=== PATIENT | female | born 1975 | race Caucasian/White ===

== ENCOUNTER 2016-06-17 10:33 | Emergency (ER) | payer OTHER ==
[2016-06-17] MEDS ORDERED: predniSONE TAB* 20 MG PO ONE (16:19)
[2016-06-17] MEDS ORDERED: Albuterol/Ipratropium NEB.SOL* Albuterol 2.5 MG/Ipratropium 0.5 MG 3 ML INH ONE (16:19)
[2016-06-17] MEDS ORDERED: Levofloxacin TAB* 250 MG PO ONE (16:20)
--- NOTE | 2016-06-17 17:21 | RAD ---
INDICATION: Shortness of breath and cough COMPARISON: Most recent comparison chest x-rays dated August 14, 2014 TECHNIQUE: PA and lateral views of the chest were obtained. FINDINGS: The heart and mediastinum are normal in size and contour. The lungs are grossly clear. There is no evidence of large pleural effusion. Visualized bones are normal for the patient's age. There is no radiographic evidence of free air beneath the diaphragm IMPRESSION: No radiographic evidence of acute cardiopulmonary disease.
[2016-06-17] MEDS ORDERED: Albuterol HFA INHALER* 8 gm MDI INH ONE (18:18)
[2016-06-17 18:36] VITALS: BP 128/88
--- NOTE | 2016-06-20 07:59 | ED ---
Yadira Petit Rebecca, scribed for Abdias Mccormick MD on 06/17/16 at 1607 . Asthma - HPI Summary HPI Summary: Pt is a 40 y/o F who presents to ED c/o asthma exacerbation characterized as SOB and wheezing. SOB began suddenly 2 days ago and has been intermittent since onset. Sx aggravated by walking, alleviated by nothing. Additionally c/o HARRIS, vomiting, coughing and R ear pain. HARRIS is currently ranked 8/10. Denies CP, fever , hematemesis, abd pain, dysuria, rhinorrhea, sore throat and edema. SHx smoking. Denies recent travel. PMHx asthma. Does not have an inhaler due to losing her insurance, which he has regained but has not found a PCP yet. IF THERE IS ONE, PLEASE SEE DICTATION BY DR. MCCORMICK FOR FURTHER INFORMATION. - History of Current Complaint Chief Complaint: EDAsthma Stated Complaint: HEADACHE/VOMITING/SOB Time Seen by Provider: 06/17/16 16:05 Hx Obtained From: Patient Onset/Duration: Sudden Onset, Lasting Days - 2 days, Still Present Timing: Intermittent Episode Lasting Initial Severity: Moderate Current Severity: Severe Pain Intensity: 8 Pain Scale Used: 0-10 Numeric Location/Character: Wheezing Aggravating Symptoms: Exertion Alleviating Symptoms: Nothing Associated Signs and Symptoms: Positive: Shortness of Breath - Allergy/Home Medications Allergies/Adverse Reactions: Allergies Allergy/AdvReac Type Severity Reaction Status Date / Time Penicillins Allergy Severe Hives Verified 07/23/15 10:38 Raspberry Allergy Hives Verified 07/23/15 10:38 PMH/Surg Hx/FS Hx/Imm Hx Endocrine/Hematology History: Denies: Hx Anticoagulant Therapy Respiratory History: Reports: Hx Asthma Psychiatric History: Reports: Hx Depression - Cancer History Hx Chemotherapy: No Hx Radiation Therapy: No - sister has uterine cancer Infectious Disease History: No Infectious Disease History: Denies: Traveled Outside the [place] in Last 30 Days - Family History Known Family History: Positive: Other - Breast CA, COPD - Social History Alcohol Use: Occasionally Alcohol Amount: 2/day Substance Use Type: Reports: None Hx Tobacco Use: Yes Smoking Status (MU): Heavy Every Day Tobacco Smoker Review of Systems - ROS Summary Review of Systems Summary: IF THERE IS ONE, PLEASE SEE DICTATION BY DR. MCCORMICK FOR FURTHER INFORMATION. Positive: Ear Ache - right. Negative: Sore Throat, Nasal Discharge Negative: Chest Pain Positive: Shortness Of Breath, Cough, Other - wheezing Positive: Vomiting, Other - Denies hematemesis. Negative: Abdominal Pain Negative: dysuria Negative: Edema Positive: Headache All Other Systems Reviewed And Are Negative: Yes Physical Exam - Summary Physical Exam Summary: GENERAL: Awake, alert, oriented, no acute distress, very pleasant HEAD/FACE: Head is normocephalic, atraumatic EYES: Anicteric sclera, clear conjunctiva ENT: Mucous membranes moist, no erythema, no discharge, no lesions, neck is supple, trachea is midline, no JVD CARDIAC: Regular rate and rhythm, S1, S2, no rub, no murmur, no gallop, 2+ radial and pedal pulses bilaterally RESPIRATORY: Clear to auscultation bilaterally with no rales or rhonchi, non- tender. Diffuse wheezing. ABDOMEN: Bowel sounds positive, no bruit, soft, non-tender, no CVA tenderness EXTREMITIES: No edema, warm, dry, moving all extremities in a grossly normal manner NEUROLOGICAL: Mood is appropriate, moving all extremities in a grossly normal manner IF THERE IS ONE, PLEASE SEE DICTATION BY DR. MCCORMICK FOR FURTHER INFORMATION. Triage Information Reviewed: Yes Vital Signs On Initial Exam: Initial Vitals Temp Pulse Resp BP Pulse Ox 98.8 F 94 24 157/101 98 06/17/16 10:42 06/17/16 10:42 06/17/16 10:42 06/17/16 10:42 06/17/16 10:42 Vital Signs Reviewed: Yes Diagnostics - Vital Signs Vital Signs Temp Pulse Resp BP Pulse Ox 06/17/16 10:42 98.8 F 94 24 157/101 98 - Laboratory Lab Statement: Any lab studies that have been ordered have been reviewed, and results considered in the medical decision making process. - Radiology CXR Xray Interpretation: No Acute Changes Radiology Interpretation Completed By: Radiologist Asthma Course/Dx - Diagnoses Provider Diagnoses: Bronchitis Discharge - Discharge Plan Condition: Stable Disposition: HOME Prescriptions: Levofloxacin TAB* [Levaquin TAB*] 750 mg PO DAILY #10 tab predniSONE TAB* [Deltasone TAB*] 60 mg PO DAILY #4 tab Patient Education Materials: Acute Bronchitis (ED) Referrals: Eufemia Alvarado MD [Primary Care Provider] - 3 Days Additional Instructions: Follow up with your primary care physician within the next 3 days. PLEASE RETURN TO THE EMERGENCY DEPARTMENT FOR NAUSEA, VOMITING, FEVER, PHOTOPHOBIA, CHEST PAIN, OR IF SYMPTOMS WORSEN. The documentation as recorded by the Yadira argueta Rebecca accurately reflects the service I personally performed and the decisions made by me, Abdias Mccormick MD.
== END 2016-06-17 16:45 | disposition home or self-care (01) ==
LOC: ED 10:33
DX: J40 Bronchitis, not specified as acute or chronic (principal); J45.901 Unspecified asthma with (acute) exacerbation; R06.02 Shortness of breath; R06.2 Wheezing; R05 Cough; H92.09 Otalgia, unspecified ear; F17.210 Nicotine dependence, cigarettes, uncomplicated
CPT/HCPCS: 71020; 99284; A9270-GY; J7512

== ENCOUNTER 2016-11-01 09:01 | Emergency (ER) | payer OTHER ==
[2016-11-01] MEDS ORDERED: Morphine INJ* 4 MG/ML 1 ML SYRINGE IV ONE (09:19)
[2016-11-01] MEDS ORDERED: NS 0.9% 1000 ML* 1,000 ML IV ONE (09:19)
[2016-11-01] MEDS ORDERED: Ketorolac INJ* 30 MG/ML 1 ML VIAL IV PUSH ONE (09:19)
--- NOTE | 2016-11-01 09:21 | ED ---
Abdominal Pain/Female - HPI Summary HPI Summary: 41F presents with left side flank pain since last night. It started with left sided back pain last night. Has history of back pain but not in this location. Denies any loss of bowel or bladder or saddle anaesthesia. Sates the pain now radiates to front of abdomen to LLQ. She sandeep any n/v/d/c. She denies any fever. She denies any vaginal discharge or bleeding. She denies any dysuria, hematuria, frequency, or urgency. She has never had this pain before. She states nothing makes it better or worst. She has history of cholecystectomy. - History of Current Complaint Chief Complaint: EDFlankPain Stated Complaint: LT SIDE FLANK PAIN Time Seen by Provider: 11/01/16 09:09 Pain Intensity: 10 Allergies/Adverse Reactions: Allergies Allergy/AdvReac Type Severity Reaction Status Date / Time Penicillins Allergy Severe Hives Verified 07/23/15 10:38 Raspberry Allergy Hives Verified 07/23/15 10:38 PMH/Surg Hx/FS Hx/Imm Hx Endocrine/Hematology History: Denies: Hx Anticoagulant Therapy Respiratory History: Reports: Hx Asthma Psychiatric History: Reports: Hx Depression - Cancer History Hx Chemotherapy: No Hx Radiation Therapy: No - sister has uterine cancer Infectious Disease History: No Infectious Disease History: Denies: Traveled Outside the [place] in Last 30 Days - Family History Known Family History: Positive: Unknown, Other - Breast CA, COPD - Social History Alcohol Use: Occasionally Alcohol Amount: 2/day Substance Use Type: Reports: None Hx Tobacco Use: Yes Smoking Status (MU): Heavy Every Day Tobacco Smoker Review of Systems Negative: Fever Negative: Chest Pain Negative: Shortness Of Breath Positive: Abdominal Pain - left side. Negative: Vomiting, Diarrhea, Nausea Positive: flank pain - left. Negative: dysuria, frequency, urgency All Other Systems Reviewed And Are Negative: Yes Physical Exam Triage Information Reviewed: Yes Vital Signs On Initial Exam: Initial Vitals Temp Pulse Resp BP Pulse Ox 97.7 F 74 16 154/86 97 11/01/16 09:04 11/01/16 09:04 11/01/16 09:04 11/01/16 09:04 11/01/16 09:04 Vital Signs Reviewed: Yes Appearance: Positive: Well-Appearing Skin: Positive: Warm, Dry Head/Face: Positive: Normal Head/Face Inspection Eyes: Positive: Normal, Conjunctiva Clear ENT: Positive: Normal ENT inspection, Pharynx normal, TMs normal Respiratory/Lung Sounds: Positive: Clear to Auscultation, Breath Sounds Present Cardiovascular: Positive: Normal, RRR Abdomen Description: Positive: Nontender, Soft, Other: - tenderness over lower back. Negative: CVA Tenderness (L) Bowel Sounds: Positive: Present Musculoskeletal: Positive: Other - neg SLR Diagnostics - Vital Signs Vital Signs Temp Pulse Resp BP Pulse Ox 11/01/16 09:04 97.7 F 74 16 154/86 97 - Laboratory Result Diagrams: 11/01/16 09:50 11/01/16 09:50 Lab Statement: Any lab studies that have been ordered have been reviewed, and results considered in the medical decision making process. - CT abd CT Interpretation: No Acute Changes - IMPRESSION: STATUS POST CHOLECYSTECTOMY. NO HYDRONEPHROSIS OR NEPHROLITHIASIS. CT Interpretation Completed By: Radiologist Re-Evaluation - Re-Evaluation First Eval Re-Evaluation Time: 11:00 Change: Improved Comment: pain improved Abdominal Pain Fem Course/Dx - Course Course Of Treatment: 41F presents with flank pain since yesterday. states started in lower back and since then has radiated to front. denies any UTI symptoms. denies any n/v/d. On exam pain is a little low to be kidney but will work up for kideny stone. CT abdomen normal. labs normal WBC and crp. u/a normal. will treat as musculoskeletal back pain with muscle relaxer. patient understands and agrees with plan - Diagnoses Differential Diagnosis: Positive: Renal Colic, Urinary Tract Infection, Other - pyelonephritis, back pain Provider Diagnoses: Back pain Discharge - Discharge Plan Condition: Good Disposition: HOME Prescriptions: Cyclobenzaprine TAB* [Flexeril 10 MG TAB*] 10 mg PO TID PRN #9 tab PRN Reason: Pain Patient Education Materials: Flank Pain (ED) Referrals: Eufemia Alvarado MD [Primary Care Provider] - Additional Instructions: Take muscle relaxers three times a day for 3 days Use ibuprofen or Tylenol for pain every 6 hours ice/heat area, move as much as possible Follow up with primary within 5 days Return to ED if unable to ambulate or develop any new or worsening symptoms
[2016-11-01 10:03] LABS: Hematocrit 43 % (35-47); Hemoglobin 14.4 g/dl (12.0-16.0); Mean Corpuscular HGB Conc 33 g/dl (31-36); Mean Corpuscular Hemoglobin 33 pg (27-31); Mean Corpuscular Volume 100 fL (80-97); Mean Platelet Volume 9 um3 (7.4-10.4); Red Blood Count 4.35 10^6/ul (4.0-5.4); Red Cell Distribution Width 15 % (10.5-15); White Blood Count 4.3 10^3/ul (3.5-10.8)
[2016-11-01 10:07] LABS: Urine Bilirubin Negative (Negative); Urine Glucose Negative (Negative); Urine Nitrite Negative (Negative)
[2016-11-01 10:19] LABS: Albumin 4.2 g/dL (3.2-5.2); BUN/Creatinine Ratio 13.9 (8-20); Calcium 9.7 mg/dL (8.6-10.3); EGFR Non-African American 90.2 (>60); Globulin 3.6 g/dL (2-4); Total Protein 7.8 g/dL (6.4-8.9)
--- NOTE | 2016-11-01 10:31 | RAD ---
CLINICAL HISTORY: Left flank pain COMPARISON: February 01, 2014 TECHNIQUE: Multiple contiguous axial CT scans were obtained of the abdomen and pelvis, without intravenous contrast enhancement. Coronal and sagittal multiplanar reformations are submitted for review. Oral contrast was not administered. FINDINGS: The study is limited by the lack of intravenous contrast. This limits evaluation of the solid organs and vasculature. LUNG BASES: The lung bases are clear. LIVER: The liver is normal in shape, size, contour, and attenuation. BILE DUCTS: There is no intrahepatic or extrahepatic biliary dilatation. GALLBLADDER: The gallbladder is not visualized. Surgical clips are noted in the gallbladder fossa. PANCREAS: The pancreas is normal, without mass or ductal dilatation. SPLEEN: Normal in size and appearance. UPPER GI TRACT: Evaluation of the gastrointestinal tract is limited by incomplete gastric distention. The upper GI tract is unremarkable. SMALL BOWEL AND MESENTERY: The small bowel is normal in contour, course, and caliber. There is no obstruction or dilatation. COLON: The colon is normal in contour, course, caliber. There is no pericolonic inflammatory change. There is a tubular, vermiform, hollow viscus that is blind ending, and originates from the cecum, consistent with a normal appendix. There is no periappendiceal inflammatory change. This is best seen on axial images 102 through 112 ADRENALS: Normal bilaterally. KIDNEYS: The kidneys are normal in shape, size, contour, and axis. There is no hydronephrosis or nephrolithiasis. BLADDER: The bladder is smooth in contour. PELVIC ORGANS: The uterus and adnexa are grossly normal for technique. AORTA: The aorta is normal. IVC: Unremarkable LYMPH NODES: There is no lymphadenopathy by size criteria. ABDOMINAL WALL: There is no evidence for abdominal wall hernia. BONES AND SOFT TISSUES: The bones and soft tissues are unremarkable. OTHER: None IMPRESSION: STATUS POST CHOLECYSTECTOMY. NO HYDRONEPHROSIS OR NEPHROLITHIASIS.
[2016-11-01 12:08] LABS: Potassium 4.7 mmol/L (3.5-5.0)
[2016-11-01 12:32] VITALS: BP 137/89
== END 2016-11-01 12:32 | disposition home or self-care (01) ==
LOC: ED 09:01
DX: R10.84 Generalized abdominal pain (principal); F17.210 Nicotine dependence, cigarettes, uncomplicated; M54.9 Dorsalgia, unspecified
CPT/HCPCS: 36415; 74176; 80053; 81003; 83690; 84702; 85025; 86141; 96374; 96375; 99283; J1885; J2270

== ENCOUNTER 2017-08-25 14:27 | Observation (INO) | payer OTHER ==
[2017-08-25 14:56] LABS: ABS Basophils 0 10^3/ul (0-0.2); ABS Eosinophils 0.1 10^3/ul (0-0.6); ABS Lymphocytes 1.8 10^3/ul (1.0-4.8); ABS Monocytes 0.2 10^3/ul (0-0.8); ABS Neutrophils 2.9 10^3/ul (1.5-7.7); ABS Nucleated RBC 0 10^3/ul; Eosinophil % 1.7 % (0-6); Hematocrit 36 % (35-47); Hemoglobin 12.5 g/dl (12.0-16.0); Lymphocyte % 35.6 % (25-47); Mean Corpuscular HGB Conc 35 g/dl (31-36); Mean Corpuscular Hemoglobin 35 pg (27-31); Mean Corpuscular Volume 102 fL (80-97); Mean Platelet Volume 7 um3 (7.4-10.4); Nucleated Red Blood Cells % 0; Platelet Count 274 10^3/ul (150-450); Red Blood Count 3.56 10^6/ul (4.0-5.4); Red Cell Distribution Width 14 % (10.5-15)
[2017-08-25 15:30] LABS: EGFR Non-African American 75.5 (>60)
--- NOTE | 2017-08-25 15:44 | RAD ---
INDICATION: Chest pain. COMPARISON: Comparison is made with a prior study from June 17, 2016. TECHNIQUE: Dual-energy PA and lateral views of the chest were obtained. FINDINGS: The heart is within normal limits in size. Mediastinal and hilar contours appear within normal limits. The lungs are clear. No pleural effusion or pneumothorax is seen. IMPRESSION: NO EVIDENCE FOR ACTIVE CARDIOPULMONARY DISEASE.
[2017-08-25] MEDS ORDERED: Nitroglycerin 2% OINT* 1 GM PAK TOPICAL ONE (17:33)
[2017-08-25] MEDS ORDERED: Albuterol 2.5 MG/3 ML NEB.SOL* (0.083%) INH PRN (18:02)
[2017-08-25] MEDS ORDERED: NS 0.9% 1000 ML* 1,000 ML IV SCH (18:15)
[2017-08-25] MEDS ORDERED: Azithromycin IV(*) 500 MG in NS 0.9% 250 ML* 250 ML IVPB SCH (19:00)
[2017-08-25] MEDS: Mometasone/Formoter 200/5 MDI INH SCH ×2 (19:25→19:40)
[2017-08-25] MEDS: Albuterol/Ipratropium NEB.SOL* Albuterol 2.5 MG/Ipratropium 0.5 MG 3 ML INH SCH ×2 (19:25→19:41)
[2017-08-25] MEDS: predniSONE TAB* 20 MG PO SCH (19:41)
--- NOTE | 2017-08-26 01:57 | HP ---
HISTORY AND PHYSICAL: DATE OF ADMISSION: 08/25/17 PRIMARY CARE PROVIDER: None. ATTENDING PHYSICIAN WHILE IN THE HOSPITAL: Dr. Joe Murphy* (report being dictated by Dom Espinal NP). CHIEF COMPLAINT: 1. Presyncope. 2. Chest pain. HISTORY OF PRESENT ILLNESS: Ms. Newberry is a 41-year-old female patient. She carries a history of asthma and depression and a remote history of IV drug use in the past. She comes in. She states the last couple of days, she has not been feeling well. She has had cold-like symptoms, sore throat, cough, aching all over, chills. No documented fevers. She has had episodes of occasional diarrhea. She denied having any abdominal pain or chest pain prior to today. She did admit to having again the cough, worsening shortness of breath, and just not feeling well, generalized malaise. She states her appetite has been okay, but she was concerned because today she was sitting on her bed, around 1: 30, she was getting ready for work and it was noted that everything went black. She felt like she was going to faint, she did not faint. She said she started having a pressure on her chest and at that point, she called her boyfriend into the room and they called 911 and she came into the hospital. She says the discomfort, she does not know how long it lasted. She described it as a tightness, heaviness in her chest going into the right side, down the right arm, in addition to this, worse with taking a deep breath. She denied having any discomfort like this previously. Denied having any exertional discomfort. She says that she is not having any discomfort now. The only discomfort she has now is on the right arm and the right neck area. She denies having any chest discomfort. Currently, she denies having any abdominal pain. She says she has not been vomiting. Again, there have been no urinary symptoms , but there has been a cough, and just not feeling well over the last couple of days. She came into the ED today. There was concern for the chest discomfort. We were asked to evaluate for admission. PAST MEDICAL HISTORY: Significant for: 1. Asthma. 2. Depression. 3. Remote history of IV drug use in the past. PAST SURGICAL HISTORY: She has had cholecystectomy. MEDICATIONS: Her home meds include only albuterol 2 puffs every 4 hours as needed. ALLERGIES TO MEDICATIONS: Include PENICILLIN. FAMILY HISTORY: Mother had a history of breast cancer. Father has history of lung cancer. SOCIAL HISTORY: She is about a qvud-b-qlle-a-day smoker. She has been smoking for about 23 years. She does drink 1 to 2 beers a day. Surrogate decision maker is not appointed at this point. She did admit to using crack cocaine occasionally. REVIEW OF SYSTEMS: There is no documented fever. She denied having any significant weight change. There was no double vision. She denies having any ear discharge. There was rhinorrhea. There was sore throat. There was no thyroid enlargement. She does admit to chest pain from my HPI. There is shortness of breath particularly with exertion. There is no orthopnea. There is no nocturnal dyspnea. She denies having any abdominal discomfort. She did admit to having some diarrhea, but no nausea, vomiting. No dysuria, no frequency. There was no seizure, no loss of consciousness. No pruritus and no skin ulcerations. Review of 14 systems was completed, all others negative. PHYSICAL EXAMINATION GENERAL: At this time, Ms. Newberry is a 41-year-old female patient. She is sitting in the ED stretcher. She does not appear to be in any acute distress. VITAL SIGNS: Blood pressure 152/91, pulse 62, respirations 15, O2 sat 95%, temperature 99.1. HEENT: Head: Atraumatic. Eyes: EOMs are intact. Sclerae anicteric and not pale. Throat: Oral mucosa appears to be dry. No oropharyngeal erythema. NECK: Supple. LUNGS: She did have expiratory wheezing noted in the upper lobes. Equal diaphragmatic expansion. HEART: Sounds S1, S2. Regular rate and rhythm. No murmurs, rubs, or gallops. ABDOMEN: Soft, it was flat, nontender. Bowel sounds were present. EXTREMITIES: Pulses were 2+ throughout. She is moving all 4 extremities with 5 /5 strength. NEUROLOGICAL: The patient is awake, alert, she is oriented x3. Tongue midline. Software Development Coordinator were equal. No gross focal deficits. SKIN: Intact. DIAGNOSTIC STUDIES/LAB DATA: WBC 5.0, RBC of 3.56, hemoglobin of 12.5, hematocrit of 36, platelet count of 274. D-dimer less than 200. Sodium 136, potassium 3.6, chloride 106, bicarb 25, BUN 7, creatinine 0.84, glucose 93, lactate 2.1, calcium 8.2. Total bili 0.2, AST 19, ALT 16, alk phos 70. Troponin 0, repeat 0. Albumin 3.2. EKG today, normal sinus rhythm, rate of 79. No ST elevation or T-wave inversions are noted. She had a chest x-ray, showed no evidence of active cardiopulmonary disease. Old medical records were reviewed. ASSESSMENT AND PLAN: Ms. Newberry is a 41-year-old female patient coming into the ED today with complaints of presyncopal episodes. In addition to this, complains of chest discomfort and cold symptoms. We were asked to evaluate for admission. She will be admitted under observation status for: 1. Chest pain. I suspect this is probably respiratory related. She said the pain got worse with taking a deep breath, it is mostly on the right side. She has been coughing for the last couple of days. In addition to this, she had upper respiratory infection symptoms. I will cycle another set of enzymes, get an echo in the morning to be sure. At this point, because she is wheezing on exam, I do not think a stress test is a good idea, but we will rule her out and get the echo and place her on telemetry and we will continue to follow this closely. I will check an ESR and CRP. 2. Asthma with mild exacerbation. She is having some wheezing on exam. I am going to give her some steroids, prednisone 40 mg daily. In addition to this, I have ordered azithromycin. I will order nebulizers every 6 hours while awake and we will continue Dulera and I am concerned that she might have an early bronchitis. I am also checking her for the flu. Sputum culture, legionella antigen, Streptococcus pneumoniae antigen. 3. History of depression. Supportive care. 4. Polysubstance abuse. Continue supportive care. 5. DVT prophylaxis. I have ordered SCDs. 6. Code status. Full code. 7. Fluids, electrolytes, and nutrition. She can have a heart-healthy diet. TIME SPENT: On admission 60 minutes, greater than half the time spent face-to- face with the patient obtaining my history and physical, other half of the time was spent going over the plan of care with the patient and implementing the plan of care. I did discuss the plan of care with my attending, Dr. Murphy; he is in agreement. DOM ESPINAL NP [id number]/[facility] #: [id number] SABRINA
[2017-08-26] MEDS: Albuterol/Ipratropium NEB.SOL* Albuterol 2.5 MG/Ipratropium 0.5 MG 3 ML INH SCH ×2 (04:28→08:33)
[2017-08-26 06:40] LABS: ABS Basophils 0 10^3/ul (0-0.2); ABS Eosinophils 0 10^3/ul (0-0.6); ABS Lymphocytes 0.7 10^3/ul (1.0-4.8); ABS Monocytes 0.1 10^3/ul (0-0.8); ABS Neutrophils 3.8 10^3/ul (1.5-7.7); ABS Nucleated RBC 0 10^3/ul; Eosinophil % 0 % (0-6); Hematocrit 36 % (35-47); Hemoglobin 12.6 g/dl (12.0-16.0); Lymphocyte % 14.6 % (25-47); Mean Corpuscular HGB Conc 35 g/dl (31-36); Mean Corpuscular Hemoglobin 35 pg (27-31); Mean Corpuscular Volume 102 fL (80-97); Mean Platelet Volume 8 um3 (7.4-10.4); Nucleated Red Blood Cells % 0; Platelet Count 238 10^3/ul (150-450); Red Blood Count 3.56 10^6/ul (4.0-5.4); Red Cell Distribution Width 14 % (10.5-15); White Blood Count 4.6 10^3/ul (3.5-10.8)
[2017-08-26 07:22] LABS: EGFR Non-African American 83.5 (>60)
[2017-08-26] MEDS: predniSONE TAB* 20 MG PO SCH (08:00)
[2017-08-26] MEDS: Mometasone/Formoter 200/5 MDI INH SCH (08:33)
[2017-08-26] MEDS ORDERED: Albuterol/Ipratropium NEB.SOL* Albuterol 2.5 MG/Ipratropium 0.5 MG 3 ML INH PRN (09:43)
--- NOTE | 2017-08-26 11:18 | ECHO ---
Patient: VIJAY SHAVER [facility] Rec#: [id number] : 1975 Date: 08/26/2017 Age: 41y Height: 165.1 cm / 65.0 in Weight: 87.09 kg / 191.9 lbs Sex: F BSA: 1.94 Room#: 453 Admit Date#: 08/25/2017 Type: Inpatient Referring: Naeem Carlson NP Reading: Claudia Luna MD Outbound Sales Professional: [facility] Transthoracic Echocardiogram Indication: Chest pain BP: 143/81 HR: 140 Rhythm: Tachycardia Findings History: Asthma, remote IVDA, SOB, smoker. Technical Comments: The study quality is good. Completed at 1000. Left Ventricle: The left ventricular chamber size is normal. There is no left ventricular hypertrophy. Global left ventricular wall motion and contractility are within normal limits. There is normal left ventricular systolic function. The estimated ejection fraction is 55-60%. There is no consistent Doppler evidence of clinically significant diastolic dysfunction. Left Atrium: The left atrium is mildly dilated. Right Ventricle: Moderator Band present. The right ventricular cavity size is normal. The right ventricular global systolic function is normal. Right Atrium: The right atrial cavity size is normal. Aortic Valve: The aortic valve is trileaflet. There is no evidence of aortic valve thickening. There is no evidence of aortic regurgitation. There is no evidence of aortic stenosis. Mitral Valve: The mitral valve leaflets are mildly thickened. There is trace to mild mitral regurgitation. There is no evidence of mitral stenosis. Tricuspid Valve: The tricuspid valve leaflets are normal. There is trace tricuspid regurgitation. Unable to estimate the right ventricular systolic pressure. There is no tricuspid stenosis. Pulmonic Valve: The pulmonic valve appears normal. There is no evidence of pulmonic regurgitation. There is no pulmonic stenosis. Pericardium: There is no significant pericardial effusion. Aorta: There is borderline dilatation of the ascending aorta. There is no dilatation of the aortic arch. The aortic root is normal in size. Pulmonary Artery: The main pulmonary artery is not well visualized. Venous: The inferior vena cava appears normal in size. There is an approximate 50% respiratory change in the inferior vena cava dimension. Conclusions The left ventricular chamber size is normal. Global left ventricular wall motion and contractility are within normal limits. The estimated ejection fraction is 55-60%. The right ventricular global systolic function is normal. There is trace to mild mitral regurgitation. There is trace tricuspid regurgitation. No prior echo to compare. Measurements Name Value Normal Range RVIDd (AP) 2D 2.8 cm (0.9 - 2.6) RVDdMajor (2D) 3.9 cm (2.2 - 4.4) RVAW (2D) 0.5 cm (0.2 - 0.5) RAd ISD 4CH 4.7 cm (3.4 - 4.9) RA (A4C)W 3.8 cm (2.9 - 4.6) IVSd (2D) 0.9 cm (0.6 - 1) LVPWd (2D) 1 cm (0.6 - 1) LVIDd (2D) 5 cm (3.6 - 5.4) LVIDs (2D) 3.4 cm - LV FS (2D) 31 % (25 - 45) Aortic Annulus 2.1 cm (1.4 - 2.6) Ao root diameter (2D) 2.9 cm (2.1 - 3.5) Ascending Ao 3.4 cm (2.1 - 3.4) Aortic arch 2.7 cm (1.8 - 3.4) LA dimension (AP) 2D 3.9 cm (2.3 - 3.8) LAd ISD 4CH 5.6 cm (2.9 - 5.3) LA ISD 4CH W 4 cm (2.5 - 4.5) Name Value Normal Range LA ESV SP 4CH (A/L) 59 ml - LA ESV SP 2CH (A/L) 69 ml - LA ESV BP (A/L) 65 ml - LA ESV BP (A/L) index 33 ml/m2 - LA ESV SP 4CH (MOD) 55 ml - LA ESV SP 2CH (MOD) 68 ml - Name Value Normal Range MV E-wave Vmax 1.18 m/sec - MV deceleration time 153.5 msec - MV A-wave Vmax 0.88 m/sec - MV E:A ratio 1.33 ratio - LV septal e' Vmax 0.08 m/sec - LV lateral e' Vmax 0.11 m/sec - LV E:e' septal ratio 14.75 ratio - LV E:e' lateral ratio 10.73 ratio - Name Value Normal Range AV Vmax 1.7 m/sec - AV VTI 35 cm - AV peak gradient 11.1 mmHg - AV mean gradient 5.46 mmHg - LVOT Vmax 1.3 m/sec - LVOT VTI 27.7 cm - LVOT peak gradient 6.76 mmHg - LVOT mean gradient 3.13 mmHg - RUSSEL Vmax 1.13 m/sec - Name Value Normal Range IVC diameter 2 cm - Name Value Normal Range PV Vmax 1.19 m/sec - PV peak gradient 5.74 mmHg -
[2017-08-26 11:38] VITALS: BP 156/92
--- NOTE | 2017-08-27 05:31 | DS ---
CC: Dr. Eufemia Alvarado; [facility] * DISCHARGE SUMMARY: DATE OF ADMISSION: 08/25/17 DATE OF DISCHARGE: 08/26/17 PRIMARY CARE PROVIDER: Dr. Eufemia Alvarado. The patient is also switching her providers to [facility]. She does not know who she is going to have in [facility]. DISCHARGE DIAGNOSES: 1. Asthma exacerbation. 2. Acute bronchitis. 3. Chest pain likely related to dyspnea due to above. 4. Near syncope due to above. SECONDARY DIAGNOSES: 1. History of asthma. 2. History of depression. 3. History of remote IV drug use. 4. Status post cholecystectomy remotely. MEDICATIONS AT DISCHARGE: Include: 1. Ventolin inhaler on a p.r.n. basis. 2. Azithromycin 250 mg p.o. daily for 4 days total. 3. Prednisone 50 mg daily for 4 days total. LABORATORY DATA AND STUDIES PERFORMED DURING THE HOSPITAL STAY: Included: On 08/26/17, sodium of 134, potassium 2.7, chloride 104, carbon dioxide 22, BUN 10 , creatinine 0.77. CBC: White blood cell count 4.6, hemoglobin of 12.6, hematocrit of 36, MCV of 102, and platelets of 238. Influenza testing was negative. Transthoracic echocardiogram obtained on the day of discharge showed EF of 55% to 60% with global left ventricular wall motion and contractility within normal limits. There was [id number] mitral regurgitation and trace tricuspid regurgitation. The patient's troponins were at 0 throughout her hospital stay. HOSPITALIZATION COURSE: Nadira Newberry is a 41-year-old female who has history of smoking and asthma, who has had problems with upper respiratory infection symptoms with coughing and shortness of breath and wheezing for a few days and she had an episode of near syncope and substernal chest pressure. She presented to the ED. She was observed overnight. She was diagnosed with asthma exacerbation and bronchitis. At the time of discharge, she feels much better. She was observed on telemetry monitored bed with no evidence of arrhythmia apart from tachycardia when she was on nebulizer treatments. Her near syncope was like related to dyspnea due to asthma exacerbation. Nevertheless, a transthoracic echocardiogram was obtained which showed no evidence of wall motion abnormality. Her EF was good. Once again, her telemetry showed no arrhythmias. The patient does have history of smoking and obesity and she would be an appropriate candidate for cardiac stress test, although we decided not to do it today during her asthma exacerbation period. She is recommended to follow up with her primary care provider whether it is Dr. Eufemia Alvarado or at [facility] and to have an outpatient cardiac stress test scheduled once her upper respiratory infection symptoms resolve. PHYSICAL EXAM AT THE TIME OF DISCHARGE: Blood pressure of 156/92, heart rate of 65 and regular, respiratory rate 18, oxygen saturation 97% on room air, temperature 99.0. General: The patient is a very pleasant 41-year-old female, who is in no acute distress. Alert, awake, and oriented x3. HEENT: Head: Atraumatic, normocephalic. Eyes: Pupils are equal, reactive to light and accommodation. Oropharynx clear. Mucosa moist. Neck: Supple. No JVD. No bruits bilaterally. Cardiovascular: Regular rate and rhythm. No murmur. Respiratory: Scattered wheezes in the bilateral mid lungs left more than right. Abdomen: Soft, nontender. Bowel sounds are present in all 4 quadrants. Extremities: There is no edema. Pulses +2 bilaterally. No clubbing or cyanosis. Neuro Evaluation: Speech clear. Cranial nerves II through XII are grossly intact. Motor strength is 5/5 bilaterally. Please note that this is a short summary of the patient's hospitalization. Please refer to further medical records for details. [id number]/[facility] #: [id number] MTDD
== END 2017-08-26 14:25 | disposition home or self-care (01) ==
LOC: ED 14:27 → MEDTELE 18:00
PROVIDERS: ADMIT Internal Medicine; ATTEND Internal Medicine
DX: J45.901 Unspecified asthma with (acute) exacerbation (principal); J20.9 Acute bronchitis, unspecified; R07.9 Chest pain, unspecified; R55 Syncope and collapse; F32.9 Major depressive disorder, single episode, unspecified; Z79.899 Other long term (current) drug therapy; Z88.0 Allergy status to penicillin; F17.210 Nicotine dependence, cigarettes, uncomplicated
CPT/HCPCS: 36415; 71046; 80048; 80053; 83605; 84484; 85025; 85379; 85652; 86140; 87502; 87899; 93005; 93306; 94640; 96360; 96361; 99284; 99406; A9270-GY; G0378; J0456; J7512

== ENCOUNTER 2018-01-04 14:53 | Emergency (ER) | payer SELFPAY ==
--- NOTE | 2018-01-04 16:25 | RAD ---
INDICATION: Left leg swelling. COMPARISON: There are no prior studies available for comparison. TECHNIQUE: Multiple real-time, color flow and Doppler tracings of the left lower extremity were obtained. FINDINGS: The common femoral, femoral, profunda femoral and popliteal veins all demonstrate normal compressibility, augmentation with compression and phasic response with respiration. The posterior tibial and peroneal veins appear patent on color Doppler imaging. Evaluation of the calf is limited due to swelling. IMPRESSION: LIMITED EXAM OF THE CALF, NO EVIDENCE FOR DEEP VENOUS THROMBOSIS.
[2018-01-04 18:45] LABS: EGFR Non-African American 102.8 (>60)
[2018-01-04] MEDS ORDERED: Ibuprofen TAB* 800 MG PO ONE (19:02)
[2018-01-04 19:19] LABS: Hematocrit 43 % (35-47); Hemoglobin 14.5 g/dl (12.0-16.0); Mean Corpuscular HGB Conc 34 g/dl (31-36); Mean Corpuscular Hemoglobin 37 pg (27-31); Mean Corpuscular Volume 108 fL (80-97); Mean Platelet Volume 7.6 um3 (7.4-10.4); Platelet Count 359 10^3/ul (150-450); Red Blood Count 3.96 10^6/ul (4.00-5.40); Red Cell Distribution Width 16 % (10.5-15); White Blood Count 6.5 10^3/ul (3.5-10.8)
--- NOTE | 2018-01-04 19:22 | UC ---
Lower Extremity/Ankle HPI - HPI Summary HPI Summary: This is ellie Gonzalez documenting for Cade Valderrama MD. This patient is a 42 y/o female presenting to [facility] with swelling with pain in the L leg and L foot since a month ago. The CC complaint is described as constant but waxing and waning. She reports her L leg is pruritic with occasional numbness in her L foot. She reports worsening pain when she moves or ambulates. She took Advil at 0900 but does not remember the amount. She smokes cigarettes (0.5 PPD). She currently has higher than normal BP and is not taking meds for it. - History of Current Complaint Chief Complaint: EDExtremityLower Stated Complaint: LT LEG SWELLING Time Seen by Provider: 01/04/18 18:45 Hx Obtained From: Patient Onset/Duration: Sudden Onset, Lasting Weeks - It has hurt ot move and walk on it for one month now, Still Present Severity Initially: Severe Severity Currently: Severe Pain Intensity: 10 Pain Scale Used: 0-10 Numeric Aggravating Factor(s): Ambulation Alleviating Factor(s): Nothing - Allergies/Home Medications Allergies/Adverse Reactions: Allergies Allergy/AdvReac Type Severity Reaction Status Date / Time Penicillins Allergy Hives Verified 01/04/18 15:00 raspberry Allergy Hives Verified 01/04/18 15:00 PMH/Surg Hx/FS Hx/Imm Hx Cardiovascular History: Other - pericardial effusion Other Cardiovascular History: pericardial effusion Respiratory History: Asthma - childhood Other Respiratory History: Gallbladder removal, dental issues GI/ History: Other - Gallbladder removal, dental issues Other GI/ History: Gallbladder removal, dental issues Psychological History: Depression, Post Traumatic Stress Disorder Other History Of: Negative For: Anticoagulant Therapy - Surgical History Surgical History: None - Family History Known Family History: Positive: Other - Breast CA, COPD - Social History Alcohol Use: Daily Alcohol Amount: 2-3/day Substance Use Type: None Smoking Status (MU): Light Every Day Tobacco Smoker Household Exposure Type: Cigarettes - Immunization History Most Recent Influenza Vaccination: 2012 Most Recent Tetanus Shot: unknown Most Recent Pneumonia Vaccination: never Review of Systems Skin: Other - Swelling and pruritic of L leg. Swelling and occasional numbness in L foot. Cardiovascular: Other - currently has high BP Neurological: Numbness - left foot All Other Systems Reviewed And Are Negative: Yes Physical Exam - Summary Physical Exam Summary: VITAL SIGNS: Reviewed. GENERAL: Patient is a well-developed and nourished FEMALE who is lying comfortable in the stretcher. Patient is not in any acute respiratory distress. HEAD AND FACE: No signs of trauma. No ecchymosis, hematomas or skull depressions. No sinus tenderness. EYES: PERRLA, EOMI x 2, No injected conjunctiva, no nystagmus. EARS: Hearing grossly intact. Ear canals and tympanic membranes are within normal limits. MOUTH: Oropharynx within normal limits. NECK: Supple, trachea is midline, no adenopathy, no JVD, no carotid bruit, no c- spine tenderness, neck with full ROM. CHEST: Symmetric, no tenderness at palpation LUNGS: Clear to auscultation bilaterally. No wheezing or crackles. CVS: Regular rate and rhythm, S1 and S2 present, no murmurs or gallops appreciated. ABDOMEN: Soft, non-tender. No signs of distention. No rebound no guarding, and no masses palpated. Bowel sounds are normal. EXTREMITIES: FROM in all major joints. Erythema, tenderness, and slight swelling in LLE. Good pulses and good capillary refill. NEURO: Alert and oriented x 3. No acute neurological deficits. Speech is normal and follows commands. SKIN: Dry and warm Triage Information Reviewed: Yes Vital Signs: Initial Vital Signs Temp 98.1 F 01/04/18 14:55 Pulse 101 01/04/18 14:55 Resp 18 01/04/18 14:55 BP 144/110 01/04/18 14:55 Pulse Ox 96 01/04/18 14:55 Vital Signs Reviewed: Yes Diagnostics - Radiology Venous Doppler Study Radiology Interpretation Completed By: Radiologist - LIMITED EXAM OF THE CALF, NO EVIDENCE FOR DEEP VENOUS THROMBOSIS. ED physician has reviewed this radiology report. Lower Extremity Course/Dx - Course Course Of Treatment: Patient is a 42-year-old female who presents to the emergency department with a chief complaint of having left lower extremity pain , redness and swelling. Patient reports that the symptoms started couple weeks ago and has worsened. Patient denies any history of recent traveling or flying. Test results without a significant abnormality. Ultrasound of left lower extremity shows no DVT. Therefore the patient will be healing a prescription for antibiotics since I believe that the patient is having cellulitis. Patient has weak pulses in both lower extremities possibly poor due to chronic peripheral vascular disease. Therefore the patient will be referred to a vascular surgeon to and also will be given a prescription for Bactrim. The patient was instructed to return to the emergency room if she develops more pain, decreased pulses, although has cold lower extremities. The patient understands and agrees. All questions were answered and she has no further concerns. - Differential Dx/Diagnosis Differential Diagnosis/HQI/PQRI: Cellulitis Provider Diagnoses: cellulitis Discharge - Sign-Out/Discharge Documenting (check all that apply): Patient Departure - Discharge Plan Condition: Stable Disposition: HOME Prescriptions: Sulfamethox/Trimethoprim DS* [Bactrim DS 800/160 TAB*] 1 tab PO BID #20 tab Patient Education Materials: Cellulitis (ED) Forms: *Work Release Referrals: Eufemia Alvarado MD [Primary Care Provider] - 3 Days Additional Instructions: RETURN TO ED FOR ANY WORSENING OR NEW SYMPTOMS. FOLLOW UP WITH YOUR PRIMARY CARE PROVIDER WITHIN ONE WEEK FOR HIGH BLOOD PRESSURE NOTED TODAY. - Billing Disposition and Condition Condition: STABLE Disposition: Home
[2018-01-04 19:47] LABS: ABS Basophils 0 10^3/ul (0-0.2); ABS Eosinophils 0.2 10^3/ul (0-0.6); ABS Lymphocytes 1.4 10^3/ul (1.0-4.8); ABS Monocytes 0.3 10^3/ul (0-0.8); ABS Neutrophils 4.6 10^3/ul (1.5-7.7); ABS Nucleated RBC 0 10^3/ul; Eosinophil % 3.1 % (0-6); Lymphocyte % 21.4 % (25-47); Nucleated Red Blood Cells % 0.1
[2018-01-04 20:30] VITALS: BP 147/106
[2018-01-04] MEDS ORDERED: Sulfamethox/Trimethoprim DS 800/160* TAB PO SCH (21:00)
== END 2018-01-04 20:32 | disposition home or self-care (01) ==
LOC: ED 14:53
DX: L03.116 Cellulitis of left lower limb (principal); F17.210 Nicotine dependence, cigarettes, uncomplicated; Z88.0 Allergy status to penicillin
CPT/HCPCS: 36415; 80053; 83605; 83880; 85025; 87040; 99283; A9270-GY

== ENCOUNTER 2018-02-13 13:03 | Emergency (ER) | payer SELFPAY ==
[2018-02-13] MEDS ORDERED: methylPREDNISolone 125 MG* 2 ML VIAL IV ONE (13:07)
[2018-02-13] MEDS ORDERED: Albuterol/Ipratropium NEB.SOL* Albuterol 2.5 MG/Ipratropium 0.5 MG 3 ML INH ONE ×2 (13:07→14:10)
[2018-02-13] MEDS ORDERED: Azithromycin IV(*) 500 MG in NS 0.9% 250 ML* 250 ML IVPB ONE (13:07)
[2018-02-13] MEDS ORDERED: cefTRIAXone(*) 1 GM in NS 0.9% 50 ML* 50 ML IVPB ONE (13:07)
--- NOTE | 2018-02-13 13:14 | ED ---
Shortness of Breath - HPI Summary HPI Summary: This patient is a 42 year old F BIBA to [facility] with a chief complaint of a productive cough with green sputum last night worsening this morning with SOB. EMS reports wheezing on expiration and an SaO2 of 85% on RA. Patient was placed on 1L NC and SaO2 improved to 92. Patient given nebulizer treatment and SaO2 improved to 99%. Patient reports recent LE swelling. Denies CP. Patient was admitted roughly 2 months ago for PNA. PMHx of asthma. Patient is smoker. - History of Current Complaint Chief Complaint: EDShortnessOfBreath Time Seen by Provider: 02/13/18 13:05 Hx Obtained From: Patient Onset/Duration: Lasting Hours Timing: Constant Dyspnea At: Rest Alleviating Factors: EMS Tx Associated Signs & Symptoms: Cough (Productive), Wheezing Related History: Similar Episode - Allergy/Home Medications Allergies/Adverse Reactions: Allergies Allergy/AdvReac Type Severity Reaction Status Date / Time Penicillins Allergy Hives Verified 01/04/18 15:00 raspberry Allergy Hives Verified 01/04/18 15:00 PMH/Surg Hx/FS Hx/Imm Hx Endocrine/Hematology History: Denies: Hx Anticoagulant Therapy Respiratory History: Reports: Hx Asthma Denies: Hx Chronic Obstructive Pulmonary Disease (COPD) Sensory History: Denies: Hx Contacts or Glasses, Hx Eye Injury, Hx Hearing Aid Opthamlomology History: Denies: Hx Contacts or Glasses, Hx Eye Injury Psychiatric History: Reports: Hx Depression - Cancer History Hx Chemotherapy: No Hx Radiation Therapy: No - sister has uterine cancer Infectious Disease History: No - Family History Known Family History: Positive: Respiratory Disease - COPD, Other - Breast CA, COPD - Social History Alcohol Use: Daily Alcohol Amount: 2-3/day Substance Use Type: Reports: None Hx Tobacco Use: Yes Smoking Status (MU): Light Every Day Tobacco Smoker Review of Systems Negative: Chest Pain Positive: Shortness Of Breath, Cough Positive: Edema - BLE All Other Systems Reviewed And Are Negative: Yes Physical Exam - Summary Physical Exam Summary: General: mild respiratory distress Skin: warm, color reflects adequate perfusion, dry Head: normal Eyes: EOMI, NAYANA ENT: normal Neck: supple, nontender Respiratory: breath sounds present, bilateral wheezes and rhonci Cardiovascular: RRR Abdomen: soft, nontender Bowel: present Musculoskeletal: normal, strength/ROM intact Neurological: sensory/motor intact, A&O x3 Psychological: affect/mood appropriate Triage Information Reviewed: Yes Vital Signs Reviewed: Yes Diagnostics - Laboratory Result Diagrams: 02/13/18 13:21 02/13/18 13:21 Lab Statement: Any lab studies that have been ordered have been reviewed, and results considered in the medical decision making process. - Radiology CXR Radiology Interpretation Completed By: Radiologist - Stigmata of obstructive lung disease. No acute pulmonary or cardiac process evident. ED Physician has reviewed this report. - CT Brain CT CT Interpretation Completed By: Radiologist - #. No acute intracranial process evident compared with the January 31, 2018 exam. #. 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 #. Metallic foreign body at the LEFT orbit precludes MRI examination. ED Physician has reviewed this report. - EKG 1319 Cardiac Rate: NL - 79 BPM EKG Rhythm: Sinus Rhythm ST Segment: Normal Ectopy: None EKG Interpretation: QTc prolonged at 488 Course/Dx - Course Course Of Treatment: IMPROVED IN ED. PATIENT DECLINED ADMISSION; WISHES TO GO HOME. F/U PMD; RETURN TO ED IF WORSE. - Diagnoses Provider Diagnoses: Bronchitis, COPD (chronic obstructive pulmonary disease) with acute bronchitis Discharge - Sign-Out/Discharge Documenting (check all that apply): Patient Departure - Discharge Plan Condition: Stable Disposition: HOME Prescriptions: Azithromycin 250 mg PO DAILY #4 tablet predniSONE TAB* [Deltasone 20 MG TAB*] 40 mg PO DAILY #8 tab Patient Education Materials: Acute Bronchitis (ED), COPD (Chronic Obstructive Pulmonary Disease) (ED), Bronchospasm (ED) Forms: *Work Release Referrals: Eufemia Alvarado MD [Primary Care Provider] - Additional Instructions: FOLLOW UP WITH YOUR DOCTOR. RETURN TO THE EMERGENCY DEPARTMENT FOR ANY WORSENING OF YOUR CONDITION OR QUESTIONS OR CONCERNS. - Billing Disposition and Condition Condition: STABLE Disposition: Home - Attestation Statements Document Initiated by Scribe: Yes Documenting Scribe: Mary Ayon Provider For Whom Alexa is Documenting (Include Credential): Edilson Barrios MD Scribe Attestation: Mary Petit scribed for Edilson Barrios MD on 02/13/18 at 1851. Scribe Documentation Reviewed: Yes Provider Attestation: The documentation as recorded by the scribe, Mary Roetzer accurately reflects the service I personally performed and the decisions made by me, Edilson Barrios MD
[2018-02-13 13:33] LABS: ABS Basophils 0 10^3/ul (0-0.2); ABS Eosinophils 0.1 10^3/ul (0-0.6); ABS Lymphocytes 1.4 10^3/ul (1.0-4.8); ABS Monocytes 0.2 10^3/ul (0-0.8); ABS Neutrophils 3.1 10^3/ul (1.5-7.7); ABS Nucleated RBC 0 10^3/ul; Eosinophil % 1.1 % (0-6); Hematocrit 44 % (35-47); Hemoglobin 14.9 g/dl (12.0-16.0); Lymphocyte % 28.4 % (25-47); Mean Corpuscular HGB Conc 34 g/dl (31-36); Mean Corpuscular Hemoglobin 36 pg (27-31); Mean Corpuscular Volume 106 fL (80-97); Mean Platelet Volume 7.8 um3 (7.4-10.4); Nucleated Red Blood Cells % 0.1; Platelet Count 272 10^3/ul (150-450); Red Blood Count 4.11 10^6/ul (4.00-5.40); Red Cell Distribution Width 16 % (10.5-15); White Blood Count 4.8 10^3/ul (3.5-10.8)
--- NOTE | 2018-02-13 13:35 | RAD ---
Indication: Cough and shortness of breath. History of tobacco use and asthma. Comparison: August 25, 2017 Technique: Upright AP 1315 hours Report: Elevated lung volumes and mild prominence of the interstitial markings. No focal pulmonary lesion, compelling alveolar consolidation, pleural effusion, pneumothorax. Upper normal heart size. Unremarkable central pulmonary vasculature and mediastinal contours. IMPRESSION: #. Stigmata of obstructive lung disease. No acute pulmonary or cardiac process evident.
[2018-02-13 13:44] LABS: INR 0.91 (0.77-1.02)
[2018-02-13 13:49] LABS: EGFR Non-African American 84.3 (>60)
[2018-02-13] MEDS ORDERED: Ondansetron INJ* 2 MG/ML VIAL ONE (14:00)
[2018-02-13] MEDS ORDERED: Ondansetron INJ* 2 MG/ML VIAL IV ONE (14:01)
[2018-02-13 14:05] LABS: Urine Appearance Cloudy; Urine Blood Negative (Negative); Urine Color Yellow; Urine Ketones Negative (Negative); Urine Protein Negative (Negative); Urine Specific Gravity 1.018 (1.010-1.030); Urine Urobilinogen Negative (Negative)
[2018-02-13] MEDS ORDERED: Albuterol HFA INHALER* 8 gm MDI INH ONE (18:19)
[2018-02-13 18:49] VITALS: BP 144/93
== END 2018-02-13 18:49 | disposition home or self-care (01) ==
LOC: ED 13:03
DX: J44.9 Chronic obstructive pulmonary disease, unspecified (principal); R60.0 Localized edema; Z88.0 Allergy status to penicillin; Z91.018 Allergy to other foods; F17.200 Nicotine dependence, unspecified, uncomplicated
CPT/HCPCS: 36415; 71045; 80053; 81003; 82550; 82553; 83605; 83690; 83735; 83880; 84484; 85025; 85610; 85730; 86140; 87040; 93005; 96365; 96375; 99283; A9270-GY; J0456; J0696; J2405; J2930

== ENCOUNTER 2018-04-03 16:10 | Inpatient (IN) | payer SELFPAY ==
[2018-04-03] MEDS ORDERED: Albuterol/Ipratropium NEB.SOL* Albuterol 2.5 MG/Ipratropium 0.5 MG 3 ML INH ONE (16:23)
[2018-04-03] MEDS ORDERED: NS 0.9% 1000 ML* 1,000 ML IV ONE (16:23)
[2018-04-03] MEDS ORDERED: Albuterol/Ipratropium NEB.SOL* Albuterol 2.5 MG/Ipratropium 0.5 MG 3 ML ONE (16:23)
[2018-04-03] MEDS ORDERED: methylPREDNISolone 125 MG* 2 ML VIAL IV ONE (16:24)
--- NOTE | 2018-04-03 16:29 | ED ---
Shortness of Breath - HPI Summary HPI Summary: Pt is a 42 y/o F BIBA to [facility] c/o sudden onset SOB. Notes right lower back pain and right scapular pain since 14:00 today, runny nose, chest pain, and irregular periods. Rates her pain a 7/10 in severity. Denies fever or sore throat. Pt does not use oxygen at home. PMHx of COPD and asthma. Multiple breathing treatments provided by EMS with some improvement. History of same in the past but never admitted for it. Continues to smoke heavily. - History of Current Complaint Chief Complaint: EDShortnessOfBreath Time Seen by Provider: 04/03/18 16:18 Hx Obtained From: Patient Onset/Duration: Sudden Onset, Lasting Minutes, Still Present Current Severity: Moderate - 7/10 Dyspnea At: Rest Associated Signs & Symptoms: Chest Pain Unrelated to Cough, Fever - NEGATIVE - Allergy/Home Medications Allergies/Adverse Reactions: Allergies Allergy/AdvReac Type Severity Reaction Status Date / Time Penicillins Allergy Hives Verified 01/04/18 15:00 raspberry Allergy Hives Verified 01/04/18 15:00 PMH/Surg Hx/FS Hx/Imm Hx Endocrine/Hematology History: Denies: Hx Anticoagulant Therapy Respiratory History: Reports: Hx Asthma, Hx Chronic Obstructive Pulmonary Disease (COPD) Sensory History: Denies: Hx Contacts or Glasses, Hx Eye Injury, Hx Hearing Aid Opthamlomology History: Denies: Hx Contacts or Glasses, Hx Eye Injury Psychiatric History: Reports: Hx Depression - Cancer History Hx Chemotherapy: No Hx Radiation Therapy: No - sister has uterine cancer Infectious Disease History: No Infectious Disease History: Denies: Traveled Outside the [place] in Last 30 Days - Family History Known Family History: Positive: Respiratory Disease - COPD, Other - Breast CA, COPD - Social History Alcohol Use: Daily Alcohol Amount: 2-3/day Substance Use Type: Reports: None Hx Tobacco Use: Yes Smoking Status (MU): Heavy Every Day Tobacco Smoker Review of Systems Negative: Fever Positive: Nasal Discharge. Negative: Sore Throat Positive: Chest Pain Positive: Shortness Of Breath Positive: other - irregular periods Positive: Other - right lower back pain, right scapular pain All Other Systems Reviewed And Are Negative: Yes Physical Exam - Summary Physical Exam Summary: Appearance: Well appearing, no pain distress Skin: warm, dry, reflects adequate perfusion Head/face: normal Eyes: EOMI, NAYANA ENT: mucous membranes tacky Neck: supple, non-tender Respiratory: wheeze left base, wheeze diffuse with right side, breath sounds present Cardiovascular: tachycardic, pulses symmetrical Abdomen: non-tender, soft Bowel Sounds: present Musculoskeletal: normal, strength/ROM intact Neuro: normal, sensory motor intact, A&Ox3 Triage Information Reviewed: Yes Vital Signs On Initial Exam: Initial Vitals Temp Pulse Resp BP Pulse Ox 99.2 F 96 22 151/101 93 04/03/18 16:14 04/03/18 16:14 04/03/18 16:14 04/03/18 16:14 04/03/18 16:14 Vital Signs Reviewed: Yes Diagnostics - Vital Signs Vital Signs Temp Pulse Resp BP Pulse Ox 04/03/18 16:14 99.2 F 96 22 151/101 93 - Laboratory Result Diagrams: 04/03/18 16:35 04/03/18 16:35 Lab Statement: Any lab studies that have been ordered have been reviewed, and results considered in the medical decision making process. - Radiology CXR Radiology Interpretation Completed By: ED Physician - COPD with hyperinflation. No infiltrate. - EKG 1621 Cardiac Rate: NL - 91 bpm EKG Rhythm: Sinus Rhythm EKG Interpretation: normal axis, borderline prolonged QT interval, normal ST Course/Dx - Course Course Of Treatment: Patient with history of COPD and asthma since childhood. She continues to smoke heavily. She presents with diffuse wheezing and hypoxia. She requires oxygen. 2 additional breathing treatments along with IV fluids, magnesium and IV steroids are provided here. The patient remains hypoxic off oxygen. She will require admission. Discussed the case with the hospitalist who will admit. - Diagnoses Differential Diagnosis/HQI/PQRI: Positive: Asthma, Bronchitis, COPD Exacerbation , Pneumonia, Pneumothorax Provider Diagnoses: COPD exacerbation, Hypoxia - Physician Notifications Discussed Care of Patient With: Bj Castaneda Time Discussed With Above Provider: 17:24 Instructed by Provider To: Other - Accepts pt for admission. - Critical Care Time Critical Care Time: 30-74 min - Critical care time is exclusive of separately billable procedures Discharge - Sign-Out/Discharge Documenting (check all that apply): Patient Departure - Admit - Discharge Plan Condition: Fair Disposition: ADMITTED TO [facility] Referrals: Eufemia Alvarado MD [Medical Doctor] - - Billing Disposition and Condition Condition: FAIR Disposition: Admitted to [facility] - Attestation Statements Document Initiated by Alexa: Yes Documenting Scribe: Nacho Van Provider For Whom Alexa is Documenting (Include Credential): Dr Berumen Scribe Attestation: INacho, scribed for Dr Berumen on 04/03/18 at 1759. Scribe Documentation Reviewed: Yes Provider Attestation: The documentation as recorded by the mileibdayana, Nacho Van accurately reflects the service I personally performed and the decisions made by me, Dr Berumen
[2018-04-03] MEDS ORDERED: Ondansetron INJ* 2 MG/ML VIAL ONE (16:51)
[2018-04-03] MEDS ORDERED: Ondansetron INJ* 2 MG/ML VIAL IV ONE (16:52)
[2018-04-03 16:58] LABS: ABS Basophils 0 10^3/ul (0-0.2); ABS Eosinophils 0.1 10^3/ul (0-0.6); ABS Lymphocytes 1.4 10^3/ul (1.0-4.8); ABS Monocytes 0.2 10^3/ul (0-0.8); ABS Neutrophils 2.4 10^3/ul (1.5-7.7); ABS Nucleated RBC 0 10^3/ul; Eosinophil % 1.6 % (0-6); Hematocrit 45 % (35-47); Hemoglobin 15.3 g/dl (12.0-16.0); Lymphocyte % 34.2 % (25-47); Mean Corpuscular HGB Conc 34 g/dl (31-36); Mean Corpuscular Hemoglobin 38 pg (27-31); Mean Corpuscular Volume 110 fL (80-97); Nucleated Red Blood Cells % 0.2; Platelet Count 225 10^3/ul (150-450); Red Blood Count 4.06 10^6/ul (4.00-5.40); Red Cell Distribution Width 18 % (10.5-15); White Blood Count 4.2 10^3/ul (3.5-10.8)
[2018-04-03 17:12] LABS: EGFR Non-African American 84.3 (>60)
[2018-04-03] MEDS ORDERED: Azithromycin IV(*) 500 MG in NS 0.9% 250 ML* 250 ML IVPB ONE (17:21)
--- NOTE | 2018-04-03 18:05 | RAD ---
HISTORY: COPD exac COMPARISONS: February 13, 2018 VIEWS: 4: Frontal dual-energy and lateral views of the chest. The right costophrenic angle is cut off. FINDINGS: CARDIOMEDIASTINAL SILHOUETTE: The cardiomediastinal silhouette is normal. CHIO: The chio are normal. PLEURA: The costophrenic angles are sharp. No pleural abnormalities are noted. LUNG PARENCHYMA: There is hyperinflation with flattening of the diaphragm and expansion of the AP diameter of the chest. ABDOMEN: The upper abdomen is clear. There is no subphrenic gas. BONES AND SOFT TISSUES: No bone or soft tissue abnormalities are noted. OTHER: None. IMPRESSION: NO ACTIVE CARDIOPULMONARY DISEASE.
[2018-04-03] MEDS ORDERED: Albuterol/Ipratropium NEB.SOL* Albuterol 2.5 MG/Ipratropium 0.5 MG 3 ML INH PRN (18:07)
[2018-04-03] MEDS ORDERED: Mouth Piece, Nicotine* 1 EACH CARTRIDGE INH PRN (18:14)
[2018-04-03] MEDS ORDERED: Iohexol 350* (CONTRAST) 500 ML MDV IV ONE (18:35)
[2018-04-03] MEDS ORDERED: NS 0.9% 1000 ML* 1,000 ML IV SCH (20:00)
--- NOTE | 2018-04-03 20:17 | RAD ---
EXAM: CT Angiography Chest With Intravenous Contrast EXAM DATE/TIME: 04/03/2018 7:33 PM CLINICAL HISTORY: 42 years old, female; Signs and symptoms; Dyspnea and shortness of breath; Additional info: SOB, r/ope TECHNIQUE: Axial computed tomographic angiography images of the chest with intravenous contrast using CT angiography protocol. All CT scans at this facility use at least one of these dose optimization techniques: automated exposure control; mA and/or kV adjustment per patient size (includes targeted exams where dose is matched to clinical indication); or iterative reconstruction. Coronal and sagittal reformatted images were created and reviewed. MIP and 3D reconstructed images were created and reviewed. CONTRAST: 74 ml of OMNIPAQUE 350 administered intravenously. COMPARISON: OT CXR PORTAP CHEST AP PORTABLE 02/13/2018 1:13 PM FINDINGS: Pulmonary arteries: The main pulmonary artery measures 25 mm. No pulmonary embolism is identified. Aorta: The ascending thoracic aorta measures 30 mm. Lungs: Minimal triangular density in the anterior right middle lobe measuring 3 mm. Pleural space: Normal. No pneumothorax. No pleural effusion. Heart: Normal. No cardiomegaly. No pericardial effusion. Bones/joints: Unremarkable. No acute fracture. Soft tissues: Unremarkable. Lymph nodes: Unremarkable. No enlarged lymph nodes. Gallbladder and bile ducts: Status post cholecystectomy. IMPRESSION: 1. 3 mm triangular density in the anterior right middle lobe. For low-risk patients, no follow-up is necessary. For high-risk patients (smoking history or other known risk factors) an optional chest CT at 12 months could be performed. 2. Status post cholecystectomy. 3. Otherwise negative CTA chest. No pulmonary embolism is identified. To contact [facility] with a general question: [facility] - [phone] For direct physician to physician contact: Physician Hotline - [phone] [facility] ([facility] Facility ID #[id number])
[2018-04-03] MEDS: Acetaminophen TAB* 325 MG PO PRN (21:49)
--- NOTE | 2018-04-03 21:55 | HP ---
HOSPITAL MEDICINE HISTORY AND PHYSICAL: DATE OF ADMISSION: 04/03/18 PRIMARY CARE PHYSICIAN: None. ATTENDING PHYSICIAN: Dr. Ron Smith * (dictation provided by Lashawn Denton NP) . CHIEF COMPLAINT: Shortness of breath. HISTORY OF PRESENT ILLNESS: Ms. Newberry is a 42-year-old female with a past medical history of asthma, tobacco use, and likely COPD, who presented to the hospital with concern for shortness of breath. Ms. Newberry states that she was in her normal state of health until this morning. When she awoke, she was suddenly very short of breath. She describes greenish sputum production and increased coughing. She has had a runny nose. She ultimately called EMS. On arrival of the EMS, they found her to be wheezing, but she responded well to 2 L nasal canula and nebulizer treatments. She denies chest pain. She reports daily nausea with vomiting, but that has been going on for couple of months without any clear pattern. She is able to tolerate oral intake. She denies any abdominal pain. She has not had any significant diarrhea. In the emergency room, Ms. Newberry had chest x-ray which showed no acute intrathoracic process. She had EKG which showed normal sinus rhythm. She had labs, which showed no leukocytosis and normal creatinine. PAST MEDICAL HISTORY: 1. Asthma. 2. Depression. 3. History of cholecystectomy. MEDICATIONS: Albuterol p.r.n. only. ALLERGIES: PENICILLIN and RASPBERRY. FAMILY HISTORY: The patient reports that her mother related to breast cancer in her 30s and she believes that her dad is still alive. SOCIAL HISTORY: The patient is a continued pack a day smoker. She reports that she drinks alcohol lightly, but she has no history, per her report, of any alcohol withdrawal symptoms at any time. She denies any drug use. She states that her domestic female partner would be her healthcare proxy. REVIEW OF SYSTEMS: A 14-point review of systems was completed with Ms. Newberry and all those not mentioned above were negative. PHYSICAL EXAMINATION GENERAL: Ms. Newberry is lying in the bed. She is in no acute distress. She is alert and oriented x3. She moves extremities equally. There is no facial asymmetry or focal weakness. VITAL SIGNS: Temperature 99.2, pulse rate 96, respiratory rate 22, O2 saturation 93% on 2 L nasal cannula, and blood pressure 161/101. HEENT: Extraocular movements are intact. LUNGS: Clear to auscultation at this point. There is good aeration. HEART: S1, S2. No murmur, rub or gallop and regular. ABDOMEN: Soft, nontender with bowel sounds positive x4. EXTREMITIES: No cyanosis or edema. SKIN: Intact. DIAGNOSTIC STUDIES/LAB DATA: WBC 4.2, hemoglobin 15.3, hematocrit 45, platelet count 225. D-dimer 431, pH 7.39, pCO2 of 39, pO2 of 69. Base excess negative 2.2. Bicarb 23.1. Sodium 136, potassium 3.8, chloride 100, serum bicarbonate 24, BUN 6, creatinine 0.76, glucose 112. Chest x-ray again shows no cardiothoracic process. EKG shows sinus rhythm with no evidence of ischemia. ASSESSMENT AND PLAN: Ms. Newberry is a 42-year-old female with a past medical history of asthma, continued smoking, and likely chronic obstructive pulmonary disease, who presented to the hospital with concern for acute onset of shortness of breath this morning when she awoke. Our plans are for observation in the hospital for the followin. Acute shortness of breath: With acute hypoxic respiratory failure, the patient has asthma, is a continued smoker and likely has chronic obstructive pulmonary disease. She was noted to be wheezing on checkup via EMS, but since receiving treatment she now seems much more clear at the moment. I suspect highly that this is secondary to a chronic obstructive pulmonary disease exacerbation and we will continue treatment with prednisone 60 mg tomorrow morning and this can be tapered depending on clinical course. We will also continue with DuoNeb nebulizing treatment. I see no indication that she has pneumonia and will not start antibiotics at this time. I did check a D-dimer and because of the fact that it is elevated and also because of the fact that the patient's ABG shows a normal pCO2, but a quite low pO2, I am concerned enough that there could be a pulmonary embolism that we will check a CTA chest. 2. Nicotine use: The patient was counseled about smoking cessation, nicotine replacement therapy will be available. 3. Maternal history of breast cancer: I have recommended strongly to the patient that she follow up with primary care physician. I have offered the services over at [facility] for ordering of mammogram in addition to a followup and treatment of her underlying chronic obstructive pulmonary disease. 4. Code status is full code. TIME SPENT: Approximately 60 minutes were spent on the admission of this patient, more than half of that time was spent with the patient at the bedside reviewing the events leading up to this hospitalization, performing the physical examination, and reviewing my plan of care. LASHAWN DENTON NP [id number]/CPS #: [id number] SABRINA
[2018-04-03] MEDS: Nicotine Inhaler* 10 MG AMP INH PRN (21:58)
[2018-04-03] MEDS: Nicotine PATCH 21 MG/24 HR* PATCH TRANSDERM SCH (21:58)
[2018-04-03] MEDS: Ondansetron INJ* 2 MG/ML VIAL IV PRN (22:46)
[2018-04-04] MEDS ORDERED: predniSONE TAB* 20 MG PO ONE (07:00)
--- NOTE | 2018-04-04 08:52 | PN ---
Subjective Date of Service: 04/04/18 Interval History: patient reports she feels better today stating she is less SOB - but continues to have SOB with exertion. Reports occasional cough. little sputum production. Denies fever or chills. She reports that she developed diarrhea and nausea and vomiting starting in January. She reports 5-10 loose green stools a day - at times they are explosive. She reports vomiting 1-3 times everyday as well. She reports these symptoms started at the same time. She denies abdominal pain or cramping. She is not sure if her symptoms are linked to eating or not. Denies blood in her stool. She has not been evaluated for this and does not have a PCP. Objective Active Medications: Acetaminophen (Tylenol Tab*) 650 mg PO Q6H PRN PRN Reason: pain/fever Last Admin: 04/03/18 21:49 Dose: 650 mg Albuterol/Ipratropium (Duoneb (Albuterol 2.5 Mg/Ipratropium 0.5 Mg)) 1 neb INH Q4H PRN PRN Reason: SOB/WHEEZING Device (Nicotine Mouth Piece*) 1 each INH .USE WITH NICOTROL PRN PRN Reason: CRAVING Last Admin: 04/03/18 21:57 Dose: 1 each Influenza Virus Vaccine (Fluarix *Quad* 2017-*) 0.5 ml IM .ONCE ONE Stop: 04/04/18 09:01 Nicotine (Nicotine Inhaler*) 10 mg INH Q2H PRN PRN Reason: CRAVING Last Admin: 04/03/18 21:58 Dose: 10 mg Nicotine (Nicotine Patch 21 Mg/24 Hr*) 1 patch TRANSDERM DAILY [facility] Last Admin: 04/03/18 21:58 Dose: Not Given Nicotine Polacrilex (Nicotine Gum*) 2 mg PO Q2H PRN PRN Reason: CRAVING Ondansetron HCl (Zofran Inj*) 4 mg IV Q6H PRN PRN Reason: NAUSEA Last Admin: 04/03/18 22:46 Dose: 4 mg Pharmacy Profile Note (Nicotine Patch Removal Note*) 1 note FOLLOW UP 1800 [facility] Vital Signs - 8 hr 04/04/18 03:13 Temperature 98.3 F Pulse Rate 75 Respiratory 16 Rate Blood Pressure 124/60 (mmHg) O2 Sat by Pulse 96 Oximetry Oxygen Devices in Use Now: Nasal Cannula Appearance: 42 yo female A+O x3 in NAD Eyes: No Scleral Icterus, PERRLA Ears/Nose/Mouth/Throat: NL Teeth, Lips, Gums, Mucous Membranes Moist Respiratory: Symmetrical Chest Expansion and Respiratory Effort, Clear to Auscultation Cardiovascular: NL Sounds; No Murmurs; No JVD, RRR, No Edema Abdominal: NL Sounds; No Tenderness; No Distention, - - obese Extremities: No Edema, No Clubbing, Cyanosis Skin: No Nodules or Sclerosis Neurological: Alert and Oriented x 3, NL Sensation, NL Muscle Strength and Tone Lines/Tubes/Other Access: Clean, Dry and Intact Peripheral IV Nutrition: Taking PO's Result Diagrams: 04/04/18 08:46 04/04/18 08:46 Assess/Plan/Problems-Billing Assessment: 42 yo female with a PMH of asthma, long-term tobacco abuse, depression who presented to the emergency department on 04/03/18 with c/o SOB, sputum production and cough. After admission she also reported to the nursing staff 1 month of N/V/D. - Patient Problems (1) Acute respiratory failure with hypoxia Comment: - resolved - Suspect viral illness with reactive airway disease secondary to asthma, long- term tobacco abuse - CTA - no evidence of PE or PNA - continue prednisone 40 mg po daily - continue nebulizers - smoking cessation - referral to pulm at discharge (2) Nausea vomiting and diarrhea Comment: - unlcear etiology - no abdominal pain - send u/a & cs, stool cx with cdiff pcr - zofran prn (3) Electrolyte abnormality Comment: - replace mg+ (4) DVT prophylaxis (5) Full code status Status and Disposition: OBV. patient continues to require oxygen - possible DC home tomorrow.
[2018-04-04 09:09] LABS: ABS Basophils 0 10^3/ul (0-0.2); ABS Eosinophils 0 10^3/ul (0-0.6); ABS Lymphocytes 0.3 10^3/ul (1.0-4.8); ABS Monocytes 0.1 10^3/ul (0-0.8); ABS Neutrophils 5.7 10^3/ul (1.5-7.7); ABS Nucleated RBC 0 10^3/ul; Eosinophil % 0 % (0-6); Hematocrit 40 % (35-47); Hemoglobin 13.4 g/dl (12.0-16.0); Lymphocyte % 5.3 % (25-47); Mean Corpuscular HGB Conc 34 g/dl (31-36); Mean Corpuscular Hemoglobin 37 pg (27-31); Mean Corpuscular Volume 109 fL (80-97); Mean Platelet Volume 8.1 um3 (7.4-10.4); Nucleated Red Blood Cells % 0.1; Platelet Count 227 10^3/ul (150-450); Red Blood Count 3.67 10^6/ul (4.00-5.40); Red Cell Distribution Width 18 % (10.5-15); White Blood Count 6.1 10^3/ul (3.5-10.8)
[2018-04-04] MEDS: Nicotine PATCH 21 MG/24 HR* PATCH TRANSDERM SCH (09:20)
[2018-04-04] MEDS: Nicotine GUM* 2 MG PO PRN (09:20)
[2018-04-04 09:26] LABS: EGFR Non-African American 80.6 (>60)
[2018-04-04] MEDS ORDERED: Magnesium Sulfate 2 GM IV* 2 GM/50 ML BAG IVPB ONE (11:00)
[2018-04-04] MEDS: Ondansetron INJ* 2 MG/ML VIAL IV PRN ×2 (11:31→21:26)
[2018-04-04 12:15] LABS: Urine Appearance Clear; Urine Blood Negative (Negative); Urine Color Straw; Urine Ketones Negative (Negative); Urine Protein Negative (Negative); Urine Specific Gravity 1.006 (1.010-1.030); Urine Urobilinogen Negative (Negative)
[2018-04-04] MEDS: Nicotine Inhaler* 10 MG AMP INH PRN (16:09)
[2018-04-04] MEDS: Nicotine Patch Removal NOTE FOLLOW UP SCH (17:36)
[2018-04-04] MEDS: Lactobacillus Acidophilus* 1 TAB PO SCH (21:25)
[2018-04-05] MEDS: Nicotine Inhaler* 10 MG AMP INH PRN (03:34)
[2018-04-05] MEDS ORDERED: hydrALAZINE IV* 20 MG/ML VIAL IV SLOW PU PRN (04:08)
[2018-04-05 06:45] LABS: EGFR Non-African American 89.7 (>60)
[2018-04-05] MEDS: predniSONE TAB* 20 MG PO SCH (08:24)
[2018-04-05] MEDS: Lactobacillus Acidophilus* 1 TAB PO SCH ×2 (08:24→20:05)
[2018-04-05] MEDS: Nicotine PATCH 21 MG/24 HR* PATCH TRANSDERM SCH (08:25)
[2018-04-05] MEDS ORDERED: amLODIPine TAB* 5 MG PO ONE (09:42)
[2018-04-05] MEDS: Nicotine GUM* 2 MG PO PRN ×2 (10:07→23:54)
--- NOTE | 2018-04-05 13:31 | PN ---
Subjective Date of Service: 04/05/18 Interval History: Patient reports she woke up in the night SOB and required oxygen. She continues to have wheezing. Reports little sputum production. Denies fever and chills. Reports no further diarrhea since starting the probiotic yesterday. Denies abdominal pain. Objective Active Medications: Acetaminophen (Tylenol Tab*) 650 mg PO Q6H PRN PRN Reason: pain/fever Last Admin: 04/03/18 21:49 Dose: 650 mg Albuterol/Ipratropium (Duoneb (Albuterol 2.5 Mg/Ipratropium 0.5 Mg)) 1 neb INH Q4H PRN PRN Reason: SOB/WHEEZING Device (Nicotine Mouth Piece*) 1 each INH .USE WITH NICOTROL PRN PRN Reason: CRAVING Last Admin: 04/03/18 21:57 Dose: 1 each Hydralazine HCl (Apresoline Iv*) 5 mg IV SLOW PU Q6H PRN PRN Reason: HIGH BP, SEE COMMENTS Last Admin: 04/05/18 04:25 Dose: 5 mg Lactobacillus Rhamnosus (Lactobacillus Acidophilus*) 1 tab PO BID [facility] Last Admin: 04/05/18 08:24 Dose: 1 tab Nicotine (Nicotine Inhaler*) 10 mg INH Q2H PRN PRN Reason: CRAVING Last Admin: 04/05/18 03:34 Dose: 10 mg Nicotine (Nicotine Patch 21 Mg/24 Hr*) 1 patch TRANSDERM DAILY [facility] Last Admin: 04/05/18 08:25 Dose: Not Given Nicotine Polacrilex (Nicotine Gum*) 2 mg PO Q2H PRN PRN Reason: CRAVING Last Admin: 04/05/18 10:07 Dose: 2 mg Ondansetron HCl (Zofran Inj*) 4 mg IV Q6H PRN PRN Reason: NAUSEA Last Admin: 04/04/18 21:26 Dose: 4 mg Pharmacy Profile Note (Nicotine Patch Removal Note*) 1 note FOLLOW UP 1800 [facility] Last Admin: 04/04/18 17:36 Dose: Not Given Prednisone (Deltasone Tab*) 40 mg PO DAILY [facility] Last Admin: 04/05/18 08:24 Dose: 40 mg Vital Signs - 8 hr 04/05/18 04/05/18 04/05/18 05:41 07:32 08:28 Temperature 98.9 F Pulse Rate 80 82 Respiratory 18 18 Rate Blood Pressure 151/92 174/101 (mmHg) O2 Sat by Pulse 95 95 Oximetry 04/05/18 11:11 Temperature 98.7 F Pulse Rate 77 Respiratory 18 Rate Blood Pressure 157/89 (mmHg) O2 Sat by Pulse 91 Oximetry Oxygen Devices in Use Now: None Appearance: 42 yo unkempt female A+O x3 in NAD Eyes: No Scleral Icterus, PERRLA Ears/Nose/Mouth/Throat: NL Teeth, Lips, Gums, Mucous Membranes Moist Respiratory: Symmetrical Chest Expansion and Respiratory Effort, Clear to Palpation - upper b/l exp wheezing (mild) Cardiovascular: NL Sounds; No Murmurs; No JVD, RRR, No Edema Lymphatic: No Cervical Adenopathy Extremities: No Edema, No Clubbing, Cyanosis Skin: No Rash or Ulcers, No Nodules or Sclerosis Neurological: Alert and Oriented x 3, NL Sensation, NL Gait, NL Muscle Strength and Tone Lines/Tubes/Other Access: Clean, Dry and Intact Peripheral IV Nutrition: Taking PO's Result Diagrams: 04/04/18 08:46 04/05/18 06:03 Microbiology and Other Data: Microbiology 04/04/18 09:16 Stool Gross Appearance - Final Stool Shiga Toxin I & II - Final Negative Shiga Toxin 1 & 2 C. difficile DNA Amplification - Final 027 Presumptive NEGATIVE Toxigenic C.diff NEGATIVE Assess/Plan/Problems-Billing Assessment: 42 yo female with a PMH of asthma, long-term tobacco abuse, depression who presented to the emergency department on 04/03/18 with c/o SOB, sputum production and cough. After admission she also reported to the nursing staff 1 month of N/V/D. - Patient Problems (1) Acute respiratory failure with hypoxia Comment: - resolved. - Suspect viral illness with reactive airway disease secondary to asthma, long- term tobacco abuse - CTA - no evidence of PE or PNA - continue prednisone 40 mg po daily - continue nebulizers - smoking cessation - Ambulate patient off oxygen and check o2 status - referral to pulm at discharge (2) Nausea vomiting and diarrhea Comment: - reports resolved after probiotic initiated - unlcear etiology - no abdominal pain - u/a unremarkable, stool cx pending, cdiff pcr negative - will refer to GI as outpatient (3) Electrolyte abnormality Comment: - replace mg+ (4) DVT prophylaxis Comment: SCDs (5) Full code status Status and Disposition: OBV. patient continues to require oxygen - possible DC home tomorrow. No health insurance or PCP - social work following. Plan to [facility] with [facility] at discharge
[2018-04-05] MEDS: Albuterol/Ipratropium NEB.SOL* Albuterol 2.5 MG/Ipratropium 0.5 MG 3 ML INH SCH ×3 (14:57→23:27)
[2018-04-05] MEDS: Acetaminophen TAB* 325 MG PO PRN (16:25)
[2018-04-05] MEDS: Nicotine Patch Removal NOTE FOLLOW UP SCH (16:32)
[2018-04-06] MEDS: Albuterol/Ipratropium NEB.SOL* Albuterol 2.5 MG/Ipratropium 0.5 MG 3 ML INH SCH ×3 (03:20→11:10)
[2018-04-06 06:58] LABS: ABS Basophils 0 10^3/ul (0-0.2); ABS Eosinophils 0 10^3/ul (0-0.6); ABS Lymphocytes 2.1 10^3/ul (1.0-4.8); ABS Monocytes 0.3 10^3/ul (0-0.8); ABS Neutrophils 3.7 10^3/ul (1.5-7.7); ABS Nucleated RBC 0 10^3/ul; Eosinophil % 0.3 % (0-6); Hematocrit 37 % (35-47); Hemoglobin 12.4 g/dl (12.0-16.0); Lymphocyte % 34.1 % (25-47); Mean Corpuscular HGB Conc 34 g/dl (31-36); Mean Corpuscular Hemoglobin 37 pg (27-31); Mean Corpuscular Volume 110 fL (80-97); Nucleated Red Blood Cells % 0.1; Platelet Count 177 10^3/ul (150-450); Red Blood Count 3.38 10^6/ul (4.00-5.40); Red Cell Distribution Width 18 % (10.5-15); White Blood Count 6.2 10^3/ul (3.5-10.8)
[2018-04-06 07:02] LABS: EGFR Non-African American 94.2 (>60)
[2018-04-06] MEDS: predniSONE TAB* 20 MG PO SCH (09:54)
[2018-04-06] MEDS: Lactobacillus Acidophilus* 1 TAB PO SCH (09:54)
[2018-04-06] MEDS: Nicotine GUM* 2 MG PO PRN (09:58)
[2018-04-06] MEDS: Nicotine PATCH 21 MG/24 HR* PATCH TRANSDERM SCH (10:09)
[2018-04-06] MEDS ORDERED: Albuterol/Ipratropium NEB.SOL* Albuterol 2.5 MG/Ipratropium 0.5 MG 3 ML INH PRN (11:14)
--- NOTE | 2018-04-06 11:48 | DCNOTE ---
Subjective Date of Service: 04/06/18 Interval History: Patient reports she feels "much much better" She denies SOB, cough or sputum production. No wheezing. She denies any further diarrhea or vomiting since starting the probiotics. No abdominal pain. Discussed discharge plan and medications with patient. Objective Active Medications: Acetaminophen (Tylenol Tab*) 650 mg PO Q6H PRN PRN Reason: pain/fever Last Admin: 04/05/18 16:25 Dose: 650 mg Albuterol/Ipratropium (Duoneb (Albuterol 2.5 Mg/Ipratropium 0.5 Mg)) 1 neb INH Q2H PRN PRN Reason: SOB/WHEEZING Device (Nicotine Mouth Piece*) 1 each INH .USE WITH NICOTROL PRN PRN Reason: CRAVING Last Admin: 04/03/18 21:57 Dose: 1 each Hydralazine HCl (Apresoline Iv*) 5 mg IV SLOW PU Q6H PRN PRN Reason: HIGH BP, SEE COMMENTS Last Admin: 04/05/18 04:25 Dose: 5 mg Lactobacillus Rhamnosus (Lactobacillus Acidophilus*) 1 tab PO BID [facility] Last Admin: 04/06/18 09:54 Dose: 1 tab Nicotine (Nicotine Inhaler*) 10 mg INH Q2H PRN PRN Reason: CRAVING Last Admin: 04/05/18 03:34 Dose: 10 mg Nicotine (Nicotine Patch 21 Mg/24 Hr*) 1 patch TRANSDERM DAILY [facility] Last Admin: 04/06/18 10:09 Dose: Not Given Nicotine Polacrilex (Nicotine Gum*) 2 mg PO Q2H PRN PRN Reason: CRAVING Last Admin: 04/06/18 09:58 Dose: 2 mg Ondansetron HCl (Zofran Inj*) 4 mg IV Q6H PRN PRN Reason: NAUSEA Last Admin: 04/04/18 21:26 Dose: 4 mg Pharmacy Profile Note (Nicotine Patch Removal Note*) 1 note FOLLOW UP 1800 [facility] Last Admin: 04/05/18 16:32 Dose: Not Given Vital Signs - 8 hr 04/06/18 04/06/18 04/06/18 06:06 07:17 08:00 Temperature 97.9 F Pulse Rate 70 78 Respiratory 20 18 18 Rate Blood Pressure 131/84 (mmHg) O2 Sat by Pulse 99 94 Oximetry 04/06/18 11:10 Temperature Pulse Rate 78 Respiratory 18 Rate Blood Pressure (mmHg) O2 Sat by Pulse 99 Oximetry Oxygen Devices in Use Now: None Appearance: A+Ox3 in NAD. Eyes: No Scleral Icterus, PERRLA Ears/Nose/Mouth/Throat: NL Teeth, Lips, Gums, Mucous Membranes Moist Neck: NL Appearance and Movements; NL JVP Respiratory: Symmetrical Chest Expansion and Respiratory Effort, Clear to Auscultation Cardiovascular: NL Sounds; No Murmurs; No JVD, RRR, No Edema Abdominal: NL Sounds; No Tenderness; No Distention Extremities: No Edema, No Clubbing, Cyanosis Skin: No Rash or Ulcers, No Nodules or Sclerosis Neurological: Alert and Oriented x 3, NL Sensation, NL Muscle Strength and Tone Lines/Tubes/Other Access: Clean, Dry and Intact Peripheral IV Nutrition: Taking PO's Result Diagrams: 04/06/18 06:34 04/06/18 06:34 Microbiology and Other Data: Microbiology 04/04/18 09:16 Stool Gross Appearance - Final Stool Shiga Toxin I & II - Final Negative Shiga Toxin 1 & 2 C. difficile DNA Amplification - Final 027 Presumptive NEGATIVE Toxigenic C.diff NEGATIVE Assess/Plan/Problems-Billing Assessment: 42 yo female with a PMH of asthma, long-term tobacco abuse, depression who presented to the emergency department on 04/03/18 with c/o SOB, sputum production and cough. After admission she also reported to the nursing staff 1 month of N/V/D. - Patient Problems (1) Acute respiratory failure with hypoxia Comment: - resolved. - Suspect viral illness with reactive airway disease secondary to asthma, long- term tobacco abuse - CTA - no evidence of PE or PNA - continue prednisone 40 mg po daily - continue nebulizers - smoking cessation - Off supplemental O2 (2) Nausea vomiting and diarrhea Comment: - reports resolved after probiotic initiated?? also started on steoids?? unlcear etiology - no abdominal pain - u/a unremarkable, stool cx negative so far, cdiff pcr negative - will refer to GI as outpatient (3) Electrolyte abnormality Comment: - replace mg+ (4) DVT prophylaxis Comment: SCDs (5) Full code status Status and Disposition: OBV. DC to home today. Patient has no insurance, she has been set up with social work. Family med and [facility] have both stopped seeing the patient due to multiple no shows. This was discussed with the patient that it is strogly suggested she follow up with getting insurance established as she will require a PCP and should undergo routine cancer sceenings for her age, as well as she may require a colonoscopy d /y snf diarrhea. Pt states understanding and is currently being set up with appropriate services.
[2018-04-06 15:26] VITALS: BP 145/84
--- NOTE | 2018-04-07 04:07 | DS ---
CC: [facility] * DISCHARGE SUMMARY: DATE OF ADMISSION: 04/05/18 DATE OF DISCHARGE: 04/06/18 PROVIDER: Kamron Camacho NP ATTENDING PHYSICIAN: Dr. Sarah Kamara * (report dictated by Kamron Camacho NP) PRIMARY CARE PROVIDER: No PCP. Currently being referred to [facility]. DISCHARGE DIAGNOSES: 1. Acute hypoxic respiratory failure secondary to asthma/chronic obstructive pulmonary disease exacerbation. 2. Current tobacco abuse. 3. Diarrhea/vomiting x2 months. 4. Borderline hypertension. SECONDARY DIAGNOSIS: Depression. DISCHARGE MEDICATIONS: 1. Albuterol INH inhaler 2 puffs q.4 hours p.r.n. shortness of breath, wheezing. 2. Probiotic 1 to 2 capsules p.o. daily. ALLERGIES: PENICILLIN, RASPBERRY, SULFAMETHOXAZOLE TRIMETHOPRIM. HISTORY OF PRESENT ILLNESS AND HOSPITAL COURSE: Please see history and physical by Lashawn Denotn NP for full admission details; but in summary, this is a 42-year-old female with a past medical history of asthma, tobacco abuse, who presented to the emergency department with concern for shortness of breath. Ms. Newberry states that she was in a normal state of health until she woke up in the morning and was suddenly shortness of breath with reported greenish sputum production and increased coughing. She reports she had a runny nose. She ultimately called EMS and on arrival of the EMS, they found her to be wheezing and she responded well to 2 L nasal cannula and nebulizing treatments. She was brought to the emergency department for further evaluation. She was found to be hypoxic with O2 sats in the mid 80s. No noted leukocytosis on admission and she has remained afebrile throughout hospitalization. She underwent a chest thorax CTA for concern for pulmonary embolism, but this was negative CTA with no pulmonary embolism identified. There was, however, a 3 mm triangle density in the anterior right middle lobe in which she requires chest CT in 12 months for followup. Otherwise, the CAT scan was unremarkable. The patient was admitted to the hospitalist service medical unit. She was started on prednisone 40 mg p.o. daily. No antibiotics were given to the patient throughout her hospitalization. She was placed on nicotine supplementation. She is not interested in smoking cessation at this time; however, she reports that she will cut down. She was given smoking cessation. In regards to the patient's reported diarrhea and vomiting every day for the past 2 months, it is unclear of the etiology. She was noted to have a very loose stool which she did not make it to the bathroom on her first day of admission per the nursing staff reporting there was loose green stool on the floor. The patient denies any abdominal pain. She does report after eating, she tends to have a loose bowel movement, but there is no cramping or pain. She also states that her diarrhea is not linked to when she eats. She reports 5 to 10 stools a day. No bloody diarrhea reported. She also reports that she will have some nausea and will vomit or dry hive at least once a day. She denies gas, bloating, increased flatulence. She was started on a probiotic b.i.d. and per the patient's report, she has since had a resolution of her diarrhea, nausea, and vomiting. The only other medication that was receiving is the prednisone; however, this does not appear to be an inflammatory bowel disease due to she has absolutely no pain. She reports that she had normal formed bowel movements this morning for the first time in months. I have discussed with the patient that she should continue on the probiotic. The prednisone will be stopped at discharge. However, she does have a return of loose bowel movements. She will require further workup by can top setter. I did actually discussed with the patient that I think that regardless she should have a followup with the can top setter and most likely, she would require colonoscopy. The patient did have a C. diff PCR, which was negative and a stool culture, which was negative for Shiga toxin and the culture still pending at the time of dictation. It is possible she has a food allergy? She was encouraged to reduce her intake of dairy and gluten to see if this makes a difference. As well, the patient reports abnormal menstruation. This was only discovered and enquired about after she was noted to have an iron level that was high at 321 with the iron percent saturation of 97. She is noted to have an MCV of over a 100. Her B12 was normal. I did send a acid which is still pending at time of dictation. Thyroid panel and antibodies are negative and she has a normal folate. I will consider potential referral to Hematology for further workup. The patient will be discharged to home. She currently has no healthcare insurance and which she has been set up with the human services case manager and psychologist social to help her establish this. Both her primary care provider offices were contacted, which is Dr. Eufemia Alvarado's office at [facility] who discharged the patient due to no shows as well as [facility] discharged her due to no shows. I discussed with the patient that she should be established with a primary care provider as she has multiple health issues as well as preventative primary care that will need attention to. I also discussed with her she would benefit from a followup with Dr. Freire, sharepoint application developer; Gastroenterology for further evaluation of her diarrhea, possibly Hematology and it is concerning she has had abnormal period she reports most of her life; therefore, she may benefit from seeing Endocrinology. As well, I discussed with her, her normal routine cancer screening such as a pelvic exam with a Pap, breast exam, mammogram in which she has had none of. At this point, she agrees with the plan of care to become established. DISCHARGE PLAN: 1. The patient will discharged to home. 2. She will follow up with [facility] in which [facility] will call her with an appointment time and date. 3. She was instructed to return to the emergency department for further evaluation. 4. She was given an Rx prescription for free prescription of albuterol inhaler and was strongly encouraged to purchase probiotics for continued relief of her diarrhea, nausea, and vomiting; however, again the only medication she was started on was the steroids and did this make a difference? 5. The patient was instructed she had borderline hypertension today. Her systolic blood pressure is in the 120s. She was instructed that she will need to follow up with her blood pressure. 6. The patient is stable for discharge to home. TIME SPENT: Approximately 60 minutes were spent on this discharge. KAMRON CAMACHO NP [id number]/CPS #: [id number] SABRINA
== END 2018-04-06 15:30 | disposition home or self-care (01) | DRG 189 ==
LOC: ED 16:10 → MED 18:05 → OBSVTOIN 04-05 10:00
PROVIDERS: ADMIT Student in an Organized Health Care Education/Training Program; ATTEND Internal Medicine
DX: J96.01 Acute respiratory failure with hypoxia (principal); J44.1 Chronic obstructive pulmonary disease with (acute) exacerbation; F33.9 Major depressive disorder, recurrent, unspecified; F17.210 Nicotine dependence, cigarettes, uncomplicated; R19.7 Diarrhea, unspecified; R11.2 Nausea with vomiting, unspecified; R03.0 Elevated blood-pressure reading, without diagnosis of hypertension; Z88.0 Allergy status to penicillin; Z88.2 Allergy status to sulfonamides; Z88.8 Allergy status to other drugs, medicaments and biological substances; Z91.018 Allergy to other foods; Z79.899 Other long term (current) drug therapy; Z80.3 Family history of malignant neoplasm of breast
CPT/HCPCS: 36415; 71046; 71275; 80048; 80076; 81003; 82607; 82728; 82746; 82803; 83036; 83540; 83550; 83735; 83921; 84439; 84443; 84481; 84702; 85025; 85379; 86376; 86800; 87045; 87046; 87077; 87493; 87899; 90471; 90686; 93005; 94640; 99284; 99406; A9270-GY; G0008; J0360; J0456; J2405; J2930; J3475; J7512; Q9967

== ENCOUNTER → 2018-09-30 13:19 | Emergency (ER) | payer SELFPAY ==
[~2018-09-30 13:19] MED LIST: Ketorolac INJ* 30 MG/ML 1 ML VIAL IV PUSH ONE
--- NOTE | 2018-09-30 14:10 | ED ---
Abdominal Pain/Female - HPI Summary HPI Summary: A 42 y/o female presents to [facility] with chief complaint of left sided abdominal pain for the past three days. She claims that her pain started gradually and is worsened with cough or ambulating. She rates her pain an 8/10 in severity and notes that pain radiates to her back. She denies N/V/D or urinary symptoms. The patient has been eating and having bowel movements OK. She last ate one hour [employer]. She has a Hx of COPD and asthma. - History of Current Complaint Chief Complaint: EDAbdIfeanyiin Stated Complaint: ABD/FLANK PAIN PER PT Time Seen by Provider: 09/30/18 13:46 Hx Obtained From: Patient Onset/Duration: Gradual Onset, Lasting Days, Still Present Timing: Constant Severity Initially: Severe Severity Currently: Severe Pain Intensity: 8 Pain Scale Used: 0-10 Numeric Location: Other - left sided Radiates: Yes Radiates to: Back Character: Other: - unable to describe Aggravating Factor(s): Movement, Other: - cough Alleviating Factor(s): Nothing Associated Signs and Symptoms: Positive: Back Pain. Negative: Fever, Urinary Symptoms, Decreased Appetite, Nausea, Vomiting, Diarrhea Allergies/Adverse Reactions: Allergies Allergy/AdvReac Type Severity Reaction Status Date / Time Penicillins Allergy Hives Verified 09/30/18 13:43 raspberry Allergy Hives Verified 09/30/18 13:43 sulfamethoxazole Allergy Hives Verified 09/30/18 13:43 [From Bactrim] trimethoprim [From Bactrim] Allergy Hives Verified 09/30/18 13:43 PMH/Surg Hx/FS Hx/Imm Hx Endocrine/Hematology History: Denies: Hx Anticoagulant Therapy, Hx Diabetes Cardiovascular History: Denies: Hx Hypertension Respiratory History: Reports: Hx Asthma, Hx Chronic Obstructive Pulmonary Disease (COPD) GI History: Reports: Other GI Disorders - Liquid green stools 6-10x/day x 2months. Vomiting 3x/day x 4 wks History: Denies: Hx Renal Disease Sensory History: Denies: Hx Contacts or Glasses, Hx Eye Injury, Hx Hearing Aid Opthamlomology History: Denies: Hx Contacts or Glasses, Hx Eye Injury Psychiatric History: Reports: Hx Depression - Cancer History Hx Chemotherapy: No Hx Radiation Therapy: No - sister has uterine cancer Infectious Disease History: No Infectious Disease History: Denies: Traveled Outside the [place] in Last 30 Days - Family History Known Family History: Positive: Respiratory Disease - COPD, Other - Breast CA, COPD - Social History Alcohol Use: Daily Alcohol Amount: 2 beers daily Substance Use Type: Reports: None Hx Tobacco Use: Yes Smoking Status (MU): Heavy Every Day Tobacco Smoker Type: Cigarettes Length of Time of Smoking/Using Tobacco: 24 years Have You Smoked in the Last Year: Yes Review of Systems Negative: Fever Positive: Abdominal Pain. Negative: Vomiting, Diarrhea, Nausea Positive: no symptoms reported All Other Systems Reviewed And Are Negative: Yes Physical Exam - Summary Physical Exam Summary: Appearance: The patient is well-nourished in no acute distress and in no acute pain. Skin: The skin is warm and dry and skin color reflects adequate perfusion. HEENT: The head is normocephalic and atraumatic. The pupils are equal and reactive. The conjunctivae are clear and without drainage. Nares are patent and without drainage. Mouth reveals moist mucous membranes and the throat is without erythema and exudate. The external ears are intact. The ear canals are patent and without drainage. The tympanic membranes are intact. Neck: The neck is supple with full range of motion and non-tender. There are no carotid bruits. There is no neck vein distension. Respiratory: Chest is non-tender. Lungs are clear to auscultation and breath sounds are symmetrical and equal. Cardiovascular: Heart is regular rate and rhythm. There is no murmur or rub auscultated. There is no peripheral edema and pulses are symmetrical and equal. Abdomen: The abdomen is tender in left upper and lower quadrants. There are normal bowel sounds heard in all four quadrants and there is no organomegaly palpated. Musculoskeletal: There is no back tenderness noted. Extremities are non-tender with full range of motion. There is good capillary refill. There is no peripheral edema or calf tenderness elicited. Neurological: Patient is alert and oriented to person, place and time. The patient has symmetrical motor strength in all four extremities. Cranial nerves are grossly intact. Deep tendon reflexes are symmetrical and equal in all four extremities. Psychiatric: The patient has an appropriate affect and does not exhibit any anxiety or depression. Triage Information Reviewed: Yes Vital Signs On Initial Exam: Initial Vitals Temp Pulse Resp BP Pulse Ox 98.6 F 108 18 128/90 89 09/30/18 13:40 09/30/18 13:40 09/30/18 13:40 09/30/18 13:40 09/30/18 13:40 Vital Signs Reviewed: Yes Diagnostics - Vital Signs Vital Signs Temp Pulse Resp BP Pulse Ox 09/30/18 14:00 107 21 97 09/30/18 13:55 107 96 09/30/18 13:40 98.6 F 108 18 128/90 89 - Laboratory Result Diagrams: 09/30/18 14:30 09/30/18 14:30 Lab Statement: Any lab studies that have been ordered have been reviewed, and results considered in the medical decision making process. - CT abdomen/pelvis CT Interpretation Completed By: Radiologist Summary of CT Findings: No definite obstructive uropathy is noted. Right ovarian cyst measuring up to 3.4 cm. ED physician has reviewed this imaging report. Re-Evaluation - Re-Evaluation First Eval Re-Evaluation Time: 17:27 Change: Unchanged Comment: Discussed results. Abdominal Pain Fem Course/Dx - Course Course Of Treatment: Ms. Newberry presented complaining that she's been here in the hospital for 3 days as a visitor and she's had gradually increasing pain in her left abdomen. She denies any nausea vomiting. It is not exacerbated by eating but is exacerbated by moving around and touching it. She was nontoxic in appearance with stable vital signs but clearly was tender in the left side of her abdomen both upper and lower. Her workup here including labs, urinalysis and noncontrasted CT scan are all negative. I'm not sure the etiology of her pain and very well could be gastric and I recommended Prilosec for a couple of days and follow-up with [facility] as she has no PCP. Her pulse ox hovered low while she was here but she states she is not short of breath and that she has COPD and is normally low. We walked her around she maintained her pulse ox in the mid 90s without any discomfort. - Diagnoses Provider Diagnoses: Epigastric pain Discharge - Sign-Out/Discharge Documenting (check all that apply): Patient Departure - DC Patient Received Moderate/Deep Sedation with Procedure: No - Discharge Plan Condition: Stable Disposition: HOME Prescriptions: Omeprazole CAP (NF) [Prilosec CAP* 20 MG] 20 mg PO BID #20 cap. Patient Education Materials: Epigastric Pain (ED) Referrals: [facility] [Outside] (next week) Additional Instructions: Return to the ED if you experience any new or worsening symptoms. - Billing Disposition and Condition Condition: STABLE Disposition: Home - Attestation Statements Document Initiated by Alexa: Yes Documenting Scribe: Néstor Crandall Provider For Whom Alexa is Documenting (Include Credential): Javier Amador MD Scribe Attestation: INéstor, scribed for Javier Amador MD on 09/30/18 at 1845. Scribe Documentation Reviewed: Yes Provider Attestation: The documentation as recorded by the Néstor argueta accurately reflects the service I personally performed and the decisions made by me, Javier Amador MD Status of Scribe Document: Viewed
[2018-09-30 14:41] LABS: ABS Basophils 0 10^3/ul (0-0.2); ABS Eosinophils 0.7 10^3/ul (0-0.6); ABS Lymphocytes 1.2 10^3/ul (1.0-4.8); ABS Monocytes 0.5 10^3/ul (0-0.8); ABS Neutrophils 4.9 10^3/ul (1.5-7.7); ABS Nucleated RBC 0 10^3/ul; Eosinophil % 9.3 %; Hematocrit 39 % (33-41); Hemoglobin 13.3 g/dL (12.0-16.0); Lymphocyte % 16.3 %; Mean Corpuscular HGB Conc 34 g/dL (31-36); Mean Corpuscular Hemoglobin 35 pg (27-31); Mean Corpuscular Volume 104 fL (80-97); Mean Platelet Volume 7.6 fL (7.4-10.4); Nucleated Red Blood Cells % 0; Platelet Count 318 10^3/uL (150-450); Red Blood Count 3.79 10^6 /uL (3.70-4.87); Red Cell Distribution Width 14 % (10.5-15); White Blood Count 7.3 10^3/uL (3.5-10.8)
[2018-09-30 15:05] LABS: HCG Pregnancy < 0.60 mIU/mL
[2018-09-30 15:06] LABS: ALT 11 U/L (7-52); AST 19 U/L (13-39); Albumin 3.6 g/dL (3.2-5.2); Alkaline Phosphatase 143 U/L (34-104); Anion Gap 6 mmol/L (2-11); BUN/Creatinine Ratio 13.8 (8-20); Blood Urea Nitrogen 8 mg/dL (6-24); CO2 Carbon Dioxide 26 mmol/L (22-32); Calcium 8.7 mg/dL (8.6-10.3); Chloride 104 mmol/L (101-111); EGFR African American 139.3 (>60); EGFR Non-African American 115.1 (>60); Globulin 3.7 g/dL (2-4); Glucose 90 mg/dL (70-100); Potassium 4.4 mmol/L (3.5-5.0); Sodium 136 mmol/L (135-145); Total Protein 7.3 g/dL (6.4-8.9)
[2018-09-30 18:15] LABS: Urine Appearance Cloudy; Urine Bacteria Absent (Absent); Urine Bilirubin Negative (Negative); Urine Blood 1+ (Negative); Urine Color Yellow; Urine Glucose Negative (Negative); Urine Ketones Negative (Negative); Urine Nitrite Negative (Negative); Urine Protein Negative (Negative); Urine Red Blood Cell Trace(0-2/hpf) (Absent); Urine Specific Gravity 1.015 (1.010-1.030); Urine Squamous Epithelial Cell Present (Absent); Urine Urobilinogen Negative (Negative); Urine White Blood Cell Trace(0-5/hpf) (Absent)
[2018-09-30 18:49] VITALS: BP 128/72
== END | disposition home or self-care (01) ==
LOC: ED 13:19
DX: R10.13 Epigastric pain (principal); J44.9 Chronic obstructive pulmonary disease, unspecified; Z88.0 Allergy status to penicillin; Z88.2 Allergy status to sulfonamides; Z88.8 Allergy status to other drugs, medicaments and biological substances
CPT/HCPCS: 36415; 74176; 80053; 81003; 81015; 83605; 83690; 84702; 85025; 86140; 87086; 96374; 99283; J1885

== ENCOUNTER 2019-08-06 10:13 | Emergency (ER) | payer SELFPAY ==
[2019-08-06] MEDS ORDERED: Albuterol/Ipratropium NEB.SOL* Albuterol 2.5 MG/Ipratropium 0.5 MG 3 ML INH ONE (10:33)
--- NOTE | 2019-08-06 10:36 | ED ---
Influenza-Like Illness - HPI Summary HPI Summary: Patient is a 43 y/o F w/ Hx of CHF, COPD, and asthma who presents to [facility] with complaints of body aches, HARRIS, ear ache, non-productive cough, and chills for the past few days. She has not checked her temperature but notes that she has been diaphoretic. Patient notes that her was recently diagnosed with influenza. She has some chest pain but attributes this to coughing. Patient states that she does not experience a burning sensation at her chest when coughing. She notes that she occasionally becomes SOB when coughing and also reports some wheezing. No N/V or abdominal pain reported but the patient does note some diarrhea. No Hx of MN, HTN, or diabetes reported. Home medications and allergies are reviewed. Home Medications Medication Instructions Recorded Confirmed Type Omeprazole CAP (NF) [Prilosec CAP* 20 mg PO BID #20 cap. 09/30/18 Rx 20 MG] - History of Current Complaint Chief Complaint: EDFluSymptoms Time Seen by Provider: 08/06/19 10:27 Hx Obtained From: Patient Onset/Duration: Lasting Days, Still Present Severity: Severe Associated Signs & Symptoms: Myalgia, Cough, Headache - Allergy/Home Medications Allergies/Adverse Reactions: Allergies Allergy/AdvReac Type Severity Reaction Status Date / Time Penicillins Allergy Hives Verified 08/06/19 10:18 raspberry Allergy Hives Verified 08/06/19 10:18 sulfamethoxazole Allergy Hives Verified 08/06/19 10:18 [From Bactrim] trimethoprim [From Bactrim] Allergy Hives Verified 08/06/19 10:18 Home Medications: Home Medications Omeprazole CAP (NF) [Prilosec CAP* 20 MG] 20 mg PO BID #20 xin. 09/30/18 [Rx] Albuterol HFA INHALER* [Ventolin HFA Inhaler*] 1 - 2 puff INH Q4H PRN #1 mdi [Rx] Oseltamivir CAP* [Tamiflu CAP*] 75 mg PO BID #10 cap 08/06/19 [Rx] PMH/Surg Hx/FS Hx/Imm Hx Endocrine/Hematology History: Denies: Hx Anticoagulant Therapy, Hx Diabetes Cardiovascular History: Reports: Hx Congestive Heart Failure Denies: Hx Hypertension, Hx Myocardial Infarction Respiratory History: Reports: Hx Asthma, Hx Chronic Obstructive Pulmonary Disease (COPD) GI History: Reports: Other GI Disorders - Liquid green stools 6-10x/day x 2months. Vomiting 3x/day x 4 wks History: Denies: Hx Renal Disease Sensory History: Denies: Hx Contacts or Glasses, Hx Eye Injury, Hx Hearing Aid Opthamlomology History: Denies: Hx Contacts or Glasses, Hx Eye Injury Psychiatric History: Reports: Hx Depression - Cancer History Hx Chemotherapy: No Hx Radiation Therapy: No - sister has uterine cancer - Surgical History Surgery Procedure, Year, and Place: Cholecytomy Infectious Disease History: No Infectious Disease History: Denies: Traveled Outside the [place] in Last 30 Days - Family History Known Family History: Positive: Respiratory Disease - COPD, Other - Breast CA, COPD - Social History Alcohol Use: Daily Alcohol Amount: 2 beers daily Substance Use Type: Reports: None Hx Tobacco Use: Yes Smoking Status (MU): Heavy Every Day Tobacco Smoker Type: Cigarettes Length of Time of Smoking/Using Tobacco: 24 years Have You Smoked in the Last Year: Yes Review of Systems Positive: Chills, Skin Diaphoresis Positive: Ear Ache Positive: Chest Pain Positive: Shortness Of Breath - with cough, Cough, Other - wheezing Positive: Diarrhea. Negative: Abdominal Pain, Vomiting, Nausea Positive: Myalgia - body aches Positive: Headache All Other Systems Reviewed And Are Negative: Yes Physical Exam - Summary Physical Exam Summary: Constitutional: Well-developed, Well-nourished, Alert. (-) Distressed Skin: Warm, Dry HENT: Normocephalic; Atraumatic Eyes: Conjunctiva normal Neck: Musculoskeletal ROM normal neck. (-) JVD, (-) Stridor, (-) Tracheal deviation Cardio: Rhythm regular, rate normal, Heart sounds normal; Intact distal pulses; The pedal pulses are 2+ and symmetric. Radial pulses are 2+ and symmetric. (-) Murmur Pulmonary/Chest wall: Patient with a non-productive and dry cough; bilateral wheezing is also noted. (-) Respiratory distress, (-) Rales Abd: Soft, (-) tenderness, (-) Distension, (-) Guarding, (-) Rebound Musculoskeletal: (-) Edema Lymph: (-) Cervical adenopathy Neuro: Alert, Oriented x3 Psych: Mood and affect Normal Triage Information Reviewed: Yes Vital Signs On Initial Exam: Initial Vitals Temp Pulse Resp BP Pulse Ox 97.8 F 95 15 139/103 90 08/06/19 10:15 08/06/19 10:15 08/06/19 10:15 08/06/19 10:15 08/06/19 10:15 Vital Signs Reviewed: Yes Procedures - Sedation Patient Received Moderate/Deep Sedation with Procedure: No Diagnostics - Vital Signs Vital Signs Temp Pulse Resp BP Pulse Ox 08/06/19 10:15 97.8 F 95 15 139/103 90 - Laboratory Lab Statement: Any lab studies that have been ordered have been reviewed, and results considered in the medical decision making process. Flu Symptom Course/Dx - Course Course Of Treatment: Patient is a 43 y/o F w/ Hx of CHF, COPD, and asthma who presents to [facility] with complaints of body aches, HARRIS, ear ache, non-productive cough, and chills for the past few days. She has not checked her temperature but notes that she has been diaphoretic. Patient notes that her was recently diagnosed with influenza. She has some chest pain but attributes this to coughing. Patient states that she does not experience a burning sensation at her chest when coughing. She notes that she occasionally becomes SOB when coughing and also reports some wheezing. No N/V or abdominal pain reported but the patient does note some diarrhea. No Hx of MN, HTN, or diabetes reported. On exam, patient is noted to be with a non-productive and dry cough; bilateral wheezing is also noted. Patient was positive for Influenza A. She was given a duoneb treatment in the ED. Patient was prescribed Tamiflu and Albuterol inhaler. She was discharged to home with PCP followup. - Diagnoses Provider Diagnoses: Influenza A, COPD (chronic obstructive pulmonary disease) Discharge ED - Sign-Out/Discharge Documenting (check all that apply): Patient Departure - discharge - Discharge Plan Condition: Stable Disposition: HOME Prescriptions: Albuterol HFA INHALER* [Ventolin HFA Inhaler*] 1 - 2 puff INH Q4H PRN #1 mdi PRN Reason: Wheezing Oseltamivir CAP* [Tamiflu CAP*] 75 mg PO BID #10 cap Patient Education Materials: Influenza (ED), COPD (Chronic Obstructive Pulmonary Disease) (ED) Referrals: [facility] [Outside] - 3 Days Additional Instructions: PLEASE RETURN TO ED FOR ANY NEW OR CONCERNING SYMPTOMS. PLEASE FOLLOW UP WITH YOUR PRIMARY CARE PHYSICIAN WITHIN THREE DAYS. - Billing Disposition and Condition Condition: STABLE Disposition: Home - Attestation Statements Document Initiated by Alexa: Yes Documenting Scribe: KRISTIN MAYO Provider For Whom Alexa is Documenting (Include Credential): GABRIEL QUIROZ DO Scribe Attestation: IKRISTIN, scribed for GABRIEL QUIROZ DO on 08/06/19 at 1538. Scribe Documentation Reviewed: Yes Provider Attestation: The documentation as recorded by the KRISTIN argueta accurately reflects the service I personally performed and the decisions made by me, GABRIEL QUIROZ DO Status of Scribe Document: Viewed
[2019-08-06 10:44] LABS: Influenza A Molecular POSITIVE (Negative)
[2019-08-06 11:21] VITALS: BP 124/104
== END 2019-08-06 11:10 | disposition home or self-care (01) ==
LOC: ED 10:13
DX: J10.1 Influenza due to other identified influenza virus with other respiratory manifestations (principal); J44.9 Chronic obstructive pulmonary disease, unspecified; R05 Cough; I50.9 Heart failure, unspecified; M79.10 Myalgia, unspecified site; H92.09 Otalgia, unspecified ear; F17.210 Nicotine dependence, cigarettes, uncomplicated; Z88.0 Allergy status to penicillin; Z79.899 Other long term (current) drug therapy
CPT/HCPCS: 99282; A9270-GY

== ENCOUNTER 2020-12-11 08:12 | Inpatient (IN) ==
[2020-12-11] MEDS ORDERED: Ondansetron 4 mg VIAL 2 MG/ML 2 ml VIAL IV ONE (09:05)
[2020-12-11] MEDS ORDERED: Morphine 4 MG/ML VIAL (1 ml) IV ONE (09:05)
[2020-12-11 09:29] LABS: ABS Basophils 0.1 10^3/ul (0-0.2); ABS Eosinophils 0.1 10^3/ul (0-0.6); ABS Lymphocytes 1.3 10^3/ul (1.0-4.8); ABS Monocytes 0.6 10^3/ul (0-0.8); ABS Neutrophils 6.3 10^3/ul (1.5-7.7); Eosinophil % 0.8 %; Hematocrit 36 % (35-47); Hemoglobin 12.7 g/dL (12.0-16.0); Lymphocyte % 15.7 %; Mean Corpuscular HGB Conc 35 g/dL (31-36); Mean Corpuscular Hemoglobin 37 pg (27-31); Mean Corpuscular Volume 107 fL (80-97); Mean Platelet Volume 7.9 fL (7.4-10.4); Platelet Count 235 10^3/uL (150-450); Red Blood Count 3.41 10^6 /uL (3.70-4.87); Red Cell Distribution Width 16 % (10-15); White Blood Count 8.3 10^3/uL (3.5-10.8)
[2020-12-11 09:55] LABS: HCG Pregnancy 1.4 mIU/mL
[2020-12-11 09:57] LABS: Albumin 2.7 g/dL (3.2-5.2); Calcium 7.7 mg/dL (8.6-10.3); EGFR African American 170.8 (>60); EGFR Non-African American 141.2 (>60); Globulin 2.6 g/dL (2-4); Total Bilirubin 0.7 mg/dL (0.2-1.0); Total Protein 5.3 g/dL (6.4-8.9)
[2020-12-11 11:14] LABS: Potassium 2.6 mmol/L (3.5-5.0)
[2020-12-11 11:16] LABS: Urine Appearance Clear; Urine Bilirubin Negative (Negative); Urine Blood Negative (Negative); Urine Color Straw; Urine Glucose Negative (Negative); Urine Ketones Negative (Negative); Urine Nitrite Negative (Negative); Urine Protein Negative (Negative); Urine Specific Gravity 1.005 (1.002-1.030); Urine Urobilinogen Negative (Negative)
[2020-12-11] MEDS ORDERED: Potassium Chlor 20 meq TAB.ER PO ONE (11:35)
[2020-12-11] MEDS ORDERED: KCL 20 MEQ/100 ML IVPREMIX 20 MEQ/100 ML BAG IV ONE (11:36)
[2020-12-11] MEDS ORDERED: Iohexol 300 (CONTRAST) 10 ML SDV IV ONE (11:39)
[2020-12-11] MEDS ORDERED: NS 0.9% 1000 ml BAG 1,000 ML IV ONE (11:51)
[2020-12-11] MEDS ORDERED: Ciprofloxacin 400mg IVPREMIX 400 MG/200 ML BAG IVPB ONE (13:43)
[2020-12-11] MEDS ORDERED: metroNIDAZOLE IV 500 MG/100ML 500 MG/100 ML BAG IVPB ONE (13:45)
[2020-12-11] MEDS ORDERED: Ondansetron 4 mg VIAL 2 MG/ML 2 ml VIAL IV PRN (15:30)
[2020-12-11] MEDS ORDERED: Albuterol 2.5mg/3 ml (0.083%) NEB.SOLN INH PRN (15:31)
[2020-12-11 16:19] LABS: Magnesium 1.6 mg/dL (1.9-2.7)
[2020-12-11] MEDS ORDERED: Magnesium Sulfate 2 gm BAG 2 GM/50 ML BAG IVPB ONE (16:53)
[2020-12-11] MEDS: Morphine 2 MG/ML SYRINGE IV PRN ×2 (17:02→23:12)
[2020-12-11] MEDS: metroNIDAZOLE IV 500 MG/100ML 500 MG/100 ML BAG IVPB SCH (18:08)
[2020-12-11 18:31] LABS: Calcium 7.7 mg/dL (8.6-10.3); EGFR African American 188.8 (>60); EGFR Non-African American 156.1 (>60); Potassium 3.4 mmol/L (3.5-5.0)
[2020-12-11] MEDS ORDERED: NS 0.9% 1000 ml BAG 1,000 ML IV SCH (18:45)
[2020-12-11] MEDS: Mometasone/Formoter 200/5 MDI INH SCH (20:02)
[2020-12-11] MEDS: KCL 10 MEQ/50 ML IVPREMIX 10 MEQ/50 ML BAG IV SCH ×2 (20:44→23:12)
[2020-12-11] MEDS: Enoxaparin 40 MG/0.4 ML SYR SUBCUT SCH (20:46)
[2020-12-12] MEDS: KCL 10 MEQ/50 ML IVPREMIX 10 MEQ/50 ML BAG IV SCH (01:11)
[2020-12-12] MEDS: metroNIDAZOLE IV 500 MG/100ML 500 MG/100 ML BAG IVPB SCH ×3 (02:24→17:20)
[2020-12-12 04:49] LABS: Hepatitis C Antibody Reactive (Negative)
[2020-12-12] MEDS: Ciprofloxacin 400mg IVPREMIX 400 MG/200 ML BAG IVPB SCH ×2 (04:51→15:56)
[2020-12-12] MEDS: Morphine 2 MG/ML SYRINGE IV PRN ×3 (05:12→20:52)
[2020-12-12 05:58] LABS: INR 1.08 (0.86-1.15)
[2020-12-12 06:05] LABS: Albumin 2.4 g/dL (3.2-5.2); C Reactive Protein 1.47 mg/L (<8.01); Calcium 7.6 mg/dL (8.6-10.3); EGFR African American 159.3 (>60); EGFR Non-African American 131.6 (>60); Globulin 2.3 g/dL (2-4); Potassium 3.7 mmol/L (3.5-5.0); Total Bilirubin 1.5 mg/dL (0.2-1.0); Total Protein 4.7 g/dL (6.4-8.9)
[2020-12-12 07:19] LABS: ABS Eosinophils 0.2 10^3/ul (0-0.6); ABS Lymphocytes 1.2 10^3/ul (1.0-4.8); ABS Monocytes 0.2 10^3/ul (0-0.8); ABS Neutrophils 3.8 10^3/ul (1.5-7.7); Eosinophil % 3.3 %; Hematocrit 34 % (35-47); Hemoglobin 11.5 g/dL (12.0-16.0); Lymphocyte % 22.5 %; Mean Corpuscular HGB Conc 34 g/dL (31-36); Mean Corpuscular Hemoglobin 37 pg (27-31); Mean Corpuscular Volume 108 fL (80-97); Mean Platelet Volume 8.1 fL (7.4-10.4); Nucleated Red Blood Cells % 0.1; Platelet Count 195 10^3/uL (150-450); Red Cell Distribution Width 16 % (10-15); White Blood Count 5.5 10^3/uL (3.5-10.8)
[2020-12-12] MEDS: Mometasone/Formoter 200/5 MDI INH SCH ×2 (07:49→19:11)
[2020-12-12 08:05] LABS: Direct Bilirubin 0.4 mg/dL (0.03-0.18); Indirect Bilirubin 1.1 mg/dL (0.3-1.0)
[2020-12-12 12:01] LABS: Hepatitis B Surface Antigen Nonreactive (Nonreactive)
[2020-12-12 12:06] LABS: Hepatitis A Ab IgM Negative (Negative)
[2020-12-12 12:07] LABS: Hepatitis B Core IgM Nonreactive (Nonreactive)
[2020-12-12] MEDS: Enoxaparin 40 MG/0.4 ML SYR SUBCUT SCH (20:57)
[2020-12-13] MEDS: metroNIDAZOLE IV 500 MG/100ML 500 MG/100 ML BAG IVPB SCH ×2 (01:44→09:53)
[2020-12-13] MEDS: Morphine 2 MG/ML SYRINGE IV PRN ×2 (01:47→09:51)
[2020-12-13] MEDS: Ciprofloxacin 400mg IVPREMIX 400 MG/200 ML BAG IVPB SCH (04:00)
[2020-12-13 06:26] LABS: ABS Eosinophils 0.2 10^3/ul (0-0.6); ABS Lymphocytes 1.4 10^3/ul (1.0-4.8); ABS Monocytes 0.3 10^3/ul (0-0.8); ABS Neutrophils 3.8 10^3/ul (1.5-7.7); Eosinophil % 3.7 %; Hematocrit 30 % (35-47); Hemoglobin 10.2 g/dL (12.0-16.0); Lymphocyte % 24.6 %; Mean Corpuscular HGB Conc 34 g/dL (31-36); Mean Corpuscular Hemoglobin 38 pg (27-31); Mean Corpuscular Volume 111 fL (80-97); Platelet Count 208 10^3/uL (150-450); Red Cell Distribution Width 16 % (10-15); White Blood Count 5.8 10^3/uL (3.5-10.8)
[2020-12-13 06:36] LABS: Albumin 2.2 g/dL (3.2-5.2); Albumin/Globulin Ratio 1.1 (1-3); Calcium 7.5 mg/dL (8.6-10.3); Direct Bilirubin 0.3 mg/dL (0.03-0.18); EGFR Non-African American 152.1 (>60); Indirect Bilirubin 0.6 mg/dL (0.3-1.0); Magnesium 1.8 mg/dL (1.9-2.7); Potassium 3.4 mmol/L (3.5-5.0); Total Bilirubin 0.9 mg/dL (0.2-1.0); Total Protein 4.2 g/dL (6.4-8.9)
[2020-12-13] MEDS ORDERED: Potassium Chlor 20 meq TAB.ER PO ONE (07:57)
[2020-12-13] MEDS: Mometasone/Formoter 200/5 MDI INH SCH (07:58)
[2020-12-13 11:13] LABS: % Iron Saturation 85 % (15-55); Iron 126 ug/dL (50-212); Total Iron Binding Capacity 148 mcg/dL (250-450); Transferrin 106 mg/dL (203-362); Unsaturated Iron Binding < 133 ug/dL
[2020-12-13 11:31] LABS: Ferritin 349.6 ng/mL (11-307)
[2020-12-13 14:16] VITALS: BP 103/71
[2020-12-13 19:49] LABS: Adenovirus F40/41 Negative (Negative); Astrovirus Negative (Negative); Cryptosporidium species Negative (Negative); Cyclospora cayetanensis Negative (Negative); Entamoeba histolytica Negative (Negative); Enteroaggregative E.coli(EAEC) Negative (Negative); Enteropathogenic Ecoli(EPEC) Negative (Negative); Enterotoxigenic Ecoli(ETEC) Negative (Negative); Norovirus GI/GII Negative (Negative); Plesiomonas shigelloides Negative (Negative); Salmonella species Negative (Negative); Sapovirus Negative (Negative); Shiga toxin producing E. coli Negative (Negative); Shigella/Enteroinvasive E.coli Negative (Negative); Specimen Source STOOL; Vibrio cholerae Negative (Negative); Yersinia species Negative (Negative)
== END 2020-12-13 15:00 | disposition home or self-care (01) | DRG 249 ==
LOC: ED 08:12 → MEDTELE 14:41
PROVIDERS: ADMIT Internal Medicine; ATTEND Internal Medicine

== ENCOUNTER 2021-02-26 13:20 | Inpatient (IN) ==
[2021-02-26 17:32] LABS: ABS Eosinophils 0.1 10^3/ul (0-0.6); ABS Lymphocytes 1.5 10^3/ul (1.0-4.8); ABS Monocytes 0.7 10^3/ul (0-0.8); ABS Neutrophils 7.1 10^3/ul (1.5-7.7); Eosinophil % 0.7 %; Hematocrit 35 % (35-47); Hemoglobin 11.9 g/dL (12.0-16.0); Lymphocyte % 15.7 %; Mean Corpuscular HGB Conc 34 g/dL (31-36); Mean Corpuscular Hemoglobin 38 pg (27-31); Mean Corpuscular Volume 112 fL (80-97); Nucleated Red Blood Cells % 0.1; Platelet Count 270 10^3/uL (150-450); Red Blood Count 3.14 10^6 /uL (3.70-4.87); Red Cell Distribution Width 17 % (10-15); White Blood Count 9.3 10^3/uL (3.5-10.8)
[2021-02-26 17:49] LABS: Albumin/Globulin Ratio 0.6 (1-3); Calcium 7.4 mg/dL (8.6-10.3); EGFR Non-African American 118.2 (>60); Globulin 3.2 g/dL (2-4); Potassium 3.2 mmol/L (3.5-5.0); Total Bilirubin 2.1 mg/dL (0.2-1.0); Total Protein 5.2 g/dL (6.4-8.9)
[2021-02-26] MEDS ORDERED: Furosemide 40 mg/4 ml IV VIAL IV SLOW PU ONE (17:57)
[2021-02-26] MEDS ORDERED: Albuterol/Ipratropium NEB.SOL (2.5/0.5 MG) 3 ML NEB.SOLN INH ONE (18:19)
[2021-02-26] MEDS ORDERED: Ondansetron 4 mg VIAL 2 MG/ML 2 ml VIAL IV PRN (20:08)
[2021-02-26] MEDS ORDERED: Potassium Chlor 20 meq TAB.ER PO ONE (20:08)
[2021-02-26] MEDS ORDERED: Furosemide 20 mg/2 ml IV VIAL IV SLOW PU ONE ×2 (20:08→20:45)
[2021-02-26 20:48] LABS: Magnesium 1.7 mg/dL (1.9-2.7)
[2021-02-26] MEDS ORDERED: Iohexol 350 (CONTRAST) 500 ML MDV IV ONE (21:13)
[2021-02-26] MEDS: Heparin 5000 UNITS/ML 1 mL VIAL SUBCUT SCH (22:59)
[2021-02-26] MEDS: KCL 10 MEQ/50 ML IVPREMIX 10 MEQ/50 ML BAG IV SCH (23:00)
[2021-02-26 23:12] LABS: C Reactive Protein 29.41 mg/L (<8.01)
[2021-02-26 23:18] LABS: Rapid COVID-19 Molecular Detected (Undetected)
[2021-02-26 23:19] LABS: INR 1.27 (0.86-1.15)
[2021-02-26] MEDS ORDERED: Remdesivir 100 mg Vial 200 MG in NS 0.9% 250 ml 210 ML IV ONE (23:25)
[2021-02-26] MEDS ORDERED: cefTRIAXone 2 GM ADDV.VIAL 2 GM in NS 0.9% 100 ml BAG 100 ML IV ONE (23:30)
[2021-02-27] MEDS: Nystatin TOP POWDER 15 GM BTL TOPICAL SCH ×4 (00:13→22:02)
[2021-02-27] MEDS: Mometasone/Formoter 200/5 MDI INH SCH ×3 (00:13→19:18)
[2021-02-27] MEDS: KCL 10 MEQ/50 ML IVPREMIX 10 MEQ/50 ML BAG IV SCH ×2 (00:18→03:09)
[2021-02-27] MEDS: Albuterol HFA INHALER 8 gm MDI INH SCH ×7 (03:13→23:35)
[2021-02-27] MEDS: Heparin 5000 UNITS/ML 1 mL VIAL SUBCUT SCH ×3 (04:56→22:01)
[2021-02-27 07:09] LABS: ABS Lymphocytes 0.6 10^3/ul (1.0-4.8); ABS Monocytes 0.2 10^3/ul (0-0.8); ABS Neutrophils 5.9 10^3/ul (1.5-7.7); Eosinophil % 0.1 %; Hematocrit 30 % (35-47); Hemoglobin 10.4 g/dL (12.0-16.0); Lymphocyte % 8.3 %; Mean Corpuscular HGB Conc 35 g/dL (31-36); Mean Corpuscular Hemoglobin 39 pg (27-31); Mean Corpuscular Volume 111 fL (80-97); Mean Platelet Volume 7.9 fL (7.4-10.4); Platelet Count 233 10^3/uL (150-450); Red Blood Count 2.68 10^6 /uL (3.70-4.87); Red Cell Distribution Width 17 % (10-15); White Blood Count 6.7 10^3/uL (3.5-10.8)
[2021-02-27 07:10] LABS: INR 1.23 (0.86-1.15)
[2021-02-27 07:20] LABS: Albumin 1.8 g/dL (3.2-5.2); Albumin/Globulin Ratio 0.6 (1-3); Calcium 7.1 mg/dL (8.6-10.3); EGFR African American 124.8 (>60); EGFR Non-African American 103.1 (>60); Potassium 3.4 mmol/L (3.5-5.0); Total Bilirubin 1.1 mg/dL (0.2-1.0); Total Protein 4.8 g/dL (6.4-8.9)
[2021-02-27] MEDS: Multivitamins/Minerals TAB PO SCH (08:14)
[2021-02-27 08:16] LABS: Magnesium 1.6 mg/dL (1.9-2.7)
[2021-02-27 08:39] LABS: TSH Ultra Thyroid Stim Horm 19.18 mcIU/mL (0.34-5.60)
[2021-02-27 09:35] LABS: Free T4 0.58 ng/dL (0.61-1.12)
[2021-02-27] MEDS ORDERED: Nicotine Lozenge mini 4 MG LOZNG.MINI MT PRN (17:25)
[2021-02-27] MEDS ORDERED: Magnesium Sulf 4 GM/100 ML IV 4,000 MG/100 ML BAG IVPB ONE (17:39)
[2021-02-27] MEDS: SPIRIVA Respimat (tiotropium) 2.5 mcg/inh Inhaler INH SCH ×2 (19:19→23:36)
[2021-02-27] MEDS: Remdesivir 100 mg Vial 100 MG in NS 0.9% 250 ml 230 ML IV SCH (22:01)
[2021-02-28] MEDS ORDERED: cefTRIAXone 2 GM ADDV.VIAL 2 GM in NS 0.9% 100 ml BAG 100 ML IV SCH
[2021-02-28 01:12] LABS: Urine Appearance Clear; Urine Bilirubin Negative (Negative); Urine Blood Negative (Negative); Urine Color Amber; Urine Glucose Negative (Negative); Urine Ketones Negative (Negative); Urine Nitrite Negative (Negative); Urine Protein Negative (Negative); Urine Specific Gravity 1.042 (1.002-1.030); Urine Urobilinogen Positive (Negative)
[2021-02-28] MEDS: Albuterol HFA INHALER 8 gm MDI INH SCH ×5 (02:37→20:47)
[2021-02-28] MEDS: Heparin 5000 UNITS/ML 1 mL VIAL SUBCUT SCH ×3 (05:40→22:30)
[2021-02-28 07:02] LABS: INR 1.05 (0.86-1.15)
[2021-02-28 07:12] LABS: ALT 11 U/L (7-52); AST 37 U/L (13-39); Albumin/Globulin Ratio 0.6 (1-3); Alkaline Phosphatase 188 U/L (35-149); Anion Gap 8 mmol/L (2-11); Blood Urea Nitrogen 6 mg/dL (6-24); CO2 Carbon Dioxide 38 mmol/L (22-32); Calcium 7.4 mg/dL (8.6-10.3); Chloride 86 mmol/L (101-111); EGFR Non-African American 88.4 (>60); Globulin 3.1 g/dL (2-4); Glucose 77 mg/dL (70-100); Magnesium 2.4 mg/dL (1.9-2.7); Potassium 3.2 mmol/L (3.5-5.0); Sodium 132 mmol/L (135-145); Total Protein 5.1 g/dL (6.4-8.9)
[2021-02-28 07:28] LABS: ABS Monocytes 0.6 10^3/ul (0-0.8); ABS Neutrophils 6.8 10^3/ul (1.5-7.7); Eosinophil % 0.4 %; Hematocrit 28 % (35-47); Hemoglobin 9.7 g/dL (12.0-16.0); Lymphocyte % 20.8 %; Mean Corpuscular HGB Conc 35 g/dL (31-36); Mean Corpuscular Hemoglobin 39 pg (27-31); Mean Corpuscular Volume 112 fL (80-97); Mean Platelet Volume 7.7 fL (7.4-10.4); Nucleated Red Blood Cells % 0.1; Platelet Count 259 10^3/uL (150-450); Red Blood Count 2.51 10^6 /uL (3.70-4.87); Red Cell Distribution Width 17 % (10-15); White Blood Count 9.4 10^3/uL (3.5-10.8)
[2021-02-28] MEDS ORDERED: Lactated Ringers 1000 ml BAG 1,000 ML IV SCH (09:00)
[2021-02-28] MEDS: Multivitamins/Minerals TAB PO SCH (09:31)
[2021-02-28] MEDS: Potassium Chlor 20 meq TAB.ER PO SCH ×2 (09:32→21:00)
[2021-02-28] MEDS: Nystatin TOP POWDER 15 GM BTL TOPICAL SCH ×3 (09:33→21:01)
[2021-02-28] MEDS: Mometasone/Formoter 200/5 MDI INH SCH ×2 (09:45→20:46)
[2021-02-28 12:17] LABS: % Iron Saturation 37 % (15-55); Iron 44 ug/dL (50-212); Total Iron Binding Capacity 118 mcg/dL (250-450); Transferrin 84 mg/dL (203-362); Unsaturated Iron Binding < 103 ug/dL
[2021-02-28 12:22] LABS: Ferritin 212.8 ng/mL (11-307)
[2021-02-28 12:25] LABS: Folate 4.97 ng/mL (5.90-24.80)
[2021-02-28 12:26] LABS: Vitamin B12 962 pg/mL (180-914)
[2021-02-28] MEDS: methylPREDNISolone SOD 40 mg/ml 1 ml VIAL IV SCH ×2 (12:30→21:00)
[2021-02-28] MEDS ORDERED: Iron Sucrose 200 MG in NS 0.9% 100 ml BAG 100 ML IVPB SCH (17:00)
[2021-02-28] MEDS: Furosemide 40 mg/4 ml IV VIAL IV SLOW PU SCH (17:10)
[2021-02-28] MEDS: Remdesivir 100 mg Vial 100 MG in NS 0.9% 250 ml 230 ML IV SCH (21:00)
[2021-02-28] MEDS: SPIRIVA Respimat (tiotropium) 2.5 mcg/inh Inhaler INH SCH (21:03)
[2021-03-01] MEDS: Albuterol HFA INHALER 8 gm MDI INH SCH ×5 (02:05→15:53)
[2021-03-01] MEDS: methylPREDNISolone SOD 40 mg/ml 1 ml VIAL IV SCH (04:06)
[2021-03-01] MEDS: Heparin 5000 UNITS/ML 1 mL VIAL SUBCUT SCH ×2 (05:14→14:55)
[2021-03-01 06:18] LABS: Hematocrit 29 % (35-47); Mean Corpuscular HGB Conc 35 g/dL (31-36); Mean Corpuscular Hemoglobin 39 pg (27-31); Mean Corpuscular Volume 112 fL (80-97); Platelet Count 275 10^3/uL (150-450); Red Blood Count 2.55 10^6 /uL (3.70-4.87); Red Cell Distribution Width 18 % (10-15); White Blood Count 8.5 10^3/uL (3.5-10.8)
[2021-03-01 06:19] LABS: INR 1.08 (0.86-1.15)
[2021-03-01 06:27] LABS: Albumin 2.2 g/dL (3.2-5.2); Albumin/Globulin Ratio 0.7 (1-3); Calcium 7.7 mg/dL (8.6-10.3); EGFR African American 127.1 (>60); EGFR Non-African American 105.1 (>60); Globulin 3.2 g/dL (2-4); Magnesium 2.3 mg/dL (1.9-2.7); Potassium 3.8 mmol/L (3.5-5.0); Total Protein 5.4 g/dL (6.4-8.9)
[2021-03-01] MEDS: Mometasone/Formoter 200/5 MDI INH SCH (07:31)
[2021-03-01] MEDS: SPIRIVA Respimat (tiotropium) 2.5 mcg/inh Inhaler INH SCH (07:31)
[2021-03-01 07:47] LABS: ABS Monocytes 0.3 10^3/ul (0-0.8); ABS Neutrophils 7.2 10^3/ul (1.5-7.7); Lymphocyte % 11.7 %; Nucleated Red Blood Cells % 0.2
[2021-03-01] MEDS ORDERED: Potassium Chlor 20 meq TAB.ER PO ONE (07:56)
[2021-03-01] MEDS: Furosemide 40 mg/4 ml IV VIAL IV SLOW PU SCH (08:08)
[2021-03-01 08:53] VITALS: BP 114/81
[2021-03-01] MEDS: Nystatin TOP POWDER 15 GM BTL TOPICAL SCH ×2 (10:08→14:55)
[2021-03-01] MEDS: Multivitamins/Minerals TAB PO SCH (10:08)
[2021-03-01] MEDS ORDERED: methylPREDNISolone SOD 40 mg/ml 1 ml VIAL IV SCH (14:00)
== END 2021-03-01 17:00 | disposition left against medical advice (07) | DRG 137 ==
LOC: ED 13:20 → MED 13:20 → OBSVTOIN 19:54 → SUATTDRO 19:54 → MED 02-27 01:14
PROVIDERS: ADMIT Internal Medicine; ATTEND Internal Medicine

== ENCOUNTER 2021-03-04 17:42 | Inpatient (IN) ==
[2021-03-04 18:53] LABS: Hematocrit 32 % (35-47); Hemoglobin 10.8 g/dL (12.0-16.0); Mean Corpuscular HGB Conc 33 g/dL (31-36); Mean Corpuscular Hemoglobin 39 pg (27-31); Mean Corpuscular Volume 115 fL (80-97); Mean Platelet Volume 7.2 fL (7.4-10.4); Platelet Count 405 10^3/uL (150-450); Red Blood Count 2.81 10^6 /uL (3.70-4.87); Red Cell Distribution Width 17 % (10-15); White Blood Count 9.1 10^3/uL (3.5-10.8)
[2021-03-04 19:02] LABS: Albumin 2.4 g/dL (3.2-5.2); Albumin/Globulin Ratio 0.8 (1-3); Calcium 7.7 mg/dL (8.6-10.3); EGFR Non-African American 120.6 (>60); Globulin 3.2 g/dL (2-4); Potassium 3.2 mmol/L (3.5-5.0); Total Bilirubin 0.7 mg/dL (0.2-1.0); Total Protein 5.6 g/dL (6.4-8.9)
[2021-03-04 19:05] LABS: Troponin I 0.01 ng/mL (<0.03)
[2021-03-04 19:20] LABS: ABS Eosinophils 0.2 10^3/ul (0-0.6); ABS Lymphocytes 1.8 10^3/ul (1.0-4.8); ABS Monocytes 0.5 10^3/ul (0-0.8); ABS Neutrophils 6.5 10^3/ul (1.5-7.7); Eosinophil % 2.4 %; Lymphocyte % 20.2 %; Nucleated Red Blood Cells % 0.2
[2021-03-04 21:35] LABS: Troponin I 0.03 ng/mL (<0.03)
[2021-03-04] MEDS ORDERED: LORazepam 2 mg VIAL 1 ml IV PUSH SCH (23:45)
[2021-03-05] MEDS: Enoxaparin 40 MG/0.4 ML SYR SUBCUT SCH ×2 (00:04→20:24)
[2021-03-05] MEDS ORDERED: Potassium Chlor 20 meq TAB.ER PO ONE (01:14)
[2021-03-05 01:35] LABS: Urine Appearance Cloudy; Urine Bilirubin Negative (Negative); Urine Blood 3+ (Negative); Urine Color Yellow; Urine Glucose Negative (Negative); Urine Ketones Negative (Negative); Urine Nitrite Negative (Negative); Urine Protein Negative (Negative); Urine Specific Gravity 1.012 (1.002-1.030); Urine Urobilinogen Negative (Negative)
[2021-03-05 01:53] LABS: Urine Bacteria 1+ (Absent); Urine Red Blood Cell 3+(>10/hpf) (Absent); Urine Squamous Epithelial Cell Present (Absent); Urine White Blood Cell Trace(0-5/hpf) (Absent)
[2021-03-05] MEDS: Remdesivir 100 mg Vial 100 MG in NS 0.9% 250 ml 230 ML IV SCH (02:38)
[2021-03-05] MEDS: Albuterol HFA INHALER 8 gm MDI INH PRN ×2 (05:04→09:37)
[2021-03-05 06:43] LABS: Albumin 2.3 g/dL (3.2-5.2); Albumin/Globulin Ratio 0.7 (1-3); Calcium 7.2 mg/dL (8.6-10.3); Direct Bilirubin 0.4 mg/dL (0.03-0.18); EGFR African American 103.6 (>60); EGFR Non-African American 85.7 (>60); Globulin 3.2 g/dL (2-4); Indirect Bilirubin 0.5 mg/dL (0.3-1.0); Magnesium 2.2 mg/dL (1.9-2.7); Potassium 4.4 mmol/L (3.5-5.0); Total Bilirubin 0.9 mg/dL (0.2-1.0); Total Protein 5.5 g/dL (6.4-8.9)
[2021-03-05 06:55] LABS: INR 0.97 (0.86-1.15)
[2021-03-05 06:56] LABS: ABS Lymphocytes 0.5 10^3/ul (1.0-4.8); ABS Monocytes 0.2 10^3/ul (0-0.8); ABS Neutrophils 11.4 10^3/ul (1.5-7.7); Hematocrit 31 % (35-47); Hemoglobin 10.6 g/dL (12.0-16.0); Lymphocyte % 3.8 %; Mean Corpuscular HGB Conc 34 g/dL (31-36); Mean Corpuscular Hemoglobin 39 pg (27-31); Mean Corpuscular Volume 114 fL (80-97); Mean Platelet Volume 7.4 fL (7.4-10.4); Platelet Count 342 10^3/uL (150-450); Red Blood Count 2.73 10^6 /uL (3.70-4.87); Red Cell Distribution Width 17 % (10-15); White Blood Count 12.2 10^3/uL (3.5-10.8)
[2021-03-05] MEDS: Nicotine PATCH 21 MG/24 HR PATCH TRANSDERM SCH (08:06)
[2021-03-05] MEDS: Nystatin TOP POWDER 15 GM BTL TOPICAL SCH ×3 (08:07→20:24)
[2021-03-05] MEDS: Multivitamins/Minerals TAB PO SCH (08:07)
[2021-03-05] MEDS: Nicotine Lozenge mini 4 MG LOZNG.MINI MT PRN ×2 (08:07→13:12)
[2021-03-05 08:52] LABS: PCO2 Arterial 54 mmHg (35-45); PO2 Arterial 69 mmHg (80-100)
[2021-03-05] MEDS ORDERED: Budesonide/Formote 160/4.5(NF) MDI INH SCH (09:00)
[2021-03-05] MEDS: SPIRIVA Respimat (tiotropium) 2.5 mcg/inh Inhaler INH SCH (09:54)
[2021-03-05] MEDS: Ondansetron 4 mg VIAL 2 MG/ML 2 ml VIAL IV PRN ×2 (14:57→21:30)
[2021-03-05] MEDS ORDERED: Furosemide 40 mg/4 ml IV VIAL IV SLOW PU ONE (16:00)
[2021-03-06] MEDS: Albuterol HFA INHALER 8 gm MDI INH PRN (02:28)
[2021-03-06 06:32] LABS: Hematocrit 28 % (35-47); Hemoglobin 9.4 g/dL (12.0-16.0); Mean Corpuscular HGB Conc 34 g/dL (31-36); Mean Corpuscular Hemoglobin 39 pg (27-31); Mean Corpuscular Volume 115 fL (80-97); Mean Platelet Volume 7.3 fL (7.4-10.4); Platelet Count 299 10^3/uL (150-450); Red Blood Count 2.42 10^6 /uL (3.70-4.87); Red Cell Distribution Width 17 % (10-15)
[2021-03-06 07:02] LABS: Albumin 2.3 g/dL (3.2-5.2); Albumin/Globulin Ratio 0.8 (1-3); Calcium 7.6 mg/dL (8.6-10.3); EGFR African American 137.3 (>60); EGFR Non-African American 113.5 (>60); Globulin 2.8 g/dL (2-4); Magnesium 2.2 mg/dL (1.9-2.7); Phosphorus 4.1 mg/dL (2.5-5.0); Potassium 4.7 mmol/L (3.5-5.0); Total Bilirubin 0.7 mg/dL (0.2-1.0); Total Protein 5.1 g/dL (6.4-8.9)
[2021-03-06] MEDS: Nystatin TOP POWDER 15 GM BTL TOPICAL SCH ×3 (07:54→20:16)
[2021-03-06] MEDS: Nicotine PATCH 21 MG/24 HR PATCH TRANSDERM SCH (08:01)
[2021-03-06] MEDS: Remdesivir 100 mg Vial 100 MG in NS 0.9% 250 ml 230 ML IV SCH (08:01)
[2021-03-06] MEDS: Multivitamins/Minerals TAB PO SCH (08:02)
[2021-03-06] MEDS: Nicotine Lozenge mini 4 MG LOZNG.MINI MT PRN ×2 (08:03→11:20)
[2021-03-06] MEDS: SPIRIVA Respimat (tiotropium) 2.5 mcg/inh Inhaler INH SCH (08:25)
[2021-03-06] MEDS: Calcium Carb (TUMS) 500 mg CHEW TAB PO PRN ×2 (11:20→15:25)
[2021-03-06] MEDS: Ondansetron 4 mg VIAL 2 MG/ML 2 ml VIAL IV PRN ×2 (11:20→20:10)
[2021-03-06] MEDS ORDERED: Furosemide 20 mg/2 ml IV VIAL IV SLOW PU ONE (14:15)
[2021-03-06] MEDS: Enoxaparin 40 MG/0.4 ML SYR SUBCUT SCH (20:10)
[2021-03-07 06:26] LABS: Hematocrit 31 % (35-47); Hemoglobin 10.2 g/dL (12.0-16.0); Mean Corpuscular HGB Conc 33 g/dL (31-36); Mean Corpuscular Hemoglobin 38 pg (27-31); Mean Corpuscular Volume 116 fL (80-97); Mean Platelet Volume 7.3 fL (7.4-10.4); Platelet Count 329 10^3/uL (150-450); Red Blood Count 2.68 10^6 /uL (3.70-4.87); Red Cell Distribution Width 17 % (10-15); White Blood Count 9.3 10^3/uL (3.5-10.8)
[2021-03-07 06:43] LABS: Albumin 2.6 g/dL (3.2-5.2); Albumin/Globulin Ratio 0.9 (1-3); Calcium 8.1 mg/dL (8.6-10.3); EGFR African American 134.6 (>60); EGFR Non-African American 111.2 (>60); Magnesium 2.1 mg/dL (1.9-2.7); Potassium 4.7 mmol/L (3.5-5.0); Total Bilirubin 0.7 mg/dL (0.2-1.0); Total Protein 5.6 g/dL (6.4-8.9)
[2021-03-07] MEDS: SPIRIVA Respimat (tiotropium) 2.5 mcg/inh Inhaler INH SCH (07:33)
[2021-03-07] MEDS: Albuterol HFA INHALER 8 gm MDI INH PRN (07:33)
[2021-03-07] MEDS: Nystatin TOP POWDER 15 GM BTL TOPICAL SCH ×2 (08:30→13:36)
[2021-03-07] MEDS: Nicotine PATCH 21 MG/24 HR PATCH TRANSDERM SCH (08:30)
[2021-03-07] MEDS: Nicotine Lozenge mini 4 MG LOZNG.MINI MT PRN ×2 (08:31→13:31)
[2021-03-07] MEDS: Multivitamins/Minerals TAB PO SCH (08:33)
[2021-03-07] MEDS: Calcium Carb (TUMS) 500 mg CHEW TAB PO PRN ×2 (08:33→13:31)
[2021-03-07] MEDS ORDERED: Furosemide 20 mg/2 ml IV VIAL IV SLOW PU ONE (10:20)
[2021-03-07 13:06] VITALS: BP 142/95
== END 2021-03-07 16:45 | disposition home or self-care (01) | DRG 137 ==
LOC: ED 17:42 → SUATTDRO 23:20 → MED 23:20
PROVIDERS: ADMIT Internal Medicine; ATTEND Internal Medicine

== ENCOUNTER 2021-07-28 21:56 | Inpatient (IN) ==
[2021-07-28 22:24] LABS: ABS Basophils 0.1 10^3/ul (0-0.2); ABS Eosinophils 0.2 10^3/ul (0-0.6); ABS Lymphocytes 1.6 10^3/ul (1.0-4.8); ABS Monocytes 0.5 10^3/ul (0-0.8); ABS Neutrophils 4.9 10^3/ul (1.5-7.7); Eosinophil % 2.1 %; Hematocrit 35 % (35-47); Hemoglobin 12.1 g/dL (12.0-16.0); Lymphocyte % 21.5 %; Mean Corpuscular HGB Conc 34 g/dL (31-36); Mean Corpuscular Hemoglobin 36 pg (27-31); Mean Corpuscular Volume 104 fL (80-97); Mean Platelet Volume 7.6 fL (7.4-10.4); Platelet Count 227 10^3/uL (150-450); Red Blood Count 3.38 10^6 /uL (3.70-4.87); Red Cell Distribution Width 13 % (10-15); White Blood Count 7.2 10^3/uL (3.5-10.8)
[2021-07-28 22:42] LABS: Albumin 2.8 g/dL (3.2-5.2); Albumin/Globulin Ratio 0.9 (1-3); Calcium 8.1 mg/dL (8.6-10.3); Globulin 3.2 g/dL (2-4); Total Bilirubin 0.4 mg/dL (0.2-1.0); eGFR CKD-EPI 118.2 (>60)
[2021-07-28 22:45] LABS: Troponin I 0.01 ng/mL (<0.03)
[2021-07-28 22:51] LABS: Potassium 2.6 mmol/L (3.5-5.0)
[2021-07-28] MEDS ORDERED: Potassium EFFERVES 25 meq TAB PO ONE (22:56)
[2021-07-28] MEDS ORDERED: Lactated Ringers 1000 ml BAG 1,000 ML IV ONE (22:56)
[2021-07-28 23:54] LABS: HCG Pregnancy 1.77 mIU/mL
[2021-07-28 23:55] LABS: Magnesium 1.6 mg/dL (1.9-2.7)
[2021-07-29] MEDS ORDERED: Lactated Ringers 1000 ml BAG 1,000 ML IV ONE (00:46)
[2021-07-29] MEDS ORDERED: Iohexol 300 (CONTRAST) 10 ML SDV IV ONE (01:01)
[2021-07-29] MEDS ORDERED: Magnesium Sulfate IV 3 GM in NS 0.9% 100 ml BAG 100 ML IVPB ONE (01:24)
[2021-07-29] MEDS ORDERED: Magnesium Sulfate 2 GM IV (Premix) IVPB ONE (02:30)
[2021-07-29] MEDS ORDERED: Magnesium Sulfate 1 GM IV 1 GM/100 ML BAG IV ONE (02:30)
[2021-07-29] MEDS ORDERED: Albuterol 2.5mg/3 ml (0.083%) NEB.SOLN INH PRN (03:00)
[2021-07-29] MEDS ORDERED: Umeclidinium 62.5 MDI(NF) MDI INH SCH (03:00)
[2021-07-29] MEDS ORDERED: Potassium EFFERVES 25 meq TAB PO ONE (03:07)
[2021-07-29] MEDS ORDERED: NS 0.9% 1000 ml BAG 1,000 ML IV SCH (03:15)
[2021-07-29] MEDS ORDERED: CALCIUM GLUCONATE 1GM/50ML NS 1 GM/50 ML BAG IV ONE (03:42)
[2021-07-29 03:44] LABS: TSH Ultra Thyroid Stim Horm 6.19 mcIU/mL (0.34-5.60)
[2021-07-29] MEDS ORDERED: Albuterol HFA INHALER 8 gm MDI INH PRN (03:44)
[2021-07-29 03:54] LABS: Osmolality Serum 272 mOsm/kg (275-295)
[2021-07-29 03:55] LABS: Folate 18.94 ng/mL (5.90-24.80)
[2021-07-29 05:37] LABS: INR 1.12 (0.86-1.15)
[2021-07-29 05:47] LABS: Calcium 7.9 mg/dL (8.6-10.3); Magnesium 2.5 mg/dL (1.9-2.7); eGFR CKD-EPI 110.8 (>60)
[2021-07-29 06:41] LABS: Urine Appearance Clear; Urine Bilirubin Negative (Negative); Urine Blood Negative (Negative); Urine Color Yellow; Urine Glucose Negative (Negative); Urine Ketones Negative (Negative); Urine Nitrite Negative (Negative); Urine Protein Negative (Negative); Urine Specific Gravity 1.026 (1.002-1.030); Urine Urobilinogen Negative (Negative)
[2021-07-29] MEDS: CMC:FLUTICAS/UMECLI/VILANT 200-62.5-25 MDI (NF) INH SCH (08:21)
[2021-07-29] MEDS: NS 0.9% 1000 ml BAG 1,000 ML IV SCH ×2 (08:48→19:22)
[2021-07-29] MEDS: Nicotine GUM 4MG FRUIT FLAVOR PO PRN (08:48)
[2021-07-29] MEDS: Enoxaparin 40 MG/0.4 ML SYR SUBCUT SCH (08:49)
[2021-07-29] MEDS ORDERED: Albuterol/Ipratropium NEB.SOL (2.5/0.5 MG) 3 ML NEB.SOLN INH PRN (10:22)
[2021-07-29] MEDS: Ondansetron 4 mg VIAL 2 MG/ML 2 ml VIAL IV PRN (10:37)
[2021-07-30 05:49] LABS: ABS Eosinophils 0.3 10^3/ul (0-0.6); ABS Monocytes 0.3 10^3/ul (0-0.8); ABS Neutrophils 3.5 10^3/ul (1.5-7.7); Eosinophil % 5.4 %; Hematocrit 31 % (35-47); Hemoglobin 10.7 g/dL (12.0-16.0); Lymphocyte % 20.7 %; Mean Corpuscular HGB Conc 35 g/dL (31-36); Mean Corpuscular Hemoglobin 37 pg (27-31); Mean Corpuscular Volume 108 fL (80-97); Mean Platelet Volume 8.4 fL (7.4-10.4); Platelet Count 199 10^3/uL (150-450); Red Blood Count 2.87 10^6 /uL (3.70-4.87); Red Cell Distribution Width 13 % (10-15); White Blood Count 5.1 10^3/uL (3.5-10.8)
[2021-07-30 06:00] LABS: Albumin 2.3 g/dL (3.2-5.2); Albumin/Globulin Ratio 0.8 (1-3); Calcium 7.8 mg/dL (8.6-10.3); Globulin 2.8 g/dL (2-4); Magnesium 2.1 mg/dL (1.9-2.7); Potassium 3.5 mmol/L (3.5-5.0); Total Bilirubin 0.4 mg/dL (0.2-1.0); Total Protein 5.1 g/dL (6.4-8.9); eGFR CKD-EPI 110.8 (>60)
[2021-07-30] MEDS: CMC:FLUTICAS/UMECLI/VILANT 200-62.5-25 MDI (NF) INH SCH (07:24)
[2021-07-30] MEDS: Nicotine GUM 4MG FRUIT FLAVOR PO PRN (10:33)
[2021-07-30] MEDS: Enoxaparin 40 MG/0.4 ML SYR SUBCUT SCH (10:34)
[2021-07-30 12:38] LABS: Calcium 8.2 mg/dL (8.6-10.3); Potassium 3.4 mmol/L (3.5-5.0); eGFR CKD-EPI 117.1 (>60)
[2021-07-30] MEDS: Ondansetron 4 mg VIAL 2 MG/ML 2 ml VIAL IV PRN ×2 (12:50→20:12)
[2021-07-31 06:05] LABS: ABS Eosinophils 0.3 10^3/ul (0-0.6); ABS Monocytes 0.2 10^3/ul (0-0.8); ABS Neutrophils 2.8 10^3/ul (1.5-7.7); Eosinophil % 6.1 %; Hematocrit 30 % (35-47); Lymphocyte % 23.9 %; Mean Corpuscular HGB Conc 33 g/dL (31-36); Mean Corpuscular Hemoglobin 36 pg (27-31); Mean Corpuscular Volume 108 fL (80-97); Platelet Count 203 10^3/uL (150-450); Red Blood Count 2.78 10^6 /uL (3.70-4.87); Red Cell Distribution Width 13 % (10-15); White Blood Count 4.4 10^3/uL (3.5-10.8)
[2021-07-31 06:09] LABS: Calcium 8.3 mg/dL (8.6-10.3); Magnesium 2.1 mg/dL (1.9-2.7); Potassium 3.9 mmol/L (3.5-5.0); eGFR CKD-EPI 110.4 (>60)
[2021-07-31 07:28] VITALS: BP 90/64
[2021-07-31] MEDS: CMC:FLUTICAS/UMECLI/VILANT 200-62.5-25 MDI (NF) INH SCH (07:39)
[2021-07-31] MEDS: Enoxaparin 40 MG/0.4 ML SYR SUBCUT SCH (10:28)
== END 2021-07-31 11:45 | disposition home or self-care (01) | DRG 775 ==
LOC: ED 21:56 → SUATTDRO 07-29 02:54 → EDHOLD 07-29 02:54 → MEDTELE 07-29 06:37
PROVIDERS: ADMIT Internal Medicine; ATTEND Hospitalist

== ENCOUNTER 2021-08-10 10:17 | Observation (INO) ==
[2021-08-10] MEDS ORDERED: Lidocaine 1% MPF 5 ML VIAL INJ ONE (10:49)
[2021-08-10 11:54] LABS: ABS Eosinophils 0.4 10^3/ul (0-0.6); ABS Lymphocytes 1.5 10^3/ul (1.0-4.8); ABS Monocytes 0.3 10^3/ul (0-0.8); Eosinophil % 7.5 %; Hematocrit 34 % (35-47); Hemoglobin 11.3 g/dL (12.0-16.0); Lymphocyte % 28.9 %; Mean Corpuscular HGB Conc 34 g/dL (31-36); Mean Corpuscular Hemoglobin 36 pg (27-31); Mean Corpuscular Volume 106 fL (80-97); Mean Platelet Volume 6.9 fL (7.4-10.4); Platelet Count 454 10^3/uL (150-450); Red Blood Count 3.18 10^6 /uL (3.70-4.87); Red Cell Distribution Width 13 % (10-15); White Blood Count 5.3 10^3/uL (3.5-10.8)
[2021-08-10 12:04] LABS: Albumin 2.9 g/dL (3.2-5.2); Albumin/Globulin Ratio 0.9 (1-3); C Reactive Protein 4.16 mg/L (<8.01); Calcium 8.6 mg/dL (8.6-10.3); Globulin 3.3 g/dL (2-4); Potassium 4.2 mmol/L (3.5-5.0); Total Bilirubin 0.3 mg/dL (0.2-1.0); Total Protein 6.2 g/dL (6.4-8.9); eGFR CKD-EPI 117.1 (>60)
[2021-08-10 13:23] LABS: Erythrocyte Sed Rate 58 mm/Hr (0-19)
[2021-08-10] MEDS ORDERED: Albuterol HFA INHALER 8 gm MDI INH PRN (13:44)
[2021-08-10] MEDS ORDERED: Vancomycin 1,000 MG in NS 0.9% 250 ml 250 ML IVPB ONE (14:01)
[2021-08-10 14:50] LABS: TSH Ultra Thyroid Stim Horm 6.57 mcIU/mL (0.34-5.60)
[2021-08-10] MEDS ORDERED: Vancomycin 1,250 MG IV x ONCE IVPB ONE (15:00)
[2021-08-10] MEDS ORDERED: Vancomycin per Pharmacy 1 EA NOTE FOLLOW UP SCH (15:00)
[2021-08-10] MEDS ORDERED: Cefepime 2 GM IV - ED ONCE IV ONE (15:00)
[2021-08-10] MEDS ORDERED: Gadoteridol (CONTRAST) 279.3 MG/ML 10 ML IV ONE (15:35)
[2021-08-10] MEDS: Enoxaparin 40 MG/0.4 ML SYR SUBCUT SCH (19:27)
[2021-08-11] MEDS: Vancomycin 1,250 MG in NS 0.9% 250 ml 250 ML IVPB SCH ×3 (05:24→22:32)
[2021-08-11 06:51] LABS: ABS Eosinophils 0.4 10^3/ul (0-0.6); ABS Lymphocytes 1.1 10^3/ul (1.0-4.8); ABS Monocytes 0.3 10^3/ul (0-0.8); ABS Neutrophils 4.2 10^3/ul (1.5-7.7); Eosinophil % 6.7 %; Hematocrit 30 % (35-47); Hemoglobin 10.2 g/dL (12.0-16.0); Lymphocyte % 18.7 %; Mean Corpuscular HGB Conc 34 g/dL (31-36); Mean Corpuscular Hemoglobin 36 pg (27-31); Mean Corpuscular Volume 107 fL (80-97); Mean Platelet Volume 7.6 fL (7.4-10.4); Nucleated Red Blood Cells % 0.1; Platelet Count 409 10^3/uL (150-450); Red Blood Count 2.82 10^6 /uL (3.70-4.87); Red Cell Distribution Width 13 % (10-15)
[2021-08-11 07:04] LABS: C Reactive Protein 5.33 mg/L (<8.01); Calcium 8.3 mg/dL (8.6-10.3); Potassium 4.1 mmol/L (3.5-5.0); eGFR CKD-EPI 112.4 (>60)
[2021-08-11] MEDS: CMC:FLUTICAS/UMECLI/VILANT 200-62.5-25 MDI (NF) INH SCH (07:37)
[2021-08-11] MEDS: Cefepime 2 GM in Dextrose 2 GM/50 ML BAG IV SCH ×2 (07:43→20:52)
[2021-08-11] MEDS: Potassium Chlor 20 meq TAB.ER PO SCH (08:53)
[2021-08-11] MEDS: Enoxaparin 40 MG/0.4 ML SYR SUBCUT SCH (13:08)
[2021-08-11] MEDS ORDERED: Ondansetron 4 mg VIAL 2 MG/ML 2 ml VIAL IV PRN (13:41)
[2021-08-11] MEDS: Nicotine GUM 4MG FRUIT FLAVOR PO PRN ×2 (13:54→21:07)
[2021-08-11 16:20] LABS: Free T4 0.89 ng/dL (0.61-1.12)
[2021-08-12] MEDS: Vancomycin 1,250 MG in NS 0.9% 250 ml 250 ML IVPB SCH ×2 (04:18→12:49)
[2021-08-12 06:01] LABS: ABS Eosinophils 0.5 10^3/ul (0-0.6); ABS Lymphocytes 1.1 10^3/ul (1.0-4.8); ABS Monocytes 0.3 10^3/ul (0-0.8); ABS Neutrophils 3.5 10^3/ul (1.5-7.7); Eosinophil % 8.9 %; Hematocrit 30 % (35-47); Lymphocyte % 20.2 %; Mean Corpuscular HGB Conc 34 g/dL (31-36); Mean Corpuscular Hemoglobin 36 pg (27-31); Mean Corpuscular Volume 106 fL (80-97); Mean Platelet Volume 7.3 fL (7.4-10.4); Platelet Count 363 10^3/uL (150-450); Red Blood Count 2.79 10^6 /uL (3.70-4.87); Red Cell Distribution Width 13 % (10-15); White Blood Count 5.4 10^3/uL (3.5-10.8)
[2021-08-12 06:15] LABS: Calcium 8.3 mg/dL (8.6-10.3); Magnesium 1.8 mg/dL (1.9-2.7); Potassium 4.2 mmol/L (3.5-5.0); eGFR CKD-EPI 106.3 (>60)
[2021-08-12] MEDS: Benzocaine/Menthol LOZ MT PRN ×2 (06:16→10:52)
[2021-08-12] MEDS: CMC:FLUTICAS/UMECLI/VILANT 200-62.5-25 MDI (NF) INH SCH (07:18)
[2021-08-12] MEDS: Nicotine GUM 4MG FRUIT FLAVOR PO PRN ×2 (08:51→13:45)
[2021-08-12] MEDS: Potassium Chlor 20 meq TAB.ER PO SCH (08:54)
[2021-08-12] MEDS: Cefepime 2 GM in Dextrose 2 GM/50 ML BAG IV SCH (08:58)
[2021-08-12] MEDS: Magnesium Sulfate IV 1GM/100ML 1 GM/100 ML BAG IV ONE ×2 (10:05→13:33)
[2021-08-12 11:29] VITALS: BP 137/86
[2021-08-12] MEDS ORDERED: Vancomycin Trough Check NOTE FOLLOW UP ONE (11:30)
[2021-08-12] MEDS: Enoxaparin 40 MG/0.4 ML SYR SUBCUT SCH (13:48)
== END 2021-08-12 16:10 | disposition home or self-care (01) ==
LOC: ED 10:17 → MED 10:17 → SUATTDRO 13:38 → MED 23:17
PROVIDERS: ADMIT Internal Medicine; ATTEND Hospitalist

== ENCOUNTER 2022-07-08 17:34 | Inpatient (IN) ==
[2022-07-08] MEDS ORDERED: Dexamethasone IV 4 MG/ML VIAL 1 ml VIAL IV SLOW PU ONE (18:35)
[2022-07-08] MEDS ORDERED: NS 0.9% 1000 ml BAG 1,000 ML IV ONE (18:35)
[2022-07-08] MEDS ORDERED: Albuterol/Ipratropium NEB.SOL (2.5/0.5 MG) 3 ML NEB.SOLN INH ONE (18:36)
[2022-07-08 18:55] LABS: ABS Eosinophils 0.2 10^3/ul (0-0.6); ABS Lymphocytes 2.4 10^3/ul (1.0-4.8); ABS Monocytes 0.3 10^3/ul (0-0.8); Eosinophil % 3.4 %; Hematocrit 32 % (35-47); Hemoglobin 11.2 g/dL (12.0-16.0); Lymphocyte % 40.7 %; Mean Corpuscular HGB Conc 35 g/dL (31-36); Mean Corpuscular Hemoglobin 36 pg (27-31); Mean Corpuscular Volume 104 fL (80-97); Mean Platelet Volume 8.3 fL (7.4-10.4); Nucleated Red Blood Cells % 0.1; Platelet Count 234 10^3/uL (150-450); Red Cell Distribution Width 14 % (10-15)
[2022-07-08 19:11] LABS: Activated Partial Thrombo Time 34.1 seconds (26.0-38.0); INR 1.04 (0.88-1.18)
[2022-07-08 19:18] LABS: High Sens Troponin Baseline 5 pg/mL (<15)
[2022-07-08 19:32] LABS: ALT 66 U/L (7-52); AST 131 U/L (13-39); Albumin 2.2 g/dL (3.2-5.2); Albumin/Globulin Ratio 0.6 (1-3); Alkaline Phosphatase 405 U/L (35-149); Blood Urea Nitrogen 5 mg/dL (6-24); C Reactive Protein 5.02 mg/L (<8.01); CO2 Carbon Dioxide 23 mmol/L (22-32); Calcium 7.8 mg/dL (8.6-10.3); Chloride 90 mmol/L (101-111); Creatinine, Serum 0.64 mg/dL (0.51-0.95); Globulin 3.7 g/dL (2-4); Glucose 89 mg/dL (70-100); Lipase 10 U/L (11.0-82.0); Sodium 127 mmol/L (135-145); Total Protein 5.9 g/dL (6.4-8.9); eGFR CKD-EPI 111.7 (>60)
[2022-07-08 19:33] LABS: Anion Gap 14 mmol/L (2-11); Potassium 2.7 mmol/L (3.5-5.0)
[2022-07-08] MEDS ORDERED: Lactated Ringers SEPSIS* BAG 1,710 ML IV ONE (19:35)
[2022-07-08] MEDS ORDERED: Cefepime 2 GM in Dextrose 2 GM/50 ML BAG IV ONE (20:15)
[2022-07-08] MEDS ORDERED: metroNIDAZOLE IV 500 MG/100ML 500 MG/100 ML BAG IVPB ONE (20:15)
[2022-07-08] MEDS ORDERED: Vancomycin 1,000 MG in NS 0.9% 250 ml 250 ML IVPB SCH (21:00)
[2022-07-08] MEDS ORDERED: Iodixanol (CONTRAST) 320 MG/ML 100 ML SDV IV ONE (21:09)
[2022-07-08 21:16] LABS: High Sensitivity Troponin 1 Hr 4 pg/mL (<15)
[2022-07-08] MEDS ORDERED: Vancomycin 1,000 MG - ED ONCE IVPB ONE (21:30)
[2022-07-08] MEDS: KCL 20 MEQ/100 ML IVPREMIX 20 MEQ/100 ML BAG IV SCH (22:15)
[2022-07-08 22:34] LABS: Urine Appearance Clear; Urine Bilirubin Negative (Negative); Urine Blood Negative (Negative); Urine Color Yellow; Urine Glucose Negative (Negative); Urine Ketones Negative (Negative); Urine Nitrite Negative (Negative); Urine Protein Negative (Negative); Urine Specific Gravity 1.016 (1.002-1.030); Urine Urobilinogen Negative (Negative)
[2022-07-08] MEDS ORDERED: Lactated Ringers 1000 ml BAG 1,000 ML IV ONE (22:34)
[2022-07-08 22:37] LABS: Urine Bacteria Absent (Absent); Urine Red Blood Cell Absent (Absent); Urine Squamous Epithelial Cell Present (Absent); Urine White Blood Cell Trace(0-5/hpf) (Absent)
[2022-07-08] MEDS ORDERED: Enoxaparin 40 MG/0.4 ML SYR SUBCUT SCH (23:45)
[2022-07-08] MEDS ORDERED: LORazepam 2 mg VIAL 1 ml IV PUSH SCH (23:45)
[2022-07-08 23:47] LABS: Magnesium 1.8 mg/dL (1.9-2.7)
[2022-07-08] MEDS ORDERED: Thiamine 100 MG/ML 2 ml VIAL (200 mg) IM ONE (23:59)
[2022-07-09] MEDS ORDERED: Lorazepam PYXIS KEY PRN (00:05)
[2022-07-09 00:23] LABS: TSH Ultra Thyroid Stim Horm 5.96 mcIU/mL (0.34-5.60)
[2022-07-09] MEDS: KCL 20 MEQ/100 ML IVPREMIX 20 MEQ/100 ML BAG IV SCH (00:26)
[2022-07-09 00:35] LABS: Folate 9.77 ng/mL (5.90-24.80)
[2022-07-09 00:36] LABS: Vitamin B12 > 1450 pg/mL (180-914)
[2022-07-09] MEDS: Al Hydrox/Mg Hydrox/Simet LIQ 30 ML UDC PO PRN ×2 (02:33→20:47)
[2022-07-09] MEDS ORDERED: Magnesium Sulfate 2 gm BAG 2 GM/50 ML BAG IVPB ONE (04:05)
[2022-07-09] MEDS ORDERED: Albuterol HFA INHALER 8 gm MDI INH PRN (04:19)
[2022-07-09 06:23] LABS: ABS Lymphocytes 0.4 10^3/ul (1.0-4.8); ABS Neutrophils 2.5 10^3/ul (1.5-7.7); Eosinophil % 0.3 %; Hematocrit 30 % (35-47); Hemoglobin 10.3 g/dL (12.0-16.0); Lymphocyte % 14.6 %; Mean Corpuscular HGB Conc 34 g/dL (31-36); Mean Corpuscular Hemoglobin 35 pg (27-31); Mean Corpuscular Volume 103 fL (80-97); Mean Platelet Volume 8.4 fL (7.4-10.4); Platelet Count 208 10^3/uL (150-450); Red Blood Count 2.92 10^6 /uL (3.70-4.87); Red Cell Distribution Width 14 % (10-15); White Blood Count 3.1 10^3/uL (3.5-10.8)
[2022-07-09 07:07] LABS: Calcium 7.4 mg/dL (8.6-10.3); Creatinine, Serum 0.83 mg/dL (0.51-0.95); Magnesium 2.5 mg/dL (1.9-2.7); Potassium 4.1 mmol/L (3.5-5.0); eGFR CKD-EPI 89.1 (>60)
[2022-07-09] MEDS: Multivitamins/Minerals TAB PO SCH (08:50)
[2022-07-09] MEDS: Pantoprazole VIAL 40 MG VIAL IV SCH ×2 (08:50→20:48)
[2022-07-09] MEDS: Potassium Chlor 20 meq TAB.ER PO SCH (08:50)
[2022-07-09] MEDS ORDERED: Pneumococcal Vac 23-Polyvalent IM ONE (09:00)
[2022-07-09] MEDS ORDERED: Influenza vaccine *QUAD* *2022-23* 0.5 ML SYRINGE IM ONE (09:00)
[2022-07-09] MEDS: Nicotine Lozenge mini 4 MG LOZNG.MINI MT PRN ×2 (09:09→20:47)
[2022-07-09] MEDS: Ondansetron 4 mg VIAL 2 MG/ML 2 ml VIAL IV PRN (09:09)
[2022-07-09] MEDS: NS 0.9% 1000 ml BAG 1,000 ML IV SCH ×2 (09:17→20:51)
[2022-07-09 09:41] LABS: Albumin/Globulin Ratio 0.6 (1-3); Direct Bilirubin 0.3 mg/dL (0.03-0.18); Globulin 3.2 g/dL (2-4); Indirect Bilirubin 0.7 mg/dL (0.3-1.0); Total Protein 5.2 g/dL (6.4-8.9)
[2022-07-09 10:32] LABS: Free T4 0.79 ng/dL (0.61-1.12)
[2022-07-09] MEDS: CMCS: FLUTICAS/UMECLI/VILANT 200-62.5-25 MDI (NF) INH SCH (11:10)
[2022-07-09] MEDS ORDERED: NS 0.9% 1000 ml BAG 1,000 ML IV ONE (13:01)
[2022-07-09] MEDS ORDERED: Iohexol 350 (CONTRAST) 500 ML MDV IV ONE (14:49)
[2022-07-09] MEDS ORDERED: Naloxone 0.4 mg VIAL 0.4 mg/ml 1 ml VIAL IV PUSH PRN (16:20)
[2022-07-09] MEDS ORDERED: fentaNYL 100 mcg/2 ml 50 MCG/ML VIAL IV SLOW PU ONE (16:20)
[2022-07-09] MEDS ORDERED: Flumazenil 0.5 mg/5 ml 0.1 MG/ML 5 ml VIAL IV PRN (16:20)
[2022-07-09] MEDS ORDERED: Lactated Ringers 1000 ml BAG 1,000 ML IV ONE (16:20)
[2022-07-10] MEDS ORDERED: NS 0.9% 1000 ml BAG 1,000 ML IV SCH (01:45)
[2022-07-10 05:59] LABS: ABS Lymphocytes 1.1 10^3/ul (1.0-4.8); ABS Monocytes 0.3 10^3/ul (0-0.8); ABS Neutrophils 3.5 10^3/ul (1.5-7.7); Eosinophil % 0.5 %; Hematocrit 24 % (35-47); Hemoglobin 8.1 g/dL (12.0-16.0); Lymphocyte % 21.8 %; Mean Corpuscular HGB Conc 34 g/dL (31-36); Mean Corpuscular Hemoglobin 36 pg (27-31); Mean Corpuscular Volume 107 fL (80-97); Mean Platelet Volume 8.6 fL (7.4-10.4); Platelet Count 193 10^3/uL (150-450); Red Blood Count 2.26 10^6 /uL (3.70-4.87); Red Cell Distribution Width 15 % (10-15)
[2022-07-10 06:22] LABS: Albumin 1.8 g/dL (3.2-5.2); Albumin/Globulin Ratio 0.7 (1-3); Creatinine, Serum 1.11 mg/dL (0.51-0.95); Globulin 2.5 g/dL (2-4); Magnesium 2.2 mg/dL (1.9-2.7); Potassium 3.8 mmol/L (3.5-5.0); Total Bilirubin 0.4 mg/dL (0.2-1.0); Total Protein 4.3 g/dL (6.4-8.9); eGFR CKD-EPI 62.9 (>60)
[2022-07-10] MEDS: CMCS: FLUTICAS/UMECLI/VILANT 200-62.5-25 MDI (NF) INH SCH (07:32)
[2022-07-10] MEDS: Nicotine Lozenge mini 4 MG LOZNG.MINI MT PRN ×2 (07:50→21:18)
[2022-07-10] MEDS: Pantoprazole VIAL 40 MG VIAL IV SCH ×2 (07:50→21:18)
[2022-07-10] MEDS: Potassium Chlor 20 meq TAB.ER PO SCH ×2 (07:50→07:54)
[2022-07-10] MEDS: Multivitamins/Minerals TAB PO SCH (07:50)
[2022-07-10] MEDS ORDERED: NS 0.9% 500 ml BAG 500 ML IV ONE (09:35)
[2022-07-10] MEDS: NS 0.9% 1000 ml BAG 1,000 ML IV SCH ×2 (10:49→22:43)
[2022-07-10] MEDS ORDERED: Ondansetron 4 mg VIAL 2 MG/ML 2 ml VIAL IV PRN (11:35)
[2022-07-10] MEDS ORDERED: Naloxone 0.4 mg VIAL 0.4 mg/ml 1 ml VIAL IV PRN (11:35)
[2022-07-10] MEDS ORDERED: Levalbuterol 0.63MG/3ML NEB UNIT OF USE INH PRN (11:35)
[2022-07-10] MEDS ORDERED: Midazolam 2 mg/2 ml VIAL 1 mg/ml 2 ml VIAL (2 mg) ONE (12:16)
[2022-07-10] MEDS ORDERED: Propofol 10 MG/ML 20 ML BTL ONE (12:16)
[2022-07-10] MEDS ORDERED: Lidocaine 2% PF 5 ML VIAL ONE (12:16)
[2022-07-10] MEDS ORDERED: Phenylephrine 40 mcg/mL 10mL (400mcg) SYRINGE ONE ×2 (13:28→13:49)
[2022-07-10 18:37] LABS: Hematocrit 30 % (35-47); Hemoglobin 9.7 g/dL (12.0-16.0)
[2022-07-10] MEDS: Enoxaparin 40 MG/0.4 ML SYR SUBCUT SCH (21:18)
[2022-07-10] MEDS: Al Hydrox/Mg Hydrox/Simet LIQ 30 ML UDC PO PRN (21:24)
[2022-07-11] MEDS: Nicotine Lozenge mini 4 MG LOZNG.MINI MT PRN ×3 (05:44→21:15)
[2022-07-11] MEDS: Al Hydrox/Mg Hydrox/Simet LIQ 30 ML UDC PO PRN ×2 (05:44→21:15)
[2022-07-11 05:50] LABS: ABS Eosinophils 0.1 10^3/ul (0-0.6); ABS Lymphocytes 1.9 10^3/ul (1.0-4.8); ABS Monocytes 0.2 10^3/ul (0-0.8); ABS Neutrophils 2.5 10^3/ul (1.5-7.7); Eosinophil % 2.1 %; Hematocrit 26 % (35-47); Hemoglobin 8.4 g/dL (12.0-16.0); Lymphocyte % 40.5 %; Mean Corpuscular HGB Conc 32 g/dL (31-36); Mean Corpuscular Hemoglobin 35 pg (27-31); Mean Corpuscular Volume 109 fL (80-97); Mean Platelet Volume 8.5 fL (7.4-10.4); Platelet Count 186 10^3/uL (150-450); Red Blood Count 2.39 10^6 /uL (3.70-4.87); Red Cell Distribution Width 15 % (10-15); White Blood Count 4.8 10^3/uL (3.5-10.8)
[2022-07-11 06:16] LABS: Creatinine, Serum 0.67 mg/dL (0.51-0.95); Magnesium 1.9 mg/dL (1.9-2.7); Potassium 3.8 mmol/L (3.5-5.0); eGFR CKD-EPI 110.5 (>60)
[2022-07-11] MEDS ORDERED: Magnesium Sulfate 2 gm BAG 2 GM/50 ML BAG IVPB ONE (07:25)
[2022-07-11] MEDS: Multivitamins/Minerals TAB PO SCH (08:06)
[2022-07-11] MEDS: Potassium Chlor 20 meq TAB.ER PO SCH (08:06)
[2022-07-11] MEDS: Pantoprazole VIAL 40 MG VIAL IV SCH ×2 (08:07→21:15)
[2022-07-11] MEDS: CMCS: FLUTICAS/UMECLI/VILANT 200-62.5-25 MDI (NF) INH SCH (08:32)
[2022-07-11] MEDS ORDERED: NS 0.9% 500 ml BAG 500 ML IV ONE (10:42)
[2022-07-11] MEDS: Ondansetron 4 mg VIAL 2 MG/ML 2 ml VIAL IV PRN (11:19)
[2022-07-11] MEDS: NS 0.9% 1000 ml BAG 1,000 ML IV SCH ×2 (11:49→21:54)
[2022-07-11 13:33] LABS: Hepatitis B Surface Ab Not Immune (Immune)
[2022-07-11] MEDS: Enoxaparin 40 MG/0.4 ML SYR SUBCUT SCH (21:16)
[2022-07-12] MEDS: Nicotine Lozenge mini 4 MG LOZNG.MINI MT PRN ×2 (05:51→12:22)
[2022-07-12] MEDS: Al Hydrox/Mg Hydrox/Simet LIQ 30 ML UDC PO PRN (05:52)
[2022-07-12 07:10] LABS: Calcium 7.1 mg/dL (8.6-10.3); Creatinine, Serum 0.7 mg/dL (0.51-0.95); Potassium 3.8 mmol/L (3.5-5.0); eGFR CKD-EPI 109.3 (>60)
[2022-07-12] MEDS: CMCS: FLUTICAS/UMECLI/VILANT 200-62.5-25 MDI (NF) INH SCH (07:57)
[2022-07-12] MEDS: Ondansetron 4 mg VIAL 2 MG/ML 2 ml VIAL IV PRN (09:02)
[2022-07-12] MEDS: Pantoprazole VIAL 40 MG VIAL IV SCH (09:02)
[2022-07-12] MEDS: Multivitamins/Minerals TAB PO SCH (09:02)
[2022-07-12] MEDS: Potassium Chlor 20 meq TAB.ER PO SCH (09:11)
[2022-07-12 11:38] VITALS: BP 111/81
[2022-07-14 12:13] LABS: Ceruloplasmin 14.2 mg/dL
[2022-07-15 15:15] LABS: Mitochondria M2 Antibody 0.4 U
[2022-07-16 12:57] LABS: Pancreatic Elastase Feces 408 mcg/g
[2022-07-16 14:56] LABS: Percent Fat 14 % fat (< 20)
[2022-07-16 18:39] LABS: Calprotectin 84.9 mcg/g
== END 2022-07-12 13:45 | disposition home or self-care (01) | DRG 720 ==
LOC: EDHOLD 17:34 → ED 17:34 → SUATTDRO 23:27 → MED 07-09 01:38
PROVIDERS: ADMIT Internal Medicine; ATTEND Hospitalist
PROC: O.GIEGD (2022-07-10 12:15)

== ENCOUNTER 2022-08-02 01:32 | Inpatient (IN) ==
[2022-08-02] MEDS ORDERED: methylPREDNISolone SOD SUCC 125 mg 2 ML VIAL IV ONE (01:35)
[2022-08-02] MEDS ORDERED: Albuterol/Ipratropium NEB.SOL (2.5/0.5 MG) 3 ML NEB.SOLN INH ONE (01:35)
[2022-08-02 02:11] LABS: ABS Lymphocytes 1.7 10^3/ul (1.0-4.8); ABS Monocytes 0.8 10^3/ul (0-0.8); ABS Neutrophils 5.2 10^3/ul (1.5-7.7); Eosinophil % 0.3 %; Hematocrit 30 % (35-47); Hemoglobin 9.8 g/dL (12.0-16.0); Lymphocyte % 21.9 %; Mean Corpuscular HGB Conc 33 g/dL (31-36); Mean Corpuscular Hemoglobin 36 pg (27-31); Mean Corpuscular Volume 109 fL (80-97); Nucleated Red Blood Cells % 0.2; Platelet Count 300 10^3/uL (150-450); Red Blood Count 2.76 10^6 /uL (3.70-4.87); Red Cell Distribution Width 15 % (10-15); Venous Bicarbonate HCO3 20.8 mmol/L (24-28); White Blood Count 7.8 10^3/uL (3.5-10.8)
[2022-08-02 02:12] LABS: PCO2 Arterial 24 mmHg (35-45); PO2 Arterial 154 mmHg (80-100)
[2022-08-02] MEDS ORDERED: NS 0.9% 1000 ml BAG 1,000 ML IV ONE ×2 (02:12→03:00)
[2022-08-02 02:15] LABS: INR 1.27 (0.88-1.18)
[2022-08-02 02:34] LABS: High Sens Troponin Baseline 9 pg/mL (<15)
[2022-08-02 02:51] LABS: ALT 21 U/L (7-52); Albumin/Globulin Ratio 0.6 (1-3); Alcohol, S < 13 mg/dL (<13); Alkaline Phosphatase 376 U/L (35-149); Blood Urea Nitrogen 7 mg/dL (6-24); CO2 Carbon Dioxide 20 mmol/L (22-32); Calcium 7.9 mg/dL (8.6-10.3); Chloride 108 mmol/L (101-111); Creatinine, Serum 1.59 mg/dL (0.51-0.95); Globulin 3.2 g/dL (2-4); Glucose 121 mg/dL (70-100); Magnesium 1.8 mg/dL (1.9-2.7); Sodium 143 mmol/L (135-145); Total Protein 5.2 g/dL (6.4-8.9); eGFR CKD-EPI 40.8 (>60)
[2022-08-02] MEDS ORDERED: Lorazepam PYXIS KEY PRN ×2 (03:00→05:43)
[2022-08-02] MEDS ORDERED: Thiamine 100 MG/ML 2 ml VIAL 100 MG, Folic Acid IV 1 MG, Multiple Vitamin IV ADULT 10 M... IV ONE (03:00)
[2022-08-02] MEDS ORDERED: LORazepam 2 mg VIAL 1 ml IV PUSH ONE (03:00)
[2022-08-02 03:06] LABS: TSH Ultra Thyroid Stim Horm 1.88 mcIU/mL (0.34-5.60)
[2022-08-02 03:23] LABS: AST 43 U/L (13-39); Anion Gap 15 mmol/L (2-11); Potassium 3.5 mmol/L (3.5-5.0)
[2022-08-02 04:01] LABS: Urine Appearance Clear; Urine Bilirubin Negative (Negative); Urine Blood Negative (Negative); Urine Color Amber; Urine Glucose Negative (Negative); Urine Ketones 1+ (Negative); Urine Nitrite Negative (Negative); Urine Protein 1+(30 mg/dL) (Negative); Urine Specific Gravity 1.016 (1.002-1.030); Urine Urobilinogen Positive (Negative)
[2022-08-02 04:03] LABS: Urine Bacteria Absent (Absent); Urine Red Blood Cell Trace(0-2/hpf) (Absent); Urine Squamous Epithelial Cell Present (Absent); Urine White Blood Cell Trace(0-5/hpf) (Absent)
[2022-08-02 04:04] LABS: High Sensitivity Troponin 1 Hr 7 pg/mL (<15)
[2022-08-02 04:21] LABS: Urine Benzodiazepine Screen None Detected (None Detect); Urine Cannabinoids Screen None Detected (None Detect); Urine Opiates Screen None Detected (None Detect)
[2022-08-02 04:46] LABS: Valproic Acid < 13.0 mcg/mL (50-100)
[2022-08-02] MEDS ORDERED: Iodixanol (CONTRAST) 320 MG/ML 100 ML SDV IV ONE (04:57)
[2022-08-02] MEDS ORDERED: Lactulose 30 ml UDC PO SCH (05:00)
[2022-08-02] MEDS ORDERED: Magnesium Sulfate IV 3 GM in NS 0.9% 100 ml BAG 100 ML IVPB ONE (05:35)
[2022-08-02] MEDS ORDERED: LORazepam 2 mg VIAL 1 ml IV PUSH PRN (05:43)
[2022-08-02] MEDS ORDERED: Lactated Ringers 1000 ml BAG 1,000 ML IV SCH (06:00)
[2022-08-02] MEDS ORDERED: Albuterol HFA INHALER 8 gm MDI INH PRN (06:01)
[2022-08-02] MEDS: Lactulose 300 ML for PR 200 GM/300 ML BTL PR SCH ×3 (06:05→13:36)
[2022-08-02 06:55] LABS: Folate 12.95 ng/mL (5.90-24.80)
[2022-08-02 07:59] LABS: % Iron Saturation 58 % (15-55); Iron 61 ug/dL (50-212); Total Iron Binding Capacity 105 mcg/dL (250-450); Transferrin < 75 mg/dL (203-362); Unsaturated Iron Binding 44 ug/dL
[2022-08-02] MEDS: CMCS: Acamprosate DR 333 mg TAB (NF) PO SCH ×3 (08:06→23:00)
[2022-08-02] MEDS: FLUTICAS/UMECLI/VILANT 200-62.5-25 MDI (NF) INH SCH (08:08)
[2022-08-02] MEDS ORDERED: Albumin Human 25% 25 GM/100 ML BTL IV ONE (08:39)
[2022-08-02 08:53] LABS: ALT 19 U/L (7-52); Albumin 1.9 g/dL (3.2-5.2); Albumin/Globulin Ratio 0.6 (1-3); Alkaline Phosphatase 352 U/L (35-149); Blood Urea Nitrogen 7 mg/dL (6-24); C Reactive Protein 26.27 mg/L (<8.01); CO2 Carbon Dioxide 19 mmol/L (22-32); Calcium 7.2 mg/dL (8.6-10.3); Chloride 110 mmol/L (101-111); Creatinine, Serum 1.34 mg/dL (0.51-0.95); Globulin 3.1 g/dL (2-4); Glucose 291 mg/dL (70-100); Sodium 142 mmol/L (135-145); eGFR CKD-EPI 50.1 (>60)
[2022-08-02] MEDS ORDERED: Pantoprazole VIAL 40 MG VIAL IV SCH (09:00)
[2022-08-02] MEDS ORDERED: cefTRIAXone 1 gm/50 mL D5W 1 GM/50 ML BAG IV SCH (09:00)
[2022-08-02] MEDS ORDERED: Thiamine 100 MG/ML 2 ml VIAL 500 MG in NS 0.9% 50 ML 50 ML IV SCH (09:00)
[2022-08-02] MEDS ORDERED: Folic Acid IV 1 MG in NS 0.9% 50 ML 50 ML IV ONE (09:01)
[2022-08-02 09:22] LABS: Anion Gap 13 mmol/L (2-11)
[2022-08-02] MEDS ORDERED: NS 0.9% 500 ml BAG 500 ML IV ONE (09:44)
[2022-08-02] MEDS ORDERED: Azithromycin 500 mg/250 ml NS 500 MG/250 ML BAG IVPB SCH (10:00)
[2022-08-02 10:14] LABS: Potassium Redraw 3.1 mmol/L (3.5-5.0)
[2022-08-02 10:19] LABS: AST Redraw 33 U/L (13-39)
[2022-08-02 10:37] LABS: Creatine Kinase 50 U/L (10-223)
[2022-08-02] MEDS: Enoxaparin 40 MG/0.4 ML SYR SUBCUT SCH (11:11)
[2022-08-02] MEDS: Thiamine IV 500 MG in NS 0.9% 250 ML (Wernicke-Korsakoff) IV SCH ×3 (11:14→21:07)
[2022-08-02] MEDS ORDERED: KCL 10 MEQ/50 ML IVPREMIX 10 MEQ/50 ML BAG IV SCH (12:00)
[2022-08-02 12:25] LABS: PCO2 Arterial 30 mmHg (35-45); PO2 Arterial 79 mmHg (80-100)
[2022-08-02] MEDS: Lactulose 30 ml UDC PO SCH ×4 (12:30→23:00)
[2022-08-02] MEDS: Ondansetron 4 mg VIAL 2 MG/ML 2 ml VIAL IV PRN (12:30)
[2022-08-02] MEDS: KCL 20 MEQ/100 ML IVPREMIX 20 MEQ/100 ML BAG IV SCH ×2 (14:02→17:14)
[2022-08-02] MEDS ORDERED: Dextrose 50% Syringe 50 ml 25 GM/50 ML SYRINGE IV PUSH PRN (14:31)
[2022-08-02 16:25] LABS: Urine Appearance Cloudy; Urine Bilirubin Negative (Negative); Urine Blood 1+ (Negative); Urine Color Amber; Urine Glucose 1+(50 mg/dL) (Negative); Urine Ketones Trace (Negative); Urine Nitrite Positive (Negative); Urine Protein 1+(30 mg/dL) (Negative); Urine Specific Gravity 1.047 (1.002-1.030); Urine Urobilinogen Negative (Negative)
[2022-08-02] MEDS ORDERED: Rocuronium 50 mg VIAL 10 mg/ml 5 ml VIAL (50 mg) ONE ×3 (16:30→16:40)
[2022-08-02] MEDS ORDERED: Succinylcholine 200 mg VIAL 20 mg/ml 10 ml VIAL (200 mg) ONE (16:30)
[2022-08-02 16:33] LABS: Urine Bacteria Absent (Absent); Urine Red Blood Cell 1+(3-5/hpf) (Absent); Urine Squamous Epithelial Cell Present (Absent); Urine Waxy Casts Present (Absent); Urine White Blood Cell Trace(0-5/hpf) (Absent)
[2022-08-02] MEDS ORDERED: Norepinephrine 16MCG/ML BAGD5W 4,000 MCG/250 ML BAG IV ONE (16:33)
[2022-08-02] MEDS ORDERED: Propofol 10 mg/ml 100 ML BTL 1,000 MG/100 ML BTL ONE (16:34)
[2022-08-02] MEDS ORDERED: Etomidate 40 mg/20 ml (2 MG/ML) 20 ml VIAL (40 mg) ONE (16:40)
[2022-08-02 16:59] LABS: Urine Benzodiazepine Screen None Detected (None Detect); Urine Cannabinoids Screen None Detected (None Detect); Urine Opiates Screen None Detected (None Detect)
[2022-08-02] MEDS ORDERED: fentaNYL INFUSION 50 mcg/mL VL 2,500 MCG/50 ML VIAL IV SCH (17:00)
[2022-08-02] MEDS: Chlorhexidine MOUTHWASH 0.12% 15 ML UDC SWISH SPIT SCH ×2 (17:32→21:06)
[2022-08-02 17:50] LABS: Albumin 2.2 g/dL (3.2-5.2); Albumin/Globulin Ratio 0.8 (1-3); Calcium 7.2 mg/dL (8.6-10.3); Creatinine, Serum 1.34 mg/dL (0.51-0.95); Globulin 2.8 g/dL (2-4); Total Bilirubin 1.3 mg/dL (0.2-1.0); eGFR CKD-EPI 50.1 (>60)
[2022-08-02] MEDS: Lactated Ringers 1000 ml BAG 1,000 ML IV SCH (18:40)
[2022-08-02] MEDS: Pantoprazole VIAL 40 MG VIAL IV SCH (21:06)
[2022-08-03] MEDS: Chlorhexidine MOUTHWASH 0.12% 15 ML UDC SWISH SPIT SCH ×6 (02:30→20:16)
[2022-08-03] MEDS: Lactated Ringers 1000 ml BAG 1,000 ML IV SCH (04:25)
[2022-08-03] MEDS: Lactulose 30 ml UDC PO SCH ×6 (04:29→20:16)
[2022-08-03] MEDS: Enoxaparin 40 MG/0.4 ML SYR SUBCUT SCH (04:32)
[2022-08-03] MEDS: Levothyroxine 100 MCG/5 ML VIAL IV SCH (05:52)
[2022-08-03 06:33] LABS: ABS Lymphocytes 1.8 10^3/ul (1.0-4.8); ABS Monocytes 0.6 10^3/ul (0-0.8); ABS Neutrophils 7.7 10^3/ul (1.5-7.7); Eosinophil % 0.1 %; Hematocrit 26 % (35-47); Hemoglobin 8.2 g/dL (12.0-16.0); Lymphocyte % 17.5 %; Mean Corpuscular HGB Conc 31 g/dL (31-36); Mean Corpuscular Hemoglobin 35 pg (27-31); Mean Corpuscular Volume 111 fL (80-97); Mean Platelet Volume 8.8 fL (7.4-10.4); Nucleated Red Blood Cells % 0.1; Platelet Count 214 10^3/uL (150-450); Red Blood Count 2.36 10^6 /uL (3.70-4.87); Red Cell Distribution Width 14 % (10-15); White Blood Count 10.1 10^3/uL (3.5-10.8)
[2022-08-03 07:02] LABS: Albumin 2.2 g/dL (3.2-5.2); Albumin/Globulin Ratio 0.8 (1-3); Calcium 7.5 mg/dL (8.6-10.3); Creatinine, Serum 1.34 mg/dL (0.51-0.95); Globulin 2.7 g/dL (2-4); Magnesium 2.5 mg/dL (1.9-2.7); Total Bilirubin 1.2 mg/dL (0.2-1.0); Total Protein 4.9 g/dL (6.4-8.9); eGFR CKD-EPI 50.1 (>60)
[2022-08-03] MEDS: FLUTICAS/UMECLI/VILANT 200-62.5-25 MDI (NF) INH SCH (08:15)
[2022-08-03] MEDS ORDERED: Thiamine 100 MG/ML 2 ml VIAL 100 MG in NS 0.9% 50 ML 50 ML IV SCH (09:00)
[2022-08-03] MEDS: CMCS: Acamprosate DR 333 mg TAB (NF) PO SCH ×2 (09:09→13:23)
[2022-08-03] MEDS: Pantoprazole VIAL 40 MG VIAL IV SCH ×2 (09:09→20:16)
[2022-08-03] MEDS: Thiamine IV 500 MG in NS 0.9% 250 ML (Wernicke-Korsakoff) IV SCH ×3 (09:09→23:15)
[2022-08-03] MEDS: cefTRIAXone 1 gm/50 mL D5W 1 GM/50 ML BAG IV SCH (09:09)
[2022-08-03] MEDS ORDERED: KCL 20 MEQ/100 ML IVPREMIX 20 MEQ/100 ML BAG IV ONE ×3 (10:14→17:52)
[2022-08-03] MEDS ORDERED: Potassium Chloride LIQUID 20 MEQ/15 ML LIQUID PO ONE ×2 (10:14→17:33)
[2022-08-03] MEDS: Azithromycin 500 mg/250 ml NS 500 MG/250 ML BAG IVPB SCH (10:15)
[2022-08-03] MEDS: Norepinephrine 16MCG/ML BAGD5W 4,000 MCG/250 ML BAG IV SCH (15:21)
[2022-08-03 15:57] LABS: Calcium 7.5 mg/dL (8.6-10.3); Creatinine, Serum 1.51 mg/dL (0.51-0.95); Magnesium 2.4 mg/dL (1.9-2.7); Potassium 3.8 mmol/L (3.5-5.0); eGFR CKD-EPI 43.4 (>60)
[2022-08-03 16:17] LABS: Acetaminophen < 15 mcg/mL
[2022-08-03] MEDS ORDERED: Furosemide 40 mg/4 ml IV VIAL IV ONE (17:33)
[2022-08-04] MEDS ORDERED: Metoclopramide 5 MG/ML VIAL (10 mg) IV SLOW PU ONE (00:21)
[2022-08-04] MEDS: Norepinephrine 16MCG/ML BAGD5W 4,000 MCG/250 ML BAG IV SCH ×3 (00:23→14:58)
[2022-08-04] MEDS: Chlorhexidine MOUTHWASH 0.12% 15 ML UDC SWISH SPIT SCH ×6 (00:30→21:26)
[2022-08-04] MEDS: Lactulose 30 ml UDC PO SCH ×4 (01:45→12:48)
[2022-08-04 04:30] LABS: ABS Monocytes 0.7 10^3/ul (0-0.8); ABS Neutrophils 9.7 10^3/ul (1.5-7.7); Eosinophil % 0.1 %; Hematocrit 28 % (35-47); Hemoglobin 8.5 g/dL (12.0-16.0); Lymphocyte % 22.1 %; Mean Corpuscular HGB Conc 31 g/dL (31-36); Mean Corpuscular Hemoglobin 34 pg (27-31); Mean Corpuscular Volume 111 fL (80-97); Nucleated Red Blood Cells % 0.1; Platelet Count 191 10^3/uL (150-450); Red Blood Count 2.49 10^6 /uL (3.70-4.87); Red Cell Distribution Width 15 % (10-15); White Blood Count 13.4 10^3/uL (3.5-10.8)
[2022-08-04] MEDS: Enoxaparin 40 MG/0.4 ML SYR SUBCUT SCH (04:53)
[2022-08-04] MEDS: Levothyroxine 100 MCG/5 ML VIAL IV SCH (04:53)
[2022-08-04 05:05] LABS: Albumin 2.1 g/dL (3.2-5.2); Albumin/Globulin Ratio 0.7 (1-3); Calcium 7.7 mg/dL (8.6-10.3); Creatinine, Serum 2.01 mg/dL (0.51-0.95); Magnesium 2.3 mg/dL (1.9-2.7); Total Bilirubin 1.4 mg/dL (0.2-1.0); Total Protein 5.1 g/dL (6.4-8.9); eGFR CKD-EPI 30.8 (>60)
[2022-08-04] MEDS: FLUTICAS/UMECLI/VILANT 200-62.5-25 MDI (NF) INH SCH (07:27)
[2022-08-04] MEDS ORDERED: Albuterol (2.5 MG) 0.5 % CONC 0.5 ML NEB.SOLN INH ONE (07:30)
[2022-08-04] MEDS ORDERED: Albuterol 2.5mg/3 ml (0.083%) NEB.SOLN INH ONE (07:35)
[2022-08-04] MEDS ORDERED: Rocuronium 50 mg VIAL 10 mg/ml 5 ml VIAL (50 mg) IV ONE (07:53)
[2022-08-04] MEDS ORDERED: Rocuronium 50 mg VIAL 10 mg/ml 5 ml VIAL (50 mg) ONE (07:59)
[2022-08-04] MEDS ORDERED: fentaNYL 100 mcg/2 ml 50 MCG/ML VIAL IV SLOW PU ONE (08:04)
[2022-08-04] MEDS ORDERED: fentaNYL 100 mcg/2 ml 50 MCG/ML VIAL ONE (08:06)
[2022-08-04] MEDS: cefTRIAXone 1 gm/50 mL D5W 1 GM/50 ML BAG IV SCH (08:52)
[2022-08-04] MEDS: Pantoprazole VIAL 40 MG VIAL IV SCH ×2 (09:00→21:27)
[2022-08-04] MEDS: Thiamine IV 500 MG in NS 0.9% 250 ML (Wernicke-Korsakoff) IV SCH ×3 (09:33→21:28)
[2022-08-04] MEDS: Azithromycin 500 mg/250 ml NS 500 MG/250 ML BAG IVPB SCH (10:23)
[2022-08-04] MEDS ORDERED: Lactated Ringers 1000 ml BAG 1,000 ML IV SCH (13:00)
[2022-08-04] MEDS ORDERED: Albuterol 2.5mg/3 ml (0.083%) NEB.SOLN INH SCH (13:00)
[2022-08-04] MEDS ORDERED: Iodixanol (CONTRAST) 320 MG/ML 100 ML SDV IV ONE (14:12)
[2022-08-04] MEDS: D5W 1000 ml BAG 1,000 ML IV SCH (15:05)
[2022-08-04] MEDS: Lactulose 300 ML for PR 200 GM/300 ML BTL PR SCH ×2 (16:29→23:19)
[2022-08-05] MEDS: Norepinephrine 16MCG/ML BAGD5W 4,000 MCG/250 ML BAG IV SCH (01:28)
[2022-08-05] MEDS: Chlorhexidine MOUTHWASH 0.12% 15 ML UDC SWISH SPIT SCH ×6 (01:29→21:09)
[2022-08-05] MEDS ORDERED: Phenylephrine IV 10 MG/ML 1 ml VIAL ONE (02:28)
[2022-08-05 05:08] LABS: Hematocrit 27 % (35-47); Hemoglobin 8.3 g/dL (12.0-16.0); Mean Corpuscular HGB Conc 31 g/dL (31-36); Mean Corpuscular Hemoglobin 34 pg (27-31); Mean Corpuscular Volume 111 fL (80-97); Mean Platelet Volume 9.6 fL (7.4-10.4); Platelet Count 121 10^3/uL (150-450); Red Blood Count 2.44 10^6 /uL (3.70-4.87); Red Cell Distribution Width 15 % (10-15); White Blood Count 15.7 10^3/uL (3.5-10.8)
[2022-08-05] MEDS: Levothyroxine 100 MCG/5 ML VIAL IV SCH (05:14)
[2022-08-05 05:25] LABS: Albumin 1.8 g/dL (3.2-5.2); Albumin/Globulin Ratio 0.7 (1-3); Calcium 7.5 mg/dL (8.6-10.3); Creatinine, Serum 2.3 mg/dL (0.51-0.95); Globulin 2.7 g/dL (2-4); Magnesium 2.2 mg/dL (1.9-2.7); Potassium 3.7 mmol/L (3.5-5.0); Total Bilirubin 1.1 mg/dL (0.2-1.0); Total Protein 4.5 g/dL (6.4-8.9); eGFR CKD-EPI 26.2 (>60)
[2022-08-05] MEDS: D5W 1000 ml BAG 1,000 ML IV SCH (06:12)
[2022-08-05] MEDS: FLUTICAS/UMECLI/VILANT 200-62.5-25 MDI (NF) INH SCH (07:46)
[2022-08-05 08:34] LABS: ABS Eosinophils 0.1 10^3/ul (0-0.6); ABS Lymphocytes 2.5 10^3/ul (1.0-4.8); ABS Monocytes 0.6 10^3/ul (0-0.8); ABS Neutrophils 12.5 10^3/ul (1.5-7.7); Eosinophil % 0.4 %; Lymphocyte % 15.8 %; Nucleated Red Blood Cells % 0.1
[2022-08-05] MEDS: Lactulose 300 ML for PR 200 GM/300 ML BTL PR SCH ×3 (08:43→20:49)
[2022-08-05] MEDS: Pantoprazole VIAL 40 MG VIAL IV SCH ×2 (08:43→21:13)
[2022-08-05] MEDS: cefTRIAXone 1 gm/50 mL D5W 1 GM/50 ML BAG IV SCH (08:43)
[2022-08-05] MEDS: Enoxaparin 40 MG/0.4 ML SYR SUBCUT SCH (08:43)
[2022-08-05] MEDS: Thiamine IV 500 MG in NS 0.9% 250 ML (Wernicke-Korsakoff) IV SCH ×3 (09:20→21:14)
[2022-08-05] MEDS: Azithromycin 500 mg/250 ml NS 500 MG/250 ML BAG IVPB SCH (09:41)
[2022-08-05] MEDS: Cefepime 1 GM in Dextrose 1 GM/50 ML BAG IV SCH (13:44)
[2022-08-05] MEDS: KCL 20 MEQ/100 ML IVPREMIX 20 MEQ/100 ML BAG IV SCH ×2 (13:44→15:40)
[2022-08-05] MEDS: metroNIDAZOLE IV 500 MG/100ML 500 MG/100 ML BAG IVPB SCH (13:44)
[2022-08-05] MEDS ORDERED: Albumin Human 5% 12.5 GM/250 ML BTL IV ONE (14:43)
[2022-08-05] MEDS ORDERED: Octreotide Acetate 50 MCG in NS 0.9% 50 ML 50 ML IV ONE (14:45)
[2022-08-05] MEDS ORDERED: Lactated Ringers 1000 ml BAG 1,000 ML IV ONE (14:53)
[2022-08-05] MEDS: VASOPRESSIN IVPREMIX BTL 40 UNIT/100 ML BTL IV SCH (15:51)
[2022-08-05] MEDS: Octreotide Acetate 500 MCG in NS 0.9% 100 ml BAG 100 ML IV SCH (16:14)
[2022-08-05] MEDS: Furosemide 20 mg/2 ml IV VIAL IV SCH (16:56)
[2022-08-06] MEDS: Lactulose 300 ML for PR 200 GM/300 ML BTL PR SCH ×4 (00:21→18:27)
[2022-08-06] MEDS: metroNIDAZOLE IV 500 MG/100ML 500 MG/100 ML BAG IVPB SCH ×2 (00:50→14:37)
[2022-08-06] MEDS: Octreotide Acetate 500 MCG in NS 0.9% 100 ml BAG 100 ML IV SCH ×3 (00:53→21:50)
[2022-08-06] MEDS: Chlorhexidine MOUTHWASH 0.12% 15 ML UDC SWISH SPIT SCH ×6 (02:25→21:09)
[2022-08-06 05:05] LABS: Calcium 7.4 mg/dL (8.6-10.3); Creatinine, Serum 2.23 mg/dL (0.51-0.95); Magnesium 1.8 mg/dL (1.9-2.7); Phosphorus 1.4 mg/dL (2.5-5.0); Potassium 3.6 mmol/L (3.5-5.0); eGFR CKD-EPI 27.2 (>60)
[2022-08-06] MEDS ORDERED: Magnesium Sulfate 2 gm BAG 2 GM/50 ML BAG IVPB ONE (05:12)
[2022-08-06 05:26] LABS: ABS Eosinophils 0.2 10^3/ul (0-0.6); ABS Lymphocytes 1.4 10^3/ul (1.0-4.8); ABS Monocytes 0.7 10^3/ul (0-0.8); ABS Neutrophils 10.6 10^3/ul (1.5-7.7); Eosinophil % 1.3 %; Hematocrit 25 % (35-47); Hemoglobin 7.7 g/dL (12.0-16.0); Lymphocyte % 11.1 %; Mean Corpuscular HGB Conc 31 g/dL (31-36); Mean Corpuscular Hemoglobin 34 pg (27-31); Mean Corpuscular Volume 111 fL (80-97); Mean Platelet Volume 10.2 fL (7.4-10.4); Nucleated Red Blood Cells % 0.1; Platelet Count 97 10^3/uL (150-450); Red Blood Count 2.24 10^6 /uL (3.70-4.87); Red Cell Distribution Width 15 % (10-15); White Blood Count 12.9 10^3/uL (3.5-10.8)
[2022-08-06] MEDS: Levothyroxine 100 MCG/5 ML VIAL IV SCH (05:40)
[2022-08-06] MEDS ORDERED: Potassium Phosphate IV 15 MMOL in NS 0.9% 250 ml 250 ML IVPB ONE ×2 (06:00→12:00)
[2022-08-06] MEDS: FLUTICAS/UMECLI/VILANT 200-62.5-25 MDI (NF) INH SCH (07:07)
[2022-08-06] MEDS ORDERED: Lactated Ringers 1000 ml BAG 1,000 ML IV ONE ×2 (08:13→08:14)
[2022-08-06] MEDS ORDERED: Albumin Human 5% 12.5 GM/250 ML BTL IV ONE (08:14)
[2022-08-06] MEDS: Furosemide 20 mg/2 ml IV VIAL IV SCH (09:31)
[2022-08-06] MEDS: Pantoprazole VIAL 40 MG VIAL IV SCH ×2 (09:31→21:34)
[2022-08-06] MEDS: Enoxaparin 40 MG/0.4 ML SYR SUBCUT SCH (09:31)
[2022-08-06] MEDS: Thiamine IV 500 MG in NS 0.9% 250 ML (Wernicke-Korsakoff) IV SCH ×3 (09:33→21:34)
[2022-08-06] MEDS: VASOPRESSIN IVPREMIX BTL 40 UNIT/100 ML BTL IV SCH (11:54)
[2022-08-06] MEDS: Cefepime 1 GM in Dextrose 1 GM/50 ML BAG IV SCH (13:24)
[2022-08-06] MEDS: D5W 1000 ml BAG 1,000 ML IV SCH ×2 (13:30→23:06)
[2022-08-06 16:50] LABS: Calcium 7.4 mg/dL (8.6-10.3); Creatinine, Serum 1.96 mg/dL (0.51-0.95); Potassium 3.1 mmol/L (3.5-5.0); eGFR CKD-EPI 31.8 (>60)
[2022-08-06] MEDS: KCL 20 MEQ/100 ML IVPREMIX 20 MEQ/100 ML BAG IV SCH ×3 (18:27→23:05)
[2022-08-07] MEDS: Lactulose 300 ML for PR 200 GM/300 ML BTL PR SCH ×4 (00:37→18:09)
[2022-08-07] MEDS: metroNIDAZOLE IV 500 MG/100ML 500 MG/100 ML BAG IVPB SCH ×2 (00:59→13:33)
[2022-08-07] MEDS: Chlorhexidine MOUTHWASH 0.12% 15 ML UDC SWISH SPIT SCH ×6 (01:39→20:54)
[2022-08-07 02:39] LABS: Calcium 7.1 mg/dL (8.6-10.3); Creatinine, Serum 1.77 mg/dL (0.51-0.95); Potassium 3.4 mmol/L (3.5-5.0); eGFR CKD-EPI 35.9 (>60)
[2022-08-07] MEDS ORDERED: Dexmedetomidine 1,000 MCG in NS 0.9% 250 ml 240 ML IV SCH (03:00)
[2022-08-07] MEDS ORDERED: KCL 20 MEQ/100 ML IVPREMIX 20 MEQ/100 ML BAG IV ONE (03:32)
[2022-08-07 03:35] LABS: Magnesium 1.9 mg/dL (1.9-2.7); Phosphorus 2.4 mg/dL (2.5-5.0)
[2022-08-07 06:08] LABS: PCO2 Arterial 40 mmHg (35-45); PO2 Arterial 78 mmHg (80-100)
[2022-08-07] MEDS: Levothyroxine 100 MCG/5 ML VIAL IV SCH (06:17)
[2022-08-07 07:25] LABS: ABS Eosinophils 0.4 10^3/ul (0-0.6); ABS Monocytes 0.6 10^3/ul (0-0.8); ABS Neutrophils 9.8 10^3/ul (1.5-7.7); Eosinophil % 2.8 %; Hematocrit 22 % (35-47); Hemoglobin 6.7 g/dL (12.0-16.0); Lymphocyte % 15.4 %; Mean Corpuscular HGB Conc 30 g/dL (31-36); Mean Corpuscular Hemoglobin 34 pg (27-31); Mean Corpuscular Volume 111 fL (80-97); Mean Platelet Volume 10.3 fL (7.4-10.4); Nucleated Red Blood Cells % 0.1; Platelet Count 95 10^3/uL (150-450); Red Blood Count 1.99 10^6 /uL (3.70-4.87); Red Cell Distribution Width 14 % (10-15); White Blood Count 12.8 10^3/uL (3.5-10.8)
[2022-08-07 07:45] LABS: Albumin/Globulin Ratio 0.8 (1-3); Calcium 7.1 mg/dL (8.6-10.3); Creatinine, Serum 1.57 mg/dL (0.51-0.95); Globulin 2.4 g/dL (2-4); Magnesium 1.9 mg/dL (1.9-2.7); Potassium 3.4 mmol/L (3.5-5.0); Total Bilirubin 1.8 mg/dL (0.2-1.0); Total Protein 4.4 g/dL (6.4-8.9); eGFR CKD-EPI 41.5 (>60)
[2022-08-07] MEDS ORDERED: Potassium Phosphate IV 15 MMOL in NS 0.9% 250 ml 250 ML IVPB ONE (07:50)
[2022-08-07] MEDS ORDERED: Magnesium Sulfate 2 gm BAG 2 GM/50 ML BAG IVPB ONE (07:50)
[2022-08-07] MEDS: Octreotide Acetate 500 MCG in NS 0.9% 100 ml BAG 100 ML IV SCH ×2 (08:39→18:56)
[2022-08-07] MEDS ORDERED: Thiamine 100 MG/ML 2 ml VIAL (200 mg) IV SCH (09:00)
[2022-08-07 09:10] LABS: Hematocrit 22 % (35-47); Hemoglobin 6.9 g/dL (12.0-16.0)
[2022-08-07] MEDS: Pantoprazole VIAL 40 MG VIAL IV SCH ×2 (09:31→20:54)
[2022-08-07] MEDS: Enoxaparin 40 MG/0.4 ML SYR SUBCUT SCH (09:32)
[2022-08-07] MEDS: FLUTICAS/UMECLI/VILANT 200-62.5-25 MDI (NF) INH SCH (09:43)
[2022-08-07] MEDS ORDERED: Furosemide 40 mg/4 ml IV VIAL IV ONE (10:03)
[2022-08-07] MEDS: fentaNYL 100 mcg/2 ml 50 MCG/ML VIAL IV SLOW PU PRN ×2 (10:07→13:21)
[2022-08-07] MEDS: Thiamine IV 100 MG in NS 0.9% 50 ML Q24H IV SCH (11:28)
[2022-08-07] MEDS: Cefepime 1 GM in Dextrose 1 GM/50 ML BAG IV SCH (13:05)
[2022-08-07] MEDS: VASOPRESSIN IVPREMIX BTL 40 UNIT/100 ML BTL IV SCH (14:22)
[2022-08-07 15:04] LABS: Calcium 7.1 mg/dL (8.6-10.3); Creatinine, Serum 1.41 mg/dL (0.51-0.95); Potassium 3.3 mmol/L (3.5-5.0); eGFR CKD-EPI 47.2 (>60)
[2022-08-07 17:59] LABS: Hematocrit 34 % (35-47); Hemoglobin 10.7 g/dL (12.0-16.0)
[2022-08-07 18:22] LABS: Creatinine, Serum 1.35 mg/dL (0.51-0.95); Potassium 3.3 mmol/L (3.5-5.0)
[2022-08-07 18:23] LABS: Albumin 2.2 g/dL (3.2-5.2); Albumin/Globulin Ratio 0.9 (1-3); Calcium 7.3 mg/dL (8.6-10.3); Globulin 2.5 g/dL (2-4); Total Bilirubin 3.2 mg/dL (0.2-1.0); Total Protein 4.7 g/dL (6.4-8.9); eGFR CKD-EPI 49.7 (>60)
[2022-08-07] MEDS: KCL 20 MEQ/100 ML IVPREMIX 20 MEQ/100 ML BAG IV SCH ×2 (21:01→22:06)
[2022-08-08] MEDS: fentaNYL 100 mcg/2 ml 50 MCG/ML VIAL IV SLOW PU PRN ×2 (00:18→06:46)
[2022-08-08] MEDS: Chlorhexidine MOUTHWASH 0.12% 15 ML UDC SWISH SPIT SCH ×3 (00:19→09:36)
[2022-08-08] MEDS: Lactulose 300 ML for PR 200 GM/300 ML BTL PR SCH ×2 (00:19→06:46)
[2022-08-08] MEDS: metroNIDAZOLE IV 500 MG/100ML 500 MG/100 ML BAG IVPB SCH ×2 (00:41→13:30)
[2022-08-08] MEDS: Octreotide Acetate 500 MCG in NS 0.9% 100 ml BAG 100 ML IV SCH ×2 (04:39→15:25)
[2022-08-08] MEDS: Levothyroxine 100 MCG/5 ML VIAL IV SCH (04:48)
[2022-08-08 05:13] LABS: ABS Lymphocytes 1.1 10^3/ul (1.0-4.8); ABS Monocytes 0.7 10^3/ul (0-0.8); ABS Neutrophils 12.3 10^3/ul (1.5-7.7); Eosinophil % 0.1 %; Hematocrit 31 % (35-47); Hemoglobin 10.2 g/dL (12.0-16.0); Lymphocyte % 7.8 %; Mean Corpuscular HGB Conc 33 g/dL (31-36); Mean Corpuscular Hemoglobin 32 pg (27-31); Mean Corpuscular Volume 98 fL (80-97); Phosphorus 2.1 mg/dL (2.5-5.0); Platelet Count 94 10^3/uL (150-450); Potassium 3.5 mmol/L (3.5-5.0); Red Blood Count 3.15 10^6 /uL (3.70-4.87); Red Cell Distribution Width 21 % (10-15); White Blood Count 14.2 10^3/uL (3.5-10.8)
[2022-08-08] MEDS ORDERED: Potassium Phosphate IV 15 MMOL in NS 0.9% 250 ml 250 ML IVPB ONE (06:00)
[2022-08-08] MEDS: FLUTICAS/UMECLI/VILANT 200-62.5-25 MDI (NF) INH SCH (07:52)
[2022-08-08] MEDS: Thiamine IV 100 MG in NS 0.9% 50 ML Q24H IV SCH (09:36)
[2022-08-08] MEDS: Pantoprazole VIAL 40 MG VIAL IV SCH ×2 (09:36→20:11)
[2022-08-08] MEDS: Lactulose 30 ml UDC NG TUBE SCH ×3 (13:27→20:11)
[2022-08-08] MEDS: Cefepime 1 GM in Dextrose 1 GM/50 ML BAG IV SCH (13:30)
[2022-08-09] MEDS: Octreotide Acetate 500 MCG in NS 0.9% 100 ml BAG 100 ML IV SCH ×3 (01:46→22:43)
[2022-08-09] MEDS: metroNIDAZOLE IV 500 MG/100ML 500 MG/100 ML BAG IVPB SCH ×2 (01:48→13:08)
[2022-08-09 04:38] LABS: ABS Eosinophils 0.3 10^3/ul (0-0.6); ABS Lymphocytes 1.9 10^3/ul (1.0-4.8); ABS Monocytes 0.7 10^3/ul (0-0.8); ABS Neutrophils 10.8 10^3/ul (1.5-7.7); Eosinophil % 2.2 %; Hematocrit 29 % (35-47); Hemoglobin 9.3 g/dL (12.0-16.0); Mean Corpuscular HGB Conc 32 g/dL (31-36); Mean Corpuscular Hemoglobin 32 pg (27-31); Mean Corpuscular Volume 98 fL (80-97); Mean Platelet Volume 9.3 fL (7.4-10.4); Nucleated Red Blood Cells % 0.1; Platelet Count 94 10^3/uL (150-450); Red Blood Count 2.95 10^6 /uL (3.70-4.87); Red Cell Distribution Width 21 % (10-15); White Blood Count 13.8 10^3/uL (3.5-10.8)
[2022-08-09 05:11] LABS: Magnesium 1.9 mg/dL (1.9-2.7)
[2022-08-09] MEDS: Levothyroxine 100 MCG/5 ML VIAL IV SCH (05:44)
[2022-08-09] MEDS ORDERED: Magnesium Sulfate IV 1GM/100ML 1 GM/100 ML BAG IV ONE (06:09)
[2022-08-09] MEDS: Pantoprazole VIAL 40 MG VIAL IV SCH ×2 (07:53→20:51)
[2022-08-09] MEDS: Lactulose 30 ml UDC NG TUBE SCH ×4 (07:53→20:51)
[2022-08-09] MEDS ORDERED: guaiFENesin 100 mg/5 ml LIQ unit dose cup PO PRN (09:15)
[2022-08-09 09:37] LABS: Calcium 7.5 mg/dL (8.6-10.3); Creatinine, Serum 1.09 mg/dL (0.51-0.95); Potassium 3.1 mmol/L (3.5-5.0); eGFR CKD-EPI 64.2 (>60)
[2022-08-09] MEDS ORDERED: Potassium Chloride LIQUID 20 MEQ/15 ML LIQUID PO ONE (11:09)
[2022-08-09] MEDS: FLUTICAS/UMECLI/VILANT 200-62.5-25 MDI (NF) INH SCH (11:19)
[2022-08-09] MEDS: KCL 20 MEQ/100 ML IVPREMIX 20 MEQ/100 ML BAG IV SCH ×2 (12:11→14:23)
[2022-08-09] MEDS: D5W 1000 ml BAG 1,000 ML IV SCH (12:19)
[2022-08-09] MEDS: Cefepime 1 GM in Dextrose 1 GM/50 ML BAG IV SCH (12:20)
[2022-08-09 15:55] LABS: Calcium 7.7 mg/dL (8.6-10.3); Creatinine, Serum 1.02 mg/dL (0.51-0.95); Potassium 3.7 mmol/L (3.5-5.0); eGFR CKD-EPI 69.6 (>60)
[2022-08-09 19:03] LABS: Calcium 7.8 mg/dL (8.6-10.3); Creatinine, Serum 1.05 mg/dL (0.51-0.95); Potassium 3.6 mmol/L (3.5-5.0); eGFR CKD-EPI 67.2 (>60)
[2022-08-09] MEDS: Lidocaine PATCH 5% PATCH TRANSDERM SCH (20:35)
[2022-08-10 00:27] LABS: Calcium 7.4 mg/dL (8.6-10.3); Creatinine, Serum 0.93 mg/dL (0.51-0.95); Potassium 3.2 mmol/L (3.5-5.0); eGFR CKD-EPI 77.7 (>60)
[2022-08-10] MEDS: metroNIDAZOLE IV 500 MG/100ML 500 MG/100 ML BAG IVPB SCH ×2 (01:24→13:40)
[2022-08-10] MEDS: D5W 1000 ml BAG 1,000 ML IV SCH ×2 (02:24→15:50)
[2022-08-10] MEDS: KCL 20 MEQ/100 ML IVPREMIX 20 MEQ/100 ML BAG IV SCH ×2 (03:44→04:55)
[2022-08-10 04:07] LABS: Hematocrit 28 % (35-47); Hemoglobin 8.9 g/dL (12.0-16.0); Mean Corpuscular HGB Conc 32 g/dL (31-36); Mean Corpuscular Hemoglobin 32 pg (27-31); Mean Corpuscular Volume 100 fL (80-97); Mean Platelet Volume 9.8 fL (7.4-10.4); Platelet Count 74 10^3/uL (150-450); Red Blood Count 2.81 10^6 /uL (3.70-4.87); Red Cell Distribution Width 22 % (10-15); White Blood Count 11.6 10^3/uL (3.5-10.8)
[2022-08-10 04:09] LABS: Calcium 7.3 mg/dL (8.6-10.3); Creatinine, Serum 0.9 mg/dL (0.51-0.95); Magnesium 1.9 mg/dL (1.9-2.7); Potassium 3.2 mmol/L (3.5-5.0); eGFR CKD-EPI 80.8 (>60)
[2022-08-10 05:18] LABS: Anisocytosis 1+
[2022-08-10 05:19] LABS: ABS Eosinophils 0.4 10^3/ul (0-0.6); ABS Lymphocytes 2.4 10^3/ul (1.0-4.8); ABS Monocytes 0.7 10^3/ul (0-0.8); ABS Neutrophils 8.1 10^3/ul (1.5-7.7); Eosinophil % 3.6 %; Lymphocyte % 20.4 %
[2022-08-10] MEDS ORDERED: Potassium Chloride LIQUID 20 MEQ/15 ML LIQUID PO ONE (05:24)
[2022-08-10] MEDS ORDERED: Magnesium Sulfate 2 gm BAG 2 GM/50 ML BAG IVPB ONE (05:39)
[2022-08-10] MEDS ORDERED: Potassium Phosphate IV 15 MMOL in NS 0.9% 250 ml 250 ML IVPB ONE (05:40)
[2022-08-10 06:15] LABS: Albumin 1.8 g/dL (3.2-5.2); Albumin/Globulin Ratio 0.8 (1-3); Direct Bilirubin 1.7 mg/dL (0.03-0.18); Globulin 2.4 g/dL (2-4); Indirect Bilirubin 1.2 mg/dL (0.3-1.0); Total Bilirubin 2.9 mg/dL (0.2-1.0); Total Protein 4.2 g/dL (6.4-8.9)
[2022-08-10] MEDS: Levothyroxine 100 MCG/5 ML VIAL IV SCH (06:35)
[2022-08-10] MEDS: FLUTICAS/UMECLI/VILANT 200-62.5-25 MDI (NF) INH SCH (07:20)
[2022-08-10] MEDS: Octreotide Acetate 500 MCG in NS 0.9% 100 ml BAG 100 ML IV SCH (07:36)
[2022-08-10] MEDS: Lactulose 30 ml UDC NG TUBE SCH ×4 (08:58→21:16)
[2022-08-10] MEDS: Lidocaine PATCH 5% PATCH TRANSDERM SCH (08:59)
[2022-08-10] MEDS: Pantoprazole VIAL 40 MG VIAL IV SCH ×2 (08:59→21:16)
[2022-08-10] MEDS: Cefepime 1 GM in Dextrose 1 GM/50 ML BAG IV SCH (12:37)
[2022-08-10 14:38] LABS: Calcium 7.5 mg/dL (8.6-10.3); Creatinine, Serum 0.86 mg/dL (0.51-0.95); Potassium 4.7 mmol/L (3.5-5.0); eGFR CKD-EPI 85.4 (>60)
[2022-08-10 15:15] LABS: HIT ELISA < 0.050 OD (<0.400); Heparin PF4 Antibody Interp Negative (Negative)
[2022-08-10 23:57] LABS: Calcium 7.5 mg/dL (8.6-10.3); Creatinine, Serum 0.75 mg/dL (0.51-0.95); Potassium 4.2 mmol/L (3.5-5.0); eGFR CKD-EPI 100.6 (>60)
[2022-08-11] MEDS: metroNIDAZOLE IV 500 MG/100ML 500 MG/100 ML BAG IVPB SCH (00:54)
[2022-08-11] MEDS: Lidocaine PATCH 5% PATCH TRANSDERM SCH ×2 (01:20→08:20)
[2022-08-11] MEDS: D5W 1000 ml BAG 1,000 ML IV SCH (04:41)
[2022-08-11 04:44] LABS: Hematocrit 27 % (35-47); Hemoglobin 8.7 g/dL (12.0-16.0); Mean Corpuscular HGB Conc 32 g/dL (31-36); Mean Corpuscular Hemoglobin 32 pg (27-31); Mean Corpuscular Volume 99 fL (80-97); Mean Platelet Volume 10.1 fL (7.4-10.4); Platelet Count 59 10^3/uL (150-450); Red Blood Count 2.76 10^6 /uL (3.70-4.87); Red Cell Distribution Width 21 % (10-15); White Blood Count 11.5 10^3/uL (3.5-10.8)
[2022-08-11 05:05] LABS: ABS Basophils 0.1 10^3/ul (0-0.2); ABS Eosinophils 0.3 10^3/ul (0-0.6); ABS Lymphocytes 2.8 10^3/ul (1.0-4.8); ABS Neutrophils 7.2 10^3/ul (1.5-7.7); Anisocytosis 2+; Eosinophil % 2.9 %; Lymphocyte % 24.6 %; Nucleated Red Blood Cells % 0.1
[2022-08-11 05:06] LABS: Macrocytosis 1+; Polychromasia 1+
[2022-08-11 05:08] LABS: Blood Urea Nitrogen 6 mg/dL (6-24); CO2 Carbon Dioxide 25 mmol/L (22-32); Calcium 7.2 mg/dL (8.6-10.3); Creatinine, Serum 0.73 mg/dL (0.51-0.95); Glucose 171 mg/dL (70-100); Phosphorus 1.4 mg/dL (2.5-5.0); Potassium 4.1 mmol/L (3.5-5.0); Sodium 141 mmol/L (135-145); eGFR CKD-EPI 103.9 (>60)
[2022-08-11] MEDS ORDERED: Potassium Phosphate IV 15 MMOL in NS 0.9% 250 ml 250 ML IVPB ONE (05:09)
[2022-08-11 05:42] LABS: Chloride 117 mmol/L (101-111)
[2022-08-11] MEDS: FLUTICAS/UMECLI/VILANT 200-62.5-25 MDI (NF) INH SCH (07:06)
[2022-08-11] MEDS: Lactulose 30 ml UDC NG TUBE SCH ×3 (08:20→21:51)
[2022-08-11] MEDS: Pantoprazole VIAL 40 MG VIAL IV SCH ×2 (08:20→21:49)
[2022-08-11 11:41] LABS: Platelet Count 66 10^3/ul (150-450)
[2022-08-11 11:49] LABS: Activated Partial Thrombo Time 33.9 seconds (26.0-38.0); INR 1.86 (0.88-1.18)
[2022-08-11 13:13] LABS: Schistocytes ABSENT
[2022-08-12 06:19] LABS: Hematocrit 28 % (35-47); Mean Corpuscular HGB Conc 32 g/dL (31-36); Mean Corpuscular Hemoglobin 32 pg (27-31); Mean Corpuscular Volume 102 fL (80-97); Mean Platelet Volume 10.4 fL (7.4-10.4); Platelet Count 59 10^3/uL (150-450); Red Blood Count 2.78 10^6 /uL (3.70-4.87); Red Cell Distribution Width 20 % (10-15); White Blood Count 9.2 10^3/uL (3.5-10.8)
[2022-08-12 06:48] LABS: Calcium 7.4 mg/dL (8.6-10.3); Creatinine, Serum 0.6 mg/dL (0.51-0.95); Magnesium 1.7 mg/dL (1.9-2.7); Phosphorus 1.9 mg/dL (2.5-5.0); Potassium 4.6 mmol/L (3.5-5.0); eGFR CKD-EPI 113.4 (>60)
[2022-08-12 06:56] LABS: Anisocytosis 1+
[2022-08-12 06:57] LABS: Macrocytosis 1+
[2022-08-12 06:58] LABS: ABS Eosinophils 0.3 10^3/ul (0-0.6); ABS Lymphocytes 2.1 10^3/ul (1.0-4.8); ABS Monocytes 0.9 10^3/ul (0-0.8); ABS Neutrophils 6.4 10^3/ul (1.5-7.7); Eosinophil % 2.6 %; Lymphocyte % 21.7 %; Nucleated Red Blood Cells % 0.2
[2022-08-12] MEDS: FLUTICAS/UMECLI/VILANT 200-62.5-25 MDI (NF) INH SCH (07:29)
[2022-08-12] MEDS ORDERED: Magnesium Sulfate 2 gm BAG 2 GM/50 ML BAG IVPB ONE (07:35)
[2022-08-12] MEDS: Lactulose 30 ml UDC NG TUBE SCH (08:17)
[2022-08-12] MEDS: Pantoprazole VIAL 40 MG VIAL IV SCH ×2 (08:18→21:20)
[2022-08-12] MEDS ORDERED: Potassium Phosphate IV 5 MMOL in NS 0.9% 250 ml 250 ML IVPB ONE (08:30)
[2022-08-12] MEDS ORDERED: Potassium Phosphate IV 10 MMOL in NS 0.9% 250 ml 250 ML IVPB ONE (09:48)
[2022-08-12] MEDS: Lidocaine PATCH 5% PATCH TRANSDERM SCH (10:20)
[2022-08-12] MEDS ORDERED: Phytonadione IV (Adult) 5 MG in NS 0.9% 50 ML 50 ML IV ONE (16:48)
[2022-08-13 06:59] LABS: ABS Basophils 0.1 10^3/ul (0-0.2); ABS Eosinophils 0.2 10^3/ul (0-0.6); ABS Lymphocytes 2.3 10^3/ul (1.0-4.8); ABS Monocytes 0.8 10^3/ul (0-0.8); ABS Neutrophils 5.9 10^3/ul (1.5-7.7); Eosinophil % 2.2 %; Hematocrit 27 % (35-47); Hemoglobin 8.7 g/dL (12.0-16.0); Lymphocyte % 24.8 %; Mean Corpuscular HGB Conc 33 g/dL (31-36); Mean Corpuscular Hemoglobin 33 pg (27-31); Mean Corpuscular Volume 101 fL (80-97); Mean Platelet Volume 10.2 fL (7.4-10.4); Nucleated Red Blood Cells % 0.1; Platelet Count 76 10^3/uL (150-450); Red Blood Count 2.63 10^6 /uL (3.70-4.87); Red Cell Distribution Width 20 % (10-15); White Blood Count 9.2 10^3/uL (3.5-10.8)
[2022-08-13] MEDS: FLUTICAS/UMECLI/VILANT 200-62.5-25 MDI (NF) INH SCH (07:03)
[2022-08-13] MEDS: Albuterol 2.5mg/3 ml (0.083%) NEB.SOLN INH PRN (07:09)
[2022-08-13 07:11] LABS: Blood Urea Nitrogen 4 mg/dL (6-24); CO2 Carbon Dioxide 25 mmol/L (22-32); Calcium 7.5 mg/dL (8.6-10.3); Creatinine, Serum 0.69 mg/dL (0.51-0.95); Glucose 158 mg/dL (70-100); Magnesium 1.9 mg/dL (1.9-2.7); Phosphorus 1.8 mg/dL (2.5-5.0); Potassium 4.1 mmol/L (3.5-5.0); Sodium 137 mmol/L (135-145); eGFR CKD-EPI 109.7 (>60)
[2022-08-13 07:12] LABS: Chloride 112 mmol/L (101-111)
[2022-08-13] MEDS ORDERED: Magnesium Sulfate IV 1GM/100ML 1 GM/100 ML BAG IV ONE (07:30)
[2022-08-13] MEDS ORDERED: Potassium Phosphate IV 5 MMOL in NS 0.9% 250 ml 250 ML IVPB ONE (08:30)
[2022-08-13] MEDS: Lidocaine PATCH 5% PATCH TRANSDERM SCH (09:18)
[2022-08-13] MEDS: Lactulose 30 ml UDC PO SCH (09:19)
[2022-08-13] MEDS: Pantoprazole VIAL 40 MG VIAL IV SCH ×2 (09:20→22:28)
[2022-08-13 10:45] LABS: INR 1.26 (0.88-1.18)
[2022-08-13] MEDS: Nystatin TOP POWDER 15 GM BTL TOPICAL SCH ×2 (17:11→22:28)
[2022-08-13] MEDS ORDERED: HYDROmorphone 0.5 MG/0.5 ML SYRINGE IV SLOW PU PRN (21:56)
[2022-08-14] MEDS: FLUTICAS/UMECLI/VILANT 200-62.5-25 MDI (NF) INH SCH (07:08)
[2022-08-14 07:17] LABS: Blood Urea Nitrogen 3 mg/dL (6-24); CO2 Carbon Dioxide 24 mmol/L (22-32); Calcium 7.4 mg/dL (8.6-10.3); Creatinine, Serum 0.54 mg/dL (0.51-0.95); Glucose 81 mg/dL (70-100); Potassium 4.1 mmol/L (3.5-5.0); Sodium 140 mmol/L (135-145); eGFR CKD-EPI 116.4 (>60)
[2022-08-14 07:28] LABS: Hematocrit 26 % (35-47); Hemoglobin 8.4 g/dL (12.0-16.0); Mean Corpuscular HGB Conc 32 g/dL (31-36); Mean Corpuscular Hemoglobin 33 pg (27-31); Mean Corpuscular Volume 101 fL (80-97); Mean Platelet Volume 9.9 fL (7.4-10.4); Platelet Count 80 10^3/uL (150-450); Red Blood Count 2.56 10^6 /uL (3.70-4.87); Red Cell Distribution Width 20 % (10-15); White Blood Count 8.9 10^3/uL (3.5-10.8)
[2022-08-14 07:34] LABS: INR 1.27 (0.88-1.18)
[2022-08-14 07:37] LABS: Anion Gap 3 mmol/L (2-11); Chloride 113 mmol/L (101-111)
[2022-08-14 10:04] LABS: Polychromasia 1+
[2022-08-14 10:05] LABS: Anisocytosis 2+; Macrocytosis 1+
[2022-08-14 10:06] LABS: ABS Basophils 0.1 10^3/ul (0-0.2); ABS Eosinophils 0.2 10^3/ul (0-0.6); ABS Lymphocytes 1.8 10^3/ul (1.0-4.8); ABS Monocytes 0.6 10^3/ul (0-0.8); ABS Neutrophils 6.2 10^3/ul (1.5-7.7); Lymphocyte % 20.6 %; Nucleated Red Blood Cells % 0.1
[2022-08-14] MEDS: Nystatin TOP POWDER 15 GM BTL TOPICAL SCH ×3 (10:23→20:15)
[2022-08-14] MEDS: Lactulose 30 ml UDC PO SCH (10:23)
[2022-08-14] MEDS: Pantoprazole VIAL 40 MG VIAL IV SCH ×2 (10:23→20:12)
[2022-08-14] MEDS: Lidocaine PATCH 5% PATCH TRANSDERM SCH (10:26)
[2022-08-14 10:32] LABS: Corrected Retic Count 3.1 % (0.5-1.5); Hematocrit for Retic CNT 26 % (35-47); Immature Retic Fraction 0.56; RBC Retic Count 2.57 10^6/uL (3.70-4.87)
[2022-08-14] MEDS ORDERED: Lactated Ringers 1000 ml BAG 1,000 ML IV SCH (12:00)
[2022-08-14] MEDS ORDERED: Dextran 70/Hypromellose Tears Eye Drops 15 ml BTL (for Artificials Tears) BOTH EYES PRN (12:02)
[2022-08-14 12:30] LABS: Folate 6.77 ng/mL (5.90-24.80)
[2022-08-14 12:31] LABS: Vitamin B12 > 1450 pg/mL (180-914)
[2022-08-14] MEDS ORDERED: Rocuronium 50 mg VIAL 10 mg/ml 5 ml VIAL (50 mg) ONE (17:21)
[2022-08-14] MEDS ORDERED: Phenylephrine 40 mcg/mL 10mL (400mcg) SYRINGE ONE (17:24)
[2022-08-14] MEDS ORDERED: Propofol 10 MG/ML 20 ML BTL ONE ×2 (17:54→18:11)
[2022-08-14] MEDS ORDERED: Phytonadione Oral Solution 5 MG/25 ML UDC PO ONE (18:08)
[2022-08-14] MEDS ORDERED: Lidocaine 2% PF 5 ML VIAL ONE (18:11)
[2022-08-14] MEDS ORDERED: fentaNYL 100 mcg/2 ml 50 MCG/ML VIAL ONE (18:11)
[2022-08-14 18:45] LABS: ADAMTS13 Activity Assay 63 % (>/=70)
[2022-08-15 07:24] LABS: INR 1.22 (0.88-1.18)
[2022-08-15] MEDS: FLUTICAS/UMECLI/VILANT 200-62.5-25 MDI (NF) INH SCH (07:33)
[2022-08-15 07:47] LABS: Blood Urea Nitrogen 2 mg/dL (6-24); CO2 Carbon Dioxide 25 mmol/L (22-32); Calcium 7.7 mg/dL (8.6-10.3); Chloride 108 mmol/L (101-111); Creatinine, Serum 0.53 mg/dL (0.51-0.95); Glucose 92 mg/dL (70-100); Sodium 136 mmol/L (135-145); eGFR CKD-EPI 116.9 (>60)
[2022-08-15 07:50] LABS: Anion Gap 3 mmol/L (2-11)
[2022-08-15 08:41] LABS: Direct Bilirubin Redraw 2.9 mg/dL (0.03-0.18); Magnesium 1.6 mg/dL (1.9-2.7); Phosphorus 2.1 mg/dL (2.5-5.0); Potassium Redraw 4.1 mmol/L (3.5-5.0)
[2022-08-15 08:41] LABS: ABS Basophils 0.1 10^3/ul (0-0.2); ABS Eosinophils 0.2 10^3/ul (0-0.6); ABS Lymphocytes 1.7 10^3/ul (1.0-4.8); ABS Monocytes 0.6 10^3/ul (0-0.8); ABS Neutrophils 5.4 10^3/ul (1.5-7.7); Eosinophil % 2.4 %; Hematocrit 29 % (35-47); Hemoglobin 9.2 g/dL (12.0-16.0); Lymphocyte % 21.6 %; Mean Corpuscular HGB Conc 32 g/dL (31-36); Mean Corpuscular Hemoglobin 33 pg (27-31); Mean Corpuscular Volume 102 fL (80-97); Mean Platelet Volume 10.7 fL (7.4-10.4); Nucleated Red Blood Cells % 0.1; Platelet Count 120 10^3/uL (150-450); Red Blood Count 2.82 10^6 /uL (3.70-4.87); Red Cell Distribution Width 21 % (10-15)
[2022-08-15] MEDS ORDERED: Magnesium Sulfate IV 3 GM in NS 0.9% 100 ml BAG 100 ML IVPB ONE (08:44)
[2022-08-15] MEDS: Lactulose 30 ml UDC PO SCH (10:24)
[2022-08-15] MEDS: Pantoprazole VIAL 40 MG VIAL IV SCH ×2 (10:25→19:52)
[2022-08-15] MEDS: Lidocaine PATCH 5% PATCH TRANSDERM SCH (10:26)
[2022-08-15] MEDS: Nystatin TOP POWDER 15 GM BTL TOPICAL SCH ×3 (10:54→19:52)
[2022-08-15] MEDS: Enoxaparin 40 MG/0.4 ML SYR SUBCUT SCH (17:28)
[2022-08-16 06:57] LABS: ABS Lymphocytes 1.2 10^3/ul (1.0-4.8); ABS Monocytes 0.3 10^3/ul (0-0.8); Hematocrit 25 % (35-47); Hemoglobin 8.4 g/dL (12.0-16.0); Lymphocyte % 14.4 %; Mean Corpuscular HGB Conc 33 g/dL (31-36); Mean Corpuscular Hemoglobin 33 pg (27-31); Mean Corpuscular Volume 100 fL (80-97); Mean Platelet Volume 9.9 fL (7.4-10.4); Platelet Count 122 10^3/uL (150-450); Red Blood Count 2.55 10^6 /uL (3.70-4.87); Red Cell Distribution Width 22 % (10-15); White Blood Count 8.5 10^3/uL (3.5-10.8)
[2022-08-16 07:05] LABS: Calcium 7.5 mg/dL (8.6-10.3); Creatinine, Serum 0.52 mg/dL (0.51-0.95); Direct Bilirubin 2.5 mg/dL (0.03-0.18); Indirect Bilirubin 1.6 mg/dL (0.3-1.0); Potassium 4.4 mmol/L (3.5-5.0); Total Bilirubin 4.1 mg/dL (0.2-1.0); eGFR CKD-EPI 117.4 (>60)
[2022-08-16] MEDS: FLUTICAS/UMECLI/VILANT 200-62.5-25 MDI (NF) INH SCH (07:48)
[2022-08-16] MEDS: Nystatin TOP POWDER 15 GM BTL TOPICAL SCH ×3 (08:14→21:29)
[2022-08-16] MEDS: Lidocaine PATCH 5% PATCH TRANSDERM SCH (08:14)
[2022-08-16] MEDS: Lactulose 30 ml UDC PO SCH (08:15)
[2022-08-16] MEDS: Pantoprazole VIAL 40 MG VIAL IV SCH ×2 (08:15→21:28)
[2022-08-16] MEDS: Multivitamins/Minerals TAB PO SCH (08:15)
[2022-08-16 11:56] LABS: Hepatitis B Surface Antigen Nonreactive (Nonreactive)
[2022-08-16 13:32] LABS: Hepatitis C Antibody Reactive (Negative)
[2022-08-16] MEDS ORDERED: Al Hydrox/Mg Hydrox/Simet LIQ 30 ML UDC PO ONE (17:49)
[2022-08-16] MEDS: Enoxaparin 40 MG/0.4 ML SYR SUBCUT SCH (18:36)
[2022-08-17] MEDS: Al Hydrox/Mg Hydrox/Simet LIQ 30 ML UDC PO PRN ×2 (05:05→13:56)
[2022-08-17] MEDS: Pantoprazole VIAL 40 MG VIAL IV SCH ×2 (07:49→20:12)
[2022-08-17] MEDS: Multivitamins/Minerals TAB PO SCH (07:49)
[2022-08-17] MEDS: Ondansetron 4 mg VIAL 2 MG/ML 2 ml VIAL IV PRN ×2 (07:49→17:08)
[2022-08-17] MEDS: Lactulose 30 ml UDC PO SCH (07:50)
[2022-08-17] MEDS: Lidocaine PATCH 5% PATCH TRANSDERM SCH (07:50)
[2022-08-17] MEDS: Nystatin TOP POWDER 15 GM BTL TOPICAL SCH ×3 (07:54→20:12)
[2022-08-17] MEDS: FLUTICAS/UMECLI/VILANT 200-62.5-25 MDI (NF) INH SCH (08:04)
[2022-08-17 08:12] LABS: ABS Monocytes 0.6 10^3/ul (0-0.8); ABS Neutrophils 6.2 10^3/ul (1.5-7.7); Corrected Retic Count 2.6 % (0.5-1.5); Eosinophil % 0.1 %; Hematocrit 26 % (35-47); Hematocrit for Retic CNT 26 % (35-47); Hemoglobin 8.6 g/dL (12.0-16.0); Immature Retic Fraction 0.57; Lymphocyte % 22.4 %; Mean Corpuscular HGB Conc 32 g/dL (31-36); Mean Corpuscular Hemoglobin 33 pg (27-31); Mean Corpuscular Volume 102 fL (80-97); Mean Platelet Volume 10.6 fL (7.4-10.4); Nucleated Red Blood Cells % 0.1; Platelet Count 157 10^3/uL (150-450); RBC Retic Count 2.58 10^6/uL (3.70-4.87); Red Blood Count 2.58 10^6 /uL (3.70-4.87); Red Cell Distribution Width 22 % (10-15); White Blood Count 8.8 10^3/uL (3.5-10.8)
[2022-08-17 08:15] LABS: Calcium 7.6 mg/dL (8.6-10.3); Creatinine, Serum 0.59 mg/dL (0.51-0.95); Direct Bilirubin 3.1 mg/dL (0.03-0.18); Indirect Bilirubin 1.8 mg/dL (0.3-1.0); Magnesium 1.7 mg/dL (1.9-2.7); Total Bilirubin 4.9 mg/dL (0.2-1.0); eGFR CKD-EPI 113.9 (>60)
[2022-08-17 14:11] LABS: Albumin/Globulin Ratio 0.7 (1-3); Globulin 2.9 g/dL (2-4); Total Protein 4.9 g/dL (6.4-8.9)
[2022-08-17] MEDS: Enoxaparin 40 MG/0.4 ML SYR SUBCUT SCH (17:08)
[2022-08-18] MEDS: Al Hydrox/Mg Hydrox/Simet LIQ 30 ML UDC PO PRN ×2 (01:15→09:19)
[2022-08-18 06:31] LABS: ABS Basophils 0.1 10^3/ul (0-0.2); ABS Lymphocytes 1.3 10^3/ul (1.0-4.8); ABS Monocytes 0.3 10^3/ul (0-0.8); ABS Neutrophils 4.9 10^3/ul (1.5-7.7); Corrected Retic Count 2.5 % (0.5-1.5); Hematocrit 26 % (35-47); Hematocrit for Retic CNT 26 % (35-47); Hemoglobin 8.6 g/dL (12.0-16.0); Immature Retic Fraction 0.58; Lymphocyte % 19.7 %; Mean Corpuscular HGB Conc 33 g/dL (31-36); Mean Corpuscular Hemoglobin 34 pg (27-31); Mean Corpuscular Volume 102 fL (80-97); Mean Platelet Volume 9.9 fL (7.4-10.4); Nucleated Red Blood Cells % 0.1; Platelet Count 176 10^3/uL (150-450); RBC Retic Count 2.57 10^6/uL (3.70-4.87); Red Blood Count 2.57 10^6 /uL (3.70-4.87); Red Cell Distribution Width 22 % (10-15); White Blood Count 6.5 10^3/uL (3.5-10.8)
[2022-08-18 06:49] LABS: Albumin 2.2 g/dL (3.2-5.2); Calcium 7.8 mg/dL (8.6-10.3); Creatinine, Serum 0.64 mg/dL (0.51-0.95); Potassium 4.2 mmol/L (3.5-5.0); Total Protein 5.2 g/dL (6.4-8.9); eGFR CKD-EPI 111.7 (>60)
[2022-08-18 06:50] LABS: Albumin/Globulin Ratio 0.7 (1-3); Direct Bilirubin 3.5 mg/dL (0.03-0.18); Indirect Bilirubin 2.2 mg/dL (0.3-1.0); Total Bilirubin 5.7 mg/dL (0.2-1.0)
[2022-08-18] MEDS: FLUTICAS/UMECLI/VILANT 200-62.5-25 MDI (NF) INH SCH (08:14)
[2022-08-18] MEDS: Lidocaine PATCH 5% PATCH TRANSDERM SCH (09:18)
[2022-08-18] MEDS: Pantoprazole VIAL 40 MG VIAL IV SCH ×2 (09:19→21:59)
[2022-08-18] MEDS: Lactulose 30 ml UDC PO SCH (09:19)
[2022-08-18] MEDS: Multivitamins/Minerals TAB PO SCH (09:20)
[2022-08-18] MEDS: Nystatin TOP POWDER 15 GM BTL TOPICAL SCH ×3 (09:32→21:59)
[2022-08-18 09:39] LABS: Magnesium 1.9 mg/dL (1.9-2.7)
[2022-08-18] MEDS: Enoxaparin 40 MG/0.4 ML SYR SUBCUT SCH (18:32)
[2022-08-19] MEDS: Al Hydrox/Mg Hydrox/Simet LIQ 30 ML UDC PO PRN (06:23)
[2022-08-19 06:56] LABS: INR 0.96 (0.88-1.18)
[2022-08-19 07:03] LABS: Immature Retic Fraction 0.54; RBC Retic Count 2.39 10^6/uL (3.70-4.87); Red Blood Count 2.39 10^6 /uL (3.70-4.87)
[2022-08-19 07:09] LABS: Corrected Retic Count 2.3 % (0.5-1.5); Hematocrit 24 % (35-47); Hematocrit for Retic CNT 24 % (35-47); Mean Corpuscular HGB Conc 33 g/dL (31-36); Mean Corpuscular Hemoglobin 34 pg (27-31); Mean Corpuscular Volume 103 fL (80-97); Platelet Count 184 10^3/uL (150-450); Red Cell Distribution Width 21 % (10-15); White Blood Count 5.6 10^3/uL (3.5-10.8)
[2022-08-19 07:34] LABS: Albumin 2.2 g/dL (3.2-5.2); Albumin/Globulin Ratio 0.8 (1-3); Calcium 7.7 mg/dL (8.6-10.3); Creatinine, Serum 0.64 mg/dL (0.51-0.95); Direct Bilirubin 3.2 mg/dL (0.03-0.18); Globulin 2.9 g/dL (2-4); Indirect Bilirubin 2.1 mg/dL (0.3-1.0); Potassium 4.1 mmol/L (3.5-5.0); Total Bilirubin 5.3 mg/dL (0.2-1.0); Total Protein 5.1 g/dL (6.4-8.9); eGFR CKD-EPI 111.7 (>60)
[2022-08-19 07:53] LABS: Anisocytosis 2+
[2022-08-19 08:10] LABS: ABS Lymphocytes 1.1 10^3/ul (1.0-4.8); ABS Neutrophils 4.4 10^3/ul (1.5-7.7)
[2022-08-19] MEDS: Pantoprazole VIAL 40 MG VIAL IV SCH ×2 (08:23→20:20)
[2022-08-19] MEDS: Lidocaine PATCH 5% PATCH TRANSDERM SCH (08:23)
[2022-08-19] MEDS: Multivitamins/Minerals TAB PO SCH (08:24)
[2022-08-19] MEDS: Nystatin TOP POWDER 15 GM BTL TOPICAL SCH ×3 (08:25→20:21)
[2022-08-19] MEDS: Lactulose 30 ml UDC PO SCH (08:25)
[2022-08-19] MEDS: FLUTICAS/UMECLI/VILANT 200-62.5-25 MDI (NF) INH SCH (08:39)
[2022-08-19] MEDS ORDERED: Morphine 2 MG/ML SYRINGE IV ONE (14:37)
[2022-08-19] MEDS: Enoxaparin 40 MG/0.4 ML SYR SUBCUT SCH (17:38)
[2022-08-20 06:33] LABS: Hematocrit 24 % (35-47); Hemoglobin 7.8 g/dL (12.0-16.0); Mean Corpuscular HGB Conc 33 g/dL (31-36); Mean Corpuscular Hemoglobin 34 pg (27-31); Mean Corpuscular Volume 104 fL (80-97); Mean Platelet Volume 9.7 fL (7.4-10.4); Platelet Count 216 10^3/uL (150-450); Red Blood Count 2.28 10^6 /uL (3.70-4.87); Red Cell Distribution Width 21 % (10-15); White Blood Count 5.2 10^3/uL (3.5-10.8)
[2022-08-20 07:07] LABS: Albumin 2.2 g/dL (3.2-5.2); Albumin/Globulin Ratio 0.8 (1-3); Calcium 7.5 mg/dL (8.6-10.3); Creatinine, Serum 0.59 mg/dL (0.51-0.95); Direct Bilirubin 2.8 mg/dL (0.03-0.18); Globulin 2.6 g/dL (2-4); Total Bilirubin 4.8 mg/dL (0.2-1.0); Total Protein 4.8 g/dL (6.4-8.9); eGFR CKD-EPI 113.9 (>60)
[2022-08-20] MEDS: FLUTICAS/UMECLI/VILANT 200-62.5-25 MDI (NF) INH SCH (07:50)
[2022-08-20] MEDS: Pantoprazole VIAL 40 MG VIAL IV SCH ×2 (09:29→23:03)
[2022-08-20] MEDS: Multivitamins/Minerals TAB PO SCH (09:33)
[2022-08-20] MEDS: Lactulose 30 ml UDC PO SCH (09:35)
[2022-08-20] MEDS: Lidocaine PATCH 5% PATCH TRANSDERM SCH (09:35)
[2022-08-20] MEDS: Nystatin TOP POWDER 15 GM BTL TOPICAL SCH ×3 (09:57→23:03)
[2022-08-20 12:49] LABS: Magnesium 1.7 mg/dL (1.9-2.7)
[2022-08-20] MEDS: Al Hydrox/Mg Hydrox/Simet LIQ 30 ML UDC PO PRN (14:57)
[2022-08-20] MEDS: Enoxaparin 40 MG/0.4 ML SYR SUBCUT SCH (17:13)
[2022-08-20] MEDS ORDERED: Magnesium Sulfate 2 gm BAG 2 GM/50 ML BAG IVPB ONE (17:44)
[2022-08-21 06:44] LABS: Hematocrit 22 % (35-47); Hemoglobin 7.2 g/dL (12.0-16.0); Mean Corpuscular HGB Conc 33 g/dL (31-36); Mean Corpuscular Hemoglobin 33 pg (27-31); Mean Corpuscular Volume 102 fL (80-97); Mean Platelet Volume 9.1 fL (7.4-10.4); Platelet Count 230 10^3/uL (150-450); Red Blood Count 2.17 10^6 /uL (3.70-4.87); Red Cell Distribution Width 20 % (10-15); White Blood Count 4.6 10^3/uL (3.5-10.8)
[2022-08-21 07:17] LABS: Albumin 2.2 g/dL (3.2-5.2); Albumin/Globulin Ratio 0.9 (1-3); Calcium 7.5 mg/dL (8.6-10.3); Creatinine, Serum 0.49 mg/dL (0.51-0.95); Direct Bilirubin 2.1 mg/dL (0.03-0.18); Globulin 2.5 g/dL (2-4); Indirect Bilirubin 1.8 mg/dL (0.3-1.0); Magnesium 1.9 mg/dL (1.9-2.7); Potassium 3.7 mmol/L (3.5-5.0); Total Bilirubin 3.9 mg/dL (0.2-1.0); Total Protein 4.7 g/dL (6.4-8.9); eGFR CKD-EPI 119.1 (>60)
[2022-08-21] MEDS: FLUTICAS/UMECLI/VILANT 200-62.5-25 MDI (NF) INH SCH (07:46)
[2022-08-21] MEDS: Multivitamins/Minerals TAB PO SCH (09:27)
[2022-08-21] MEDS: Pantoprazole VIAL 40 MG VIAL IV SCH ×2 (09:27→22:14)
[2022-08-21] MEDS: Lactulose 30 ml UDC PO SCH (09:28)
[2022-08-21] MEDS: Lidocaine PATCH 5% PATCH TRANSDERM SCH (09:28)
[2022-08-21] MEDS: Nystatin TOP POWDER 15 GM BTL TOPICAL SCH ×3 (09:35→22:20)
[2022-08-21] MEDS: Enoxaparin 40 MG/0.4 ML SYR SUBCUT SCH (17:19)
[2022-08-21] MEDS: Al Hydrox/Mg Hydrox/Simet LIQ 30 ML UDC PO PRN (19:30)
[2022-08-22 06:11] LABS: Hematocrit 22 % (35-47); Hemoglobin 7.3 g/dL (12.0-16.0); Mean Corpuscular HGB Conc 33 g/dL (31-36); Mean Corpuscular Hemoglobin 33 pg (27-31); Mean Corpuscular Volume 102 fL (80-97); Mean Platelet Volume 8.5 fL (7.4-10.4); Platelet Count 273 10^3/uL (150-450); Red Blood Count 2.19 10^6 /uL (3.70-4.87); Red Cell Distribution Width 21 % (10-15); White Blood Count 6.4 10^3/uL (3.5-10.8)
[2022-08-22 06:45] LABS: Albumin 2.2 g/dL (3.2-5.2); Calcium 7.2 mg/dL (8.6-10.3); Creatinine, Serum 0.51 mg/dL (0.51-0.95); Globulin 2.3 g/dL (2-4); Indirect Bilirubin 1.6 mg/dL (0.3-1.0); Magnesium 1.8 mg/dL (1.9-2.7); Potassium 3.6 mmol/L (3.5-5.0); Total Bilirubin 3.6 mg/dL (0.2-1.0); Total Protein 4.5 g/dL (6.4-8.9)
[2022-08-22] MEDS ORDERED: Magnesium Sulfate IV 1GM/100ML 1 GM/100 ML BAG IV ONE (07:17)
[2022-08-22] MEDS: FLUTICAS/UMECLI/VILANT 200-62.5-25 MDI (NF) INH SCH (07:56)
[2022-08-22] MEDS: Lactulose 30 ml UDC PO SCH (10:15)
[2022-08-22] MEDS: Lidocaine PATCH 5% PATCH TRANSDERM SCH (10:16)
[2022-08-22] MEDS: Pantoprazole VIAL 40 MG VIAL IV SCH ×2 (10:16→23:53)
[2022-08-22] MEDS: Multivitamins/Minerals TAB PO SCH (10:16)
[2022-08-22] MEDS: Nystatin TOP POWDER 15 GM BTL TOPICAL SCH ×3 (10:17→23:40)
[2022-08-22] MEDS: Enoxaparin 40 MG/0.4 ML SYR SUBCUT SCH (23:53)
[2022-08-23 06:17] LABS: ABS Lymphocytes 1.2 10^3/ul (1.0-4.8); ABS Monocytes 0.3 10^3/ul (0-0.8); Eosinophil % 0.1 %; Hematocrit 26 % (35-47); Hemoglobin 8.3 g/dL (12.0-16.0); Mean Corpuscular HGB Conc 32 g/dL (31-36); Mean Corpuscular Hemoglobin 33 pg (27-31); Mean Corpuscular Volume 104 fL (80-97); Mean Platelet Volume 8.5 fL (7.4-10.4); Nucleated Red Blood Cells % 0.1; Platelet Count 313 10^3/uL (150-450); Red Blood Count 2.52 10^6 /uL (3.70-4.87); Red Cell Distribution Width 21 % (10-15); White Blood Count 6.6 10^3/uL (3.5-10.8)
[2022-08-23 06:44] LABS: Albumin 2.4 g/dL (3.2-5.2); Albumin/Globulin Ratio 0.9 (1-3); Calcium 7.5 mg/dL (8.6-10.3); Creatinine, Serum 0.48 mg/dL (0.51-0.95); Direct Bilirubin 1.8 mg/dL (0.03-0.18); Globulin 2.7 g/dL (2-4); Indirect Bilirubin 1.7 mg/dL (0.3-1.0); Magnesium 1.9 mg/dL (1.9-2.7); Potassium 3.5 mmol/L (3.5-5.0); Total Bilirubin 3.5 mg/dL (0.2-1.0); Total Protein 5.1 g/dL (6.4-8.9); eGFR CKD-EPI 119.7 (>60)
[2022-08-23] MEDS: FLUTICAS/UMECLI/VILANT 200-62.5-25 MDI (NF) INH SCH (07:39)
[2022-08-23] MEDS ORDERED: Magnesium Sulfate IV 1GM/100ML 1 GM/100 ML BAG IV ONE (08:51)
[2022-08-23] MEDS: Lidocaine PATCH 5% PATCH TRANSDERM SCH (09:31)
[2022-08-23] MEDS: Lactulose 30 ml UDC PO SCH (09:31)
[2022-08-23] MEDS: Pantoprazole VIAL 40 MG VIAL IV SCH ×2 (09:31→21:43)
[2022-08-23] MEDS: Nystatin TOP POWDER 15 GM BTL TOPICAL SCH ×3 (09:31→21:36)
[2022-08-23] MEDS: Multivitamins/Minerals TAB PO SCH (09:32)
[2022-08-23 16:26] LABS: Hepatitis B Surface Antigen Nonreactive (Nonreactive)
[2022-08-23 16:31] LABS: Hepatitis A Ab IgM Negative (Negative); Hepatitis B Core IgM Nonreactive (Nonreactive)
[2022-08-23] MEDS: Enoxaparin 40 MG/0.4 ML SYR SUBCUT SCH (17:30)
[2022-08-23 21:12] LABS: Hepatitis C Antibody Reactive (Negative)
[2022-08-24 06:46] LABS: Immature Retic Fraction 0.51; RBC Retic Count 2.17 10^6/uL (3.70-4.87); Red Blood Count 2.17 10^6 /uL (3.70-4.87)
[2022-08-24] MEDS: FLUTICAS/UMECLI/VILANT 200-62.5-25 MDI (NF) INH SCH (07:20)
[2022-08-24] MEDS: Albuterol 2.5mg/3 ml (0.083%) NEB.SOLN INH PRN (07:22)
[2022-08-24 08:15] LABS: Corrected Retic Count 1.7 % (0.5-1.5); Eosinophil % 0.1 %; Hematocrit 22 % (35-47); Hematocrit for Retic CNT 22 % (35-47); Hemoglobin 7.2 g/dL (12.0-16.0); Lymphocyte % 18.9 %; Mean Corpuscular HGB Conc 32 g/dL (31-36); Mean Corpuscular Hemoglobin 33 pg (27-31); Mean Corpuscular Volume 103 fL (80-97); Platelet Count 313 10^3/uL (150-450); Red Cell Distribution Width 20 % (10-15); White Blood Count 7.5 10^3/uL (3.5-10.8)
[2022-08-24 08:17] LABS: ABS Basophils 0.1 10^3/ul (0-0.2); ABS Lymphocytes 1.4 10^3/ul (1.0-4.8); ABS Monocytes 0.4 10^3/ul (0-0.8); ABS Neutrophils 5.6 10^3/ul (1.5-7.7)
[2022-08-24 08:18] LABS: Nucleated Red Blood Cells % 0.1
[2022-08-24 08:19] LABS: Anisocytosis 1+; Macrocytosis 1+
[2022-08-24 08:28] LABS: Calcium 7.3 mg/dL (8.6-10.3); Creatinine, Serum 0.47 mg/dL (0.51-0.95); Magnesium 1.8 mg/dL (1.9-2.7); Potassium 3.7 mmol/L (3.5-5.0); eGFR CKD-EPI 120.3 (>60)
[2022-08-24] MEDS: Lidocaine PATCH 5% PATCH TRANSDERM SCH (09:35)
[2022-08-24] MEDS: Lactulose 30 ml UDC PO SCH (09:35)
[2022-08-24] MEDS: Pantoprazole VIAL 40 MG VIAL IV SCH (09:35)
[2022-08-24] MEDS: Multivitamins/Minerals TAB PO SCH (09:36)
[2022-08-24] MEDS ORDERED: Magnesium Sulfate 2 gm BAG 2 GM/50 ML BAG IVPB ONE (09:55)
[2022-08-24] MEDS: Nystatin TOP POWDER 15 GM BTL TOPICAL SCH ×3 (10:52→20:59)
[2022-08-24] MEDS: Al Hydrox/Mg Hydrox/Simet LIQ 30 ML UDC PO PRN (12:13)
[2022-08-24] MEDS: Enoxaparin 40 MG/0.4 ML SYR SUBCUT SCH (17:23)
[2022-08-25 06:10] LABS: Hematocrit 23 % (35-47); Hemoglobin 7.2 g/dL (12.0-16.0); Mean Corpuscular HGB Conc 32 g/dL (31-36); Mean Corpuscular Hemoglobin 33 pg (27-31); Mean Corpuscular Volume 103 fL (80-97); Platelet Count 344 10^3/uL (150-450); Red Blood Count 2.19 10^6 /uL (3.70-4.87); Red Cell Distribution Width 21 % (10-15)
[2022-08-25 07:05] LABS: Albumin 2.5 g/dL (3.2-5.2); Calcium 7.6 mg/dL (8.6-10.3); Creatinine, Serum 0.42 mg/dL (0.51-0.95); Globulin 2.5 g/dL (2-4); Potassium 3.7 mmol/L (3.5-5.0); Total Bilirubin 2.7 mg/dL (0.2-1.0); eGFR CKD-EPI 123.6 (>60)
[2022-08-25] MEDS: FLUTICAS/UMECLI/VILANT 200-62.5-25 MDI (NF) INH SCH (07:42)
[2022-08-25] MEDS: Lactulose 30 ml UDC PO SCH (09:11)
[2022-08-25] MEDS: Lidocaine PATCH 5% PATCH TRANSDERM SCH (09:12)
[2022-08-25] MEDS: Multivitamins/Minerals TAB PO SCH (09:12)
[2022-08-25] MEDS: Nystatin TOP POWDER 15 GM BTL TOPICAL SCH ×3 (09:13→21:24)
[2022-08-25] MEDS: Albuterol 2.5mg/3 ml (0.083%) NEB.SOLN INH PRN (13:52)
[2022-08-25] MEDS: Al Hydrox/Mg Hydrox/Simet LIQ 30 ML UDC PO PRN (17:52)
[2022-08-25] MEDS: Enoxaparin 40 MG/0.4 ML SYR SUBCUT SCH (17:52)
[2022-08-26] MEDS: FLUTICAS/UMECLI/VILANT 200-62.5-25 MDI (NF) INH SCH (08:01)
[2022-08-26] MEDS: Albuterol 2.5mg/3 ml (0.083%) NEB.SOLN INH PRN (08:02)
[2022-08-26 08:26] LABS: Albumin 2.6 g/dL (3.2-5.2); Albumin/Globulin Ratio 1.1 (1-3); Calcium 7.7 mg/dL (8.6-10.3); Creatinine, Serum 0.43 mg/dL (0.51-0.95); Globulin 2.3 g/dL (2-4); Potassium 3.7 mmol/L (3.5-5.0); Total Bilirubin 2.5 mg/dL (0.2-1.0); Total Protein 4.9 g/dL (6.4-8.9); eGFR CKD-EPI 122.9 (>60)
[2022-08-26] MEDS ORDERED: Furosemide 20 mg/2 ml IV VIAL IV ONE (09:12)
[2022-08-26] MEDS: Al Hydrox/Mg Hydrox/Simet LIQ 30 ML UDC PO PRN (09:20)
[2022-08-26] MEDS: Lactulose 30 ml UDC PO SCH (09:20)
[2022-08-26] MEDS: Multivitamins/Minerals TAB PO SCH (09:20)
[2022-08-26] MEDS: Nystatin TOP POWDER 15 GM BTL TOPICAL SCH ×3 (09:21→20:18)
[2022-08-26] MEDS: Lidocaine PATCH 5% PATCH TRANSDERM SCH ×3 (09:42→10:26)
[2022-08-26] MEDS: Albuterol/Ipratropium NEB.SOL (2.5/0.5 MG) 3 ML NEB.SOLN INH SCH ×2 (10:24→18:28)
[2022-08-26 12:08] LABS: INR 0.93 (0.88-1.18)
[2022-08-26] MEDS ORDERED: fentaNYL 100 mcg/2 ml 50 MCG/ML VIAL ONE (15:31)
[2022-08-27 06:57] LABS: Albumin 2.7 g/dL (3.2-5.2); Albumin/Globulin Ratio 1.1 (1-3); Direct Bilirubin 0.9 mg/dL (0.03-0.18); Globulin 2.4 g/dL (2-4); Indirect Bilirubin 1.4 mg/dL (0.3-1.0); Total Bilirubin 2.3 mg/dL (0.2-1.0); Total Protein 5.1 g/dL (6.4-8.9)
[2022-08-27] MEDS: FLUTICAS/UMECLI/VILANT 200-62.5-25 MDI (NF) INH SCH (07:51)
[2022-08-27] MEDS: Albuterol/Ipratropium NEB.SOL (2.5/0.5 MG) 3 ML NEB.SOLN INH SCH ×2 (07:52→19:02)
[2022-08-27] MEDS: Al Hydrox/Mg Hydrox/Simet LIQ 30 ML UDC PO PRN (09:28)
[2022-08-27] MEDS: Lactulose 30 ml UDC PO SCH (09:28)
[2022-08-27] MEDS: Enoxaparin 40 MG/0.4 ML SYR SUBCUT SCH (09:29)
[2022-08-27] MEDS: Multivitamins/Minerals TAB PO SCH (09:29)
[2022-08-27] MEDS: Lidocaine PATCH 5% PATCH TRANSDERM SCH ×2 (09:30)
[2022-08-27] MEDS: Nystatin TOP POWDER 15 GM BTL TOPICAL SCH ×2 (09:31→13:06)
[2022-08-27] MEDS ORDERED: Furosemide 40 mg/4 ml IV VIAL IV ONE (10:17)
[2022-08-27 10:36] LABS: Magnesium 1.8 mg/dL (1.9-2.7); Potassium 4.3 mmol/L (3.5-5.0)
[2022-08-27] MEDS ORDERED: Magnesium Sulfate 2 gm BAG 2 GM/50 ML BAG IVPB ONE (13:07)
[2022-08-28 06:58] LABS: Calcium 8.1 mg/dL (8.6-10.3); Creatinine, Serum 0.45 mg/dL (0.51-0.95); Potassium 3.9 mmol/L (3.5-5.0); eGFR CKD-EPI 121.6 (>60)
[2022-08-28] MEDS: FLUTICAS/UMECLI/VILANT 200-62.5-25 MDI (NF) INH SCH (07:19)
[2022-08-28] MEDS: Albuterol/Ipratropium NEB.SOL (2.5/0.5 MG) 3 ML NEB.SOLN INH SCH ×2 (07:20→20:04)
[2022-08-28] MEDS ORDERED: Furosemide 40 mg/4 ml IV VIAL IV ONE (09:56)
[2022-08-28] MEDS: Multivitamins/Minerals TAB PO SCH (10:01)
[2022-08-28] MEDS: Lactulose 30 ml UDC PO SCH (10:02)
[2022-08-28] MEDS: Al Hydrox/Mg Hydrox/Simet LIQ 30 ML UDC PO PRN (10:02)
[2022-08-28] MEDS: Enoxaparin 40 MG/0.4 ML SYR SUBCUT SCH (10:11)
[2022-08-28] MEDS: Lidocaine PATCH 5% PATCH TRANSDERM SCH ×2 (10:23→10:25)
[2022-08-29 06:08] LABS: Hematocrit 23 % (35-47); Hemoglobin 7.6 g/dL (12.0-16.0); Mean Corpuscular HGB Conc 33 g/dL (31-36); Mean Corpuscular Hemoglobin 34 pg (27-31); Mean Corpuscular Volume 102 fL (80-97); Mean Platelet Volume 7.1 fL (7.4-10.4); Platelet Count 355 10^3/uL (150-450); Red Blood Count 2.25 10^6 /uL (3.70-4.87); Red Cell Distribution Width 21 % (10-15); White Blood Count 10.3 10^3/uL (3.5-10.8)
[2022-08-29 06:35] LABS: Calcium 8.3 mg/dL (8.6-10.3); Creatinine, Serum 0.42 mg/dL (0.51-0.95); Potassium 3.7 mmol/L (3.5-5.0); eGFR CKD-EPI 123.6 (>60)
[2022-08-29] MEDS: Albuterol/Ipratropium NEB.SOL (2.5/0.5 MG) 3 ML NEB.SOLN INH SCH ×2 (07:24→20:01)
[2022-08-29] MEDS: FLUTICAS/UMECLI/VILANT 200-62.5-25 MDI (NF) INH SCH (07:24)
[2022-08-29] MEDS ORDERED: Potassium Chloride LIQUID 20 MEQ/15 ML LIQUID PO ONE (07:25)
[2022-08-29] MEDS: Lidocaine PATCH 5% PATCH TRANSDERM SCH ×2 (09:22→09:23)
[2022-08-29] MEDS: Al Hydrox/Mg Hydrox/Simet LIQ 30 ML UDC PO PRN (09:23)
[2022-08-29] MEDS: Lactulose 30 ml UDC PO SCH (09:23)
[2022-08-29] MEDS: Enoxaparin 40 MG/0.4 ML SYR SUBCUT SCH (09:23)
[2022-08-29] MEDS: Multivitamins/Minerals TAB PO SCH (09:23)
[2022-08-30 06:36] VITALS: BP 135/93
[2022-08-30] MEDS: Albuterol/Ipratropium NEB.SOL (2.5/0.5 MG) 3 ML NEB.SOLN INH SCH (07:02)
[2022-08-30] MEDS: FLUTICAS/UMECLI/VILANT 200-62.5-25 MDI (NF) INH SCH (07:03)
== END 2022-08-30 07:32 | disposition swing bed (61) | DRG 720 ==
LOC: ED 01:32 → EDHOLD 01:32 → SUATTDRO 04:45 → ICU 13:41 → MED 08-11 13:51
PROVIDERS: ADMIT Hospitalist; ATTEND Internal Medicine

== ENCOUNTER → 2022-09-05 17:31 | Observation (INO) ==
[2022-09-04] MEDS: Enoxaparin 40 MG/0.4 ML SYR SUBCUT SCH (11:10)
[2022-09-04] MEDS: Albuterol/Ipratropium NEB.SOL (2.5/0.5 MG) 3 ML NEB.SOLN INH SCH (19:42)
[2022-09-05] MEDS: Albuterol/Ipratropium NEB.SOL (2.5/0.5 MG) 3 ML NEB.SOLN INH SCH (07:03)
[2022-09-05] MEDS: Multivitamins/Minerals TAB PO SCH ×2 (08:09→08:11)
[2022-09-05] MEDS: Enoxaparin 40 MG/0.4 ML SYR SUBCUT SCH (08:10)
[2022-09-05 17:27] VITALS: BP 122/82
[~2022-09-05 17:31] MED LIST changes: +Al Hydrox/Mg Hydrox/Simet LIQ 30 ML UDC PO PRN; +Albuterol HFA INHALER 8 gm MDI INH PRN; +Buffered Lidocaine 1% SYRIN 1 ml INTRADERM ONE; +Dextran 70/Hypromellose Tears Eye Drops 15 ml BTL (for Artificials Tears) BOTH EYES PRN; +FLUTICAS/UMECLI/VILANT 200-62.5-25 MDI (NF) INH SCH; -Ketorolac INJ* 30 MG/ML 1 ML VIAL IV PUSH ONE; +Lactated Ringers 1000 ml BAG 1,000 ML IV SCH; +Lactulose 30 ml UDC PO SCH; +Lansoprazole SUSP ORALSYR 3 MG/ML PO SCH; +Multivitamins ADULT w/MIN LIQ 15 ML UDC PO SCH; +Naloxone 0.4 mg VIAL 0.4 mg/ml 1 ml VIAL IV PRN; +Ondansetron 4 mg VIAL 2 MG/ML 2 ml VIAL IV PRN; +Ondansetron ODT 4 mg TAB 4 MG TAB PO PRN; +fentaNYL 100 mcg/2 ml 50 MCG/ML VIAL IV PRN; +oxyCODONE/Acetamin 5/325 mg TAB PO PRN
== END | disposition swing bed (61) ==
LOC: MED
PROVIDERS: ADMIT Internal Medicine; ATTEND Internal Medicine
PROC: O.GIEGD (2022-09-04 13:05)